=== PATIENT | female | born 1995 | race Caucasian/White ===

== ENCOUNTER 2020-02-15 12:58 | Outpatient (CLI) | payer OTHER, SELFPAY ==
--- NOTE | ~2020-02-15 | XR_ITS ---
XR hip LT min 3V w AP pelvis DATE: 02/15/2020 13:34 INDICATION: Left hip pain. No injury. TECHNIQUE: AP pelvis. AP, lateral and crosstable lateral views of left hip COMPARISON: None FINDINGS: There is rotatory levoscoliosis and postoperative change of the lumbar spine. The pubic symphysis and sacroiliac joints are intact. Hip joint spaces are symmetric and well preserv ed. No fracture, dislocation, avascular necrosis or bone destruction of the left hip is detected. IMPRESSION: Rotatory levoscoliosis of the lumbar spine Postoperative change of the lumbar spine Reviewed, dictated and finalized at location A.
== END 2020-02-15 12:59 | disposition home or self-care (01) ==
LOC: ANHIMG 13:09
PROVIDERS: PCP Family Medicine; Visit Provider Family Medicine
DX: M25.552 Pain in left hip (principal)
CPT/HCPCS: 73502

== ENCOUNTER 2020-04-06 18:06 | Emergency (ER) | payer OTHER, SELFPAY ==
[2020-04-06 18:15] VITALS: BP 152/73; PULSE 80; RESP 16; TEMP 36.2; O2SAT 99
--- NOTE | 2020-04-06 18:27 | ED.GENADULT ---
HPI - General Adult General Chief complaint: Back Pain/Injury Stated complaint: LBP XTD Time Seen by Provider: 04/06/20 18:20 Source: patient Mode of arrival: ambulatory Limitations: no limitations History of Present Illness HPI narrative: Patient is a 24-year-old female who presents with low back pain upon waking denies injury or trauma has tried ibuprofen and Tylenol with minimal improvement. Patient denies radicular symptoms or paresthesias or any recent illness or other complaints. Related Data Allergies Allergy/AdvReac Type Severity Reaction Status Date / Time No Known Allergies Allergy Verified 04/06/20 18:52 Review of Systems Review of Systems: All systems reviewed & are unremarkable except as noted in HPI and below PMFSH Surgical History Surgical History (Updated 04/06/20 @ 18:33 by Curry Monroy PA-C) History of orthopedic surgery Social History Social History Gender identity (if verbalized by the patient): Female Exam Narrative: Exam Narrative: GENERAL: Well-appearing, well-nourished, and in no acute distress. HEAD: Normocephalic, atraumatic. EYES: PERRLA and EOMI. ENT: Nares clear, no rhinorrhea or epistaxis. Mucous membranes moist. CHEST: Clear to auscultation. No respiratory distress. No wheezes rales or rhonchi HEART: Regular rate and rhythm. No murmur heard. Normal peripheral pulses. EXTREMITIES: Normal range of motion. No edema. Tenderness across the lower lumbar spine SKIN: Warm, dry, no rash. NEURO: No focal deficits. Alert and oriented x3. Cranial nerves II through XII grossly intact PSYCH: Normal mood and affect. Course Course Emergency Course: Patient in the room aware of case findings treatment plan diagnosis agreeing to follow-up with primary care for further evaluation Vital Signs Vital signs: Vital Signs Temperature 97.2 F L 04/06/20 18:15 Pulse Rate 80 04/06/20 18:15 Respiratory Rate 16 04/06/20 18:15 Blood Pressure 152/73 H 04/06/20 18:15 Pulse Oximetry 99 04/06/20 18:15 Temperature 97.2 F L 04/06/20 18:15 Pulse Rate 80 04/06/20 18:15 Respiratory Rate 16 04/06/20 18:15 Blood Pressure 152/73 H 11/26/20 18:15 Pulse Oximetry 99 04/06/20 18:15 Medical Decision Making MDM Narrative Medical decision making narrative: Patients pain is positional in nature and localized to back without signs of cord compression or cauda equina based on neurological exam, skeletal exam and history. No fever or other significant factors to suggest osteomyelitis or spinal epidural abscess. No symptoms or signs to suggest pain is referred from abdominal or / cardiopulmonary sources. No pulsatile masses noted on exam. Patient ambulates with steady gait and is stable for outpatient management given case findings. Vital Signs Vital Signs: Vital Signs Temperature 97.2 F L 04/06/20 18:15 Pulse Rate 80 04/06/20 18:15 Respiratory Rate 16 04/06/20 18:15 Blood Pressure 152/73 H 04/06/20 18:15 Pulse Oximetry 99 04/06/20 18:15 Temperature 97.2 F L 04/06/20 18:15 Pulse Rate 80 04/06/20 18:15 Respiratory Rate 16 04/06/20 18:15 Blood Pressure 152/73 H 04/06/20 18:15 Pulse Oximetry 99 04/06/20 18:15 Lab Data Labs: Lab Results 04/06/20 Range/Units 18:42 Urine Color Yellow (Yellow) Urine Appearance Clear (Clear) Urine pH 6.0 (5.0-9.0) Ur Specific [place] 1.021 (1.001-1.035) Urine Protein Negative (Negative) mg/dL Urine Glucose (UA) Negative (Negative) mg/dL Urine Ketones Negative (Negative) mg/dL Ur Blood (Man) 1+ H (Negative) Urine Nitrate Negative (Negative) Urine Bilirubin Negative (Negative) Urine Urobilinogen Negative (<2.0) mg/dL Leukocyte Esterase Rfl Negative (Negative) FELY/UL Urine RBC 3-5 H (0-2) /hpf Urine WBC 0-3 /hpf Ur Squamous Epith Cells Many H (Few) /hpf Urine Bacteria Trace /hpf Urine Mucus
[2020-04-06 18:54] LABS: Add Urine Microscopic? YES; Appearance Urine Clear (Clear); Bacteria Urine Trace /hpf; Bilirubin Urine Negative (Negative); Blood Urine 1+ (Negative); Color Urine Yellow (Yellow); Glucose Urine UA Negative (Negative); Ketones Urine Negative (Negative); Leukocyte Esterase Ur Negative LEU/UL (Negative); Mucus Urine Rare /lpf; Nitrate Urine Negative (Negative); Protein Urine Negative (Negative); Specific Grav Ur 1.021 (1.001-1.035); Squamous Epithelial Cell Urine Many /hpf (Few); Urobilinogen Urine Negative mg/dL (<2.0); WBC Urine 0-3 /hpf
== END 2020-04-06 19:31 | disposition home or self-care (01) ==
PROVIDERS: Emergency Medicine Emergency Medical Services; Emergency Provider Emergency Medicine; PCP Family Medicine
DX: M54.5 Low back pain (principal)
CPT/HCPCS: 81001; 81025; 99283

== ENCOUNTER 2020-06-01 13:55 | Emergency (ER) | payer OTHER, SELFPAY ==
--- NOTE | ~2020-06-01 | XR_ITS ---
EXAMINATION: XR finger 2nd LT min 2V DATE: 06/01/2020 17:10 INDICATION: Pain and swelling at the left second digit one day post cat bite TECHNIQUE: Dorsal palmar and lateral views of the left second digit were obtained COMPARISON: None FINDINGS: Bone alignment is normal. No fracture. Joint spaces are normal. Prominent soft tissue swelling about the left second proximal phalanx. No subcutaneous gas or radiopaque foreign body. IMPRESSION: 1. Soft tissue swelling at the base of the left index finger. No osseous abnormality. Reviewed, dictated and finalized at location A. [employer] IMPRESSION: 1. Soft tissue swelling at the base of the left index finger. No osseous abnorm ality.
[2020-06-01 15:51] VITALS: BP 146/98; PULSE 83; RESP 18; TEMP 36.3; O2SAT 98
[2020-06-01 17:20] LABS: Basophils Absolute Auto 0.1 K/mm3 (0.0-0.1); Basophils Percent Auto 0.5 % (0.2-1.2); Eosinophils Absolute Auto 0.1 K/mm3 (0-0.3); Eosinophils Percent Auto 0.5 % (0-4.4); Hematocrit 40.6 % (37.0-47.0); Hemoglobin 13.4 g/dL (12.0-15.0); Immature Granulocyte Absolute 0.04 K/mm3 (0.00-0.031); Immature Granulocyte Percent A 0.4 % (0-0.5); Lymphocytes Absolute Auto 2.28 K/mm3 (0.9-3.2); Lymphocytes Percent Auto 21.7 % (18.3-44.2); Mean Corpuscular Hemoglobin 27.6 pg (26-34); Mean Corpuscular Volume 83.7 fl (80-100); Mean Platelet Volume 9.9 fl (7.4-10.4); Monocytes Absolute Auto 0.6 K/mm3 (0.1-0.6); Monocytes Percent Auto 5.4 % (2.6-8.5); Neutrophils Absolute Auto 7.5 K/mm3 (1.3-6.7); Neutrophils Percent Auto 71.5 % (45.5-73.1); Platelet Count Result 283 k/mm3 (150-375); Red Blood Count 4.85 M/mm3 (4.2-5.4); Red Cell Distribution Width 13.2 % (11.5-14.5); White Blood Count 10.5 K/mm3 (4.5-10.0)
[2020-06-01 17:31] LABS: Alanine Aminotransferase 12 U/L (4-35); Albumin Level 4.2 g/dL (3.5-5.1); Alkaline Phosphatase 89 U/L (38-126); Anion Gap 7 mmol/L (8-16); Aspartate Amino Transferase 20 U/L (14-36); Bilirubin,Total 0.6 mg/dL (0.2-1.3); Blood Urea Nitrogen 5 mg/dL (7-17); Calcium 9.2 mg/dL (8.4-10.2); Carbon Dioxide 26 mmol/L (22-30); Chloride 103 mmol/L (98-107); Estimated CRCL calculation 177 ml/min; Estimated Glomerular Filt Rate > 60; Glucose 81 mg/dL (65-105); Potassium 3.9 mmol/L (3.4-5.0); Sodium 136 mmol/L (137-145)
--- NOTE | 2020-06-01 17:42 | ED.ANIMALBIT ---
HPI - Animal Bite General Chief Complaint: Animal Bite Stated Complaint: Cat Bite Yesterday Time Seen by Provider: 06/01/20 16:06 Source: patient Mode of arrival: ambulatory Limitations: no limitations History of Present Illness HPI narrative: This patient is 24 year old female who presents for evaluation of left index finger infection. She states yesterday afternoon she suffered a cat bite to left index finger. She was seen at [facility] and she was started on Augmentin. Today she noticed increased redness and pus drainage cat puncture wounds. she returned back to ER and she was told to continue the augmentin. Her pain is worse with movement of finger. She denies fever, nausea, vomiting. She is 8 weeks . Related Data Home Medications Medication Instructions Recorded Confirmed 06/01/20 amoxicillin-pot clavulanate tablet BID 06/01/20 Allergies Allergy/AdvReac Type Severity Reaction Status Date / Time No Known Allergies Allergy Verified 04/06/20 18:52 Review of Systems Review of Systems: All systems reviewed & are unremarkable except as noted in HPI and below PMFSH Past Medical History Medical History (Updated 06/02/20 @ 02:25 by Denisa Islas MD) Anxiety Asthma Surgical History Surgical History (Updated 04/06/20 @ 18:33 by Curry Monroy PA-C) History of orthopedic surgery Social History Social History (Updated 06/02/20 @ 02:25 by Denisa Islas MD) Smoking status: Never smoker Gender identity (if verbalized by the patient): Female Exam Const: General: no acute distress and alert Orientation/consciousness: patient oriented x3 Eyes: EOM: EOMs intact bilaterally Resp: Effort & Inspection: normal respiratory effort Neuro: General: patient oriented x3 and moves all extremities Gait exam (Neuro): Normal gait present Extrem: Other: left hand - left index finger with puncture wound proximal palmar aspect of finger, there palmar erythema with pustule but no active drainage, She is able to extend finger and she is able to flex finger. TTP proximal palmar finger. swelling to proximal finger but no entire finger. Psych: Mental Status: mental status grossly normal Affect: normal affect Course Reevaluation(s) Reevaluation #1: I discussed discharge plan with patient. She is comfortable with discharge. She does not have flexor tenosynovitis at this point that needs emergent surgery. Dr. Lara will see tomorrow. Will continue augmentin Date: 06/01/20 Time: 19:56 Consultations Consultation #1: came to ER to evaluate patient. Patient given IV antibiotics. He agrees patient can be discharge and he will see her tomorrow. Date: 06/01/20 Time: 19:39 Vital Signs Vital signs: Vital Signs Temperature 97.3 F L 06/01/20 15:51 Pulse Rate 83 06/01/20 15:51 Respiratory Rate 18 06/01/20 15:51 Blood Pressure 146/98 H 06/01/20 15:51 Pulse Oximetry 98 06/01/20 15:51 Temperature 97.3 F L 06/01/20 15:51 Pulse Rate 85 06/01/20 18:53 Respiratory Rate 16 06/01/20 18:53 Blood Pressure 136/83 06/01/20 18:53 Pulse Oximetry 100 06/01/20 18:53 MDM - Animal Bite Lab Data Attestation: I reviewed the patient's lab results. Result diagrams: 06/01/20 17:11 06/01/20 17:11 Labs: Lab Results 06/01/20 06/01/20 Range/Units 17:11 17:11 WBC 10.5 H (4.5-10.0) K/mm3 RBC 4.85 (4.2-5.4) M/mm3 Hgb 13.4 (12.0-15.0) g/dL Hct 40.6 (37.0-47.0) % MCV 83.7 (80-100) fl MCH 27.6 (26-34) pg MCHC 33.0 (32-36) g/dl RDW 13.2 (11.5-14.5) % Plt Count 283 (150-375) k/mm3 MPV 9.9 (7.4-10.4) fl Immature Gran % (Auto) 0.4 (0-0.5) % Neut % (Auto) 71.5 (45.5-73.1) % Lymph % (Auto) 21.7 (18.3-44.2) % [place] % (Auto) 5.4 (2.6-8.5) % Eos % (Auto) 0.5 (0-4.4) % Baso % (Auto) 0.5 (0.2-1.2) % Lymph # (Auto) 2.28 (0.9-3.2) K/mm3 [place] # (Auto) 0.6 (0.1-0.6
[2020-06-01] MEDS: AMPICILLIN SULB 1.5 GM/NS 50ML 1.5 GM/50 ML VIAL IVPB (17:56)
[2020-06-01 18:53] VITALS: BP 136/83; PULSE 85; RESP 16; O2SAT 100
--- NOTE | 2020-06-01 19:36 | P.CONS_ITS ---
HPI Data of Consult Date/Time: 06/01/20 19:36 Primary Care Provider: Beatriz Savage, Consult Narrative Narrative: Hannah Watts is a 24 year old female who is . She is in the ED for evaluation and treatment of a painful cat bite of her left hand. This happened in the jaws of a stray cat at her home yesterday. There were two puncture wounds. The site became markedly inflamed today. In the ED she has been given IV Unisyn. She is UTD with her Tdap, she takes vitamins only. She is impressed with the pain she has. But, she is able to extend her index finger where the bites are near the MPJ. She tolerates passive extension of all joints. One bite is dorsal and the other is palmar. Both show surrounding erythema and some edema. She flexes about 50 %. No lymphangitis. No fever. It seems she has early cellulitis. Does not have tenosynovitis at this time. [facility] Surgical History Surgical History (Updated 04/06/20 @ 18:33 by Curry Monroy PA-C) History of orthopedic surgery Social History Social History Gender identity (if verbalized by the patient): Female Meds Home Medications and Allergies Home Medications Medication Instructions Recorded Confirmed Type 06/01/20 History amoxicillin-pot clavulanate tablet BID 06/01/20 History Allergies Allergy/AdvReac Type Severity Reaction Status Date / Time No Known Allergies Allergy Verified 04/06/20 18:52 Vital Signs Vital Signs - 24 hr 06/01/20 15:51 06/01/20 18:53 Temperature 36.3 C L Pulse Rate 83 85 Respiratory Rate 18 16 Blood Pressure 146/98 H 136/83 Pulse Oximetry 98 100 Results Labs CBC & Chem 7: 06/01/20 17:11 06/01/20 17:11 Labs: Short CBC 06/01/20 Range/Units 17:11 WBC 10.5 H (4.5-10.0) K/mm3 Hgb 13.4 (12.0-15.0) g/dL Hct 40.6 (37.0-47.0) % Plt Count 283 (150-375) k/mm3 BMP 06/01/20 17:11 Sodium 136 L Potassium 3.9 Chloride 103 Carbon Dioxide 26 BUN 5 L Creatinine 0.40 L Glucose 81 Calcium 9.2 Liver Function 06/01/20 Range/Units 17:11 Total Bilirubin 0.6 (0.2-1.3) mg/dL AST 20 (14-36) U/L ALT 12 (4-35) U/L Alkaline Phosphatase 89 (38-126) U/L Albumin 4.2 (3.5-5.1) g/dL
== END 2020-06-01 20:07 | disposition home or self-care (01) ==
PROVIDERS: Emergency Provider General Practice; PCP Family Medicine
DX: L08.9 Local infection of the skin and subcutaneous tissue, unspecified (principal); S61.251A Open bite of left index finger without damage to nail, initial encounter; Z33.1 Pregnant state, incidental; W55.01XA Bitten by cat, initial encounter
CPT/HCPCS: 36415; 73140; 80053; 85025; 96365; 99284; J0295

== ENCOUNTER 2020-08-21 11:07 | Emergency (ER) | payer OTHER, SELFPAY ==
[2020-08-21 11:42] VITALS: BP 137/88; PULSE 93; RESP 18; TEMP 36.3; O2SAT 99
[2020-08-21 11:59] LABS: Basophils Percent Auto 0.4 % (0.2-1.2); Eosinophils Absolute Auto 0.4 K/mm3 (0-0.3); Eosinophils Percent Auto 3.9 % (0-4.4); Hematocrit 38.2 % (37.0-47.0); Hemoglobin 12.8 g/dL (12.0-15.0); Immature Granulocyte Absolute 0.05 K/mm3 (0.00-0.031); Immature Granulocyte Percent A 0.5 % (0-0.5); Lymphocytes Absolute Auto 1.76 K/mm3 (0.9-3.2); Lymphocytes Percent Auto 17.8 % (18.3-44.2); Mean Corpuscular HGB Conc 33.5 g/dl (32-36); Mean Corpuscular Volume 83.6 fl (80-100); Mean Platelet Volume 9.8 fl (7.4-10.4); Monocytes Absolute Auto 0.5 K/mm3 (0.1-0.6); Monocytes Percent Auto 4.9 % (2.6-8.5); Neutrophils Absolute Auto 7.2 K/mm3 (1.3-6.7); Neutrophils Percent Auto 72.5 % (45.5-73.1); Platelet Count Result 286 k/mm3 (150-375); Red Blood Count 4.57 M/mm3 (4.2-5.4); White Blood Count 9.9 K/mm3 (4.5-10.0)
[2020-08-21 12:11] LABS: Alanine Aminotransferase 11 U/L (4-35); Albumin Level 3.8 g/dL (3.5-5.1); Alkaline Phosphatase 81 U/L (38-126); Anion Gap 5 mmol/L (8-16); Aspartate Amino Transferase 18 U/L (14-36); Bilirubin,Total 0.1 mg/dL (0.2-1.3); Blood Urea Nitrogen 4 mg/dL (7-17); Calcium 8.9 mg/dL (8.4-10.2); Carbon Dioxide 25 mmol/L (22-30); Chloride 106 mmol/L (98-107); Estimated CRCL calculation 184 ml/min; Estimated Glomerular Filt Rate > 60; Glucose 84 mg/dL (65-105); Lipase 112 U/L (23-300); Potassium 4.2 mmol/L (3.4-5.0); Sodium 136 mmol/L (137-145)
[2020-08-21 13:49] VITALS: BP 123/68; PULSE 82; RESP 20; TEMP 36.7; O2SAT 97
[2020-08-21] MEDS: PROMETHAZINE HCL 25 MG/ML AMPUL 12.5 MG IV PUSH (14:09)
[2020-08-21] MEDS: SODIUM CHLORIDE 0.9% IV 1,000 ML 999 ML IV CONT (14:10)
--- NOTE | 2020-08-21 14:25 | ED.NAVMDI ---
HPI - Nausea/Vomiting/Diarrhea General Chief complaint: Nausea/Vomiting/Diarrhea Stated complaint: Vomiting x1 week, Cough, Ear/Throat Pain, Time Seen by Provider: 08/21/20 13:52 History of Present Illness HPI Narrative: Patient is a 25-year-old female who presents ER with nausea vomiting diarrhea for the last 3 days. No relief with Zofran at home. No fevers or chills or sweats. She is currently 19 weeks . She has not felt her baby move yet. She sees an OB in [place]. No leakage of fluid from vagina or vaginal bleeding. No lower abdominal pain. She has no urinary symptoms. No known sick contacts. Related Data Home Medications Medication Instructions Recorded Confirmed 1 tablet PO DAILY 06/01/20 Allergies Allergy/AdvReac Type Severity Reaction Status Date / Time No Known Allergies Allergy Verified 04/06/20 18:52 Review of Systems Review of Systems: All systems reviewed & are unremarkable except as noted in HPI and below Constitutional: Constitutional: Denies chills, Denies fever(s) and Denies weakness ENT: Denies nasal congestion and Denies sore throat Respiratory: Respiratory: Denies cough and Denies dyspnea Gastrointestinal: Gastrointestinal: Denies abdominal pain, Reports diarrhea, Reports nausea and Reports vomiting Genitourinary: Genitourinary: Denies nocturia, Denies dysuria and Denies flank pain PMFSH Past Medical History Medical History (Updated 08/21/20 @ 16:29 by Subhash Velasquez MD) Anxiety Asthma Surgical History Surgical History (Updated 04/06/20 @ 18:33 by Curry Monroy PA-C) History of orthopedic surgery Social History Social History (Updated 06/02/20 @ 02:25 by Denisa Islas MD) Smoking status: Never smoker Gender identity (if verbalized by the patient): Female Exam Narrative: Exam Narrative: GENERAL: Well-appearing, well-nourished, and in no acute distress. HEAD: Normocephalic, atraumatic. ENT: Mucous membranes moist. CHEST: Clear to auscultation. No respiratory distress. HEART: Regular rate and rhythm. Normal peripheral pulses. ABDOMEN: Soft, nontender, nondistended, fundus palpated just below the umbilicus. EXTREMITIES: Normal range of motion. No edema. SKIN: Warm, dry, no rash. NEURO: Alert and oriented x3. PSYCH: Normal mood and affect. Course Course Emergency Course: Patient felt much better with IV fluids and antiemetics. Discharge home. Vital Signs Vital signs: Vital Signs Temperature 97.3 F L 08/21/20 11:42 Pulse Rate 93 08/21/20 11:42 Respiratory Rate 18 08/21/20 11:42 Blood Pressure 137/88 08/21/20 11:42 Pulse Oximetry 99 08/21/20 11:42 Temperature 98.0 F 08/21/20 13:49 Pulse Rate 82 08/21/20 13:49 Respiratory Rate 20 08/21/20 13:49 Blood Pressure 129/93 H 08/21/20 15:16 Pulse Oximetry 97 08/21/20 13:49 MDM - Nausea/Vomiting/Diarrhea Lab Data Result diagrams: 08/21/20 11:47 08/21/20 11:47 Labs: Lab Results 08/21/20 08/21/20 08/21/20 Range/Units 11:47 11:47 15:28 WBC 9.9 (4.5-10.0) K/mm3 RBC 4.57 (4.2-5.4) M/mm3 Hgb 12.8 (12.0-15.0) g/dL Hct 38.2 (37.0-47.0) % MCV 83.6 (80-100) fl MCH 28.0 (26-34) pg MCHC 33.5 (32-36) g/dl RDW 13.0 (11.5-14.5) % Plt Count 286 (150-375) k/mm3 MPV 9.8 (7.4-10.4) fl Immature Gran % (Auto) 0.5 (0-0.5) % Neut % (Auto) 72.5 (45.5-73.1) % Lymph % (Auto) 17.8 L (18.3-44.2) % [place] % (Auto) 4.9 (2.6-8.5) % Eos % (Auto) 3.9 (0-4.4) % Baso % (Auto) 0.4 (0.2-1.2) % Lymph # (Auto) 1.76 (0.9-3.2) K/mm3 [place] # (Auto) 0.5 (0.1-0.6) K/mm3 Eos # (Auto) 0.4 H (0-0.3) K/mm3 Baso # (Auto) 0.0 (0.0-0.1) K/mm3 Abs Immat Gran (auto) 0.05 H (0.00-0.031) K/mm3 Absolute Neuts (auto) 7.2 H (1.3-6.7) K/mm3 Absolute Nucleated RBC 0.0 (0.0-0.012) K/mm3 Nucleated RBC % 0.0 (0.0-0.2) % Sodium 136 L (137
[2020-08-21 14:32] VITALS: BP 132/56
[2020-08-21 15:01] VITALS: BP 131/82
[2020-08-21 15:16] VITALS: BP 129/93
[2020-08-21 15:47] LABS: Add Urine Microscopic? YES; Appearance Urine Cloudy (Clear); Bilirubin Urine Negative (Negative); Blood Urine Negative (Negative); Color Urine Yellow (Yellow); Glucose Urine UA Negative (Negative); Ketones Urine 1+ mg/dL (Negative); Leukocyte Esterase Ur Negative LEU/UL (Negative); Nitrate Urine Negative (Negative); Protein Urine Negative (Negative); Specific Grav Ur 1.014 (1.001-1.035); Urobilinogen Urine Negative mg/dL (<2.0)
[2020-08-21 16:08] LABS: RBC Urine 0-2 /hpf (0-2); WBC Urine 0-3 /hpf (0-3)
[2020-08-21 16:09] LABS: Bacteria Urine Trace /hpf; Mucus Urine Few /lpf; Squamous Epithelial Cell Urine Moderate /hpf (Few)
[2020-08-21 16:46] VITALS: BP 110/59; PULSE 80; RESP 16; O2SAT 98
== END 2020-08-21 16:46 | disposition home or self-care (01) ==
PROVIDERS: Emergency Medicine; Emergency Provider Emergency Medicine; PCP Family Medicine
DX: O99.612 Diseases of the digestive system complicating pregnancy, second trimester (principal); K52.9 Noninfective gastroenteritis and colitis, unspecified; O99.512 Diseases of the respiratory system complicating pregnancy, second trimester; J45.909 Unspecified asthma, uncomplicated; Z3A.19 19 weeks gestation of pregnancy
CPT/HCPCS: 36415; 80053; 81001; 83690; 85025; 96361; 96374; 99284; J2550; J7030

== ENCOUNTER 2020-08-29 17:44 | Emergency (ER) | payer OTHER, SELFPAY ==
--- NOTE | ~2020-08-29 | XR_ITS ---
EXAMINATION: XR chest 1V portable 08/29/2020 19:13 INDICATION: Cough and fever PROCEDURE: AP portable chest COMPARISON: 01/22/2016 FINDINGS: The lungs are clear. The cardiomediastinal silhouette is within normal limits. There are no pleural effusions. There is no pneumothorax suspected. There are Orr rods, position uncha nged. IMPRESSION: 1: NO ACUTE CARDIOPULMONARY DISEASE. Reviewed, dictated and finalized at location A.
[2020-08-29 17:59] VITALS: BP 135/76; PULSE 87; RESP 17; TEMP 36.3; O2SAT 97
--- NOTE | 2020-08-29 18:58 | ED.URI ---
HPI - URI/Sore Throat General Chief Complaint: Upper Respiratory Infection Stated Complaint: cough, ear pain x 4 weeks Time Seen by Provider: 08/29/20 18:50 Source: patient Mode of arrival: ambulatory Limitations: no limitations History of Present Illness HPI Narrative: This is a 25 year old female that presents to the ER for cold symptoms x 1 week. Reports cough, congestion, otalgia. Reports she has been using OTC medications with little relief. She is 20 weeks . Her OB is [facility] in [place]. Denies fever, pelvic cramping or vaginal bleeding. Related Data Home Medications Medication Instructions Recorded Confirmed 1 tablet PO DAILY 06/01/20 Allergies Allergy/AdvReac Type Severity Reaction Status Date / Time No Known Allergies Allergy Verified 08/29/20 18:03 Review of Systems Review of Systems: Narrative: CONSTITUTIONAL: Denies fever ENT: Reports rhinorrhea, congestion, otalgia. RESPIRATORY: Reports cough. Denies dyspnea All systems reviewed & are unremarkable except as noted in HPI and below PMFSH Past Medical History Medical History (Updated 08/29/20 @ 20:02 by Anisa Calix PA-C) Anxiety Asthma Surgical History Surgical History (Updated 04/06/20 @ 18:33 by Curry Monroy PA-C) History of orthopedic surgery Social History Social History (Updated 06/02/20 @ 02:25 by Denisa Islas MD) Smoking status: Never smoker Gender identity (if verbalized by the patient): Female Exam Narrative: Exam Narrative: GENERAL: Well-appearing, obese, and in no acute distress. HEAD: Normocephalic, atraumatic. EYES: EOMI. ENT: Nares clear, no rhinorrhea or epistaxis. Mucous membranes moist. Oropharynx without tonsillar hypertrophy exudate or other lesions. Bilateral TMs pearly kenny non-bulging NECK: Supple. No adenopathy or masses. CHEST: Clear to auscultation. No respiratory distress. No wheezes rales or rhonchi HEART: Regular rate and rhythm. No murmur heard. Normal peripheral pulses. EXTREMITIES: Normal range of motion. No edema. SKIN: Warm, dry, no rash. NEURO: No focal deficits. Alert and oriented x3. PSYCH: Normal mood and affect Course Vital Signs Vital signs: Vital Signs Temperature 97.4 F L 08/29/20 17:59 Pulse Rate 87 08/29/20 17:59 Respiratory Rate 17 08/29/20 17:59 Blood Pressure 135/76 08/29/20 17:59 Pulse Oximetry 97 08/29/20 17:59 Temperature 97.4 F L 08/29/20 17:59 Pulse Rate 87 08/29/20 17:59 Respiratory Rate 17 08/29/20 17:59 Blood Pressure 135/76 08/29/20 17:59 Pulse Oximetry 97 08/29/20 17:59 MDM - URI/Sore Throat MDM Narrative Medical decision making narrative: Patient presents to the ER for cold symptoms x 1 week. She is afebrile and nontoxic appearing. CBC with mild leukocytosis to 11.6. Metabolic panel without acute findings. Chest XR is clear. Patient is currently 20 weeks . heart tones noted to be in the 140s. She denies any pelvic cramping or vaginal bleeding. Patient updated on case findings. Instructed on care of viral infection. She is to follow-up with her primary doctor. She was given warnings to return to the ER Lab Data Attestation: I reviewed the patient's lab results. Result diagrams: 08/29/20 19:19 08/29/20 19:19 Labs: Lab Results 08/29/20 08/29/20 Range/Units 19:19 19:19 WBC 11.6 H (4.5-10.0) K/mm3 RBC 4.37 (4.2-5.4) M/mm3 Hgb 12.3 (12.0-15.0) g/dL Hct 36.5 L (37.0-47.0) % MCV 83.5 (80-100) fl MCH 28.1 (26-34) pg MCHC 33.7 (32-36) g/dl RDW 12.8 (11.5-14.5) % Plt Count 275 (150-375) k/mm3 MPV 9.8 (7.4-10.4) fl Immature Gran % (Auto) 0.8 H (0-0.5) % Neut % (Auto) 72.7 (45.5-73.1) % Lymph % (Auto) 20.4 (18.3-44.2) % [place] % (Auto) 4.4 (2.6-8.5) % Eos % (Auto) 1.2 (0-4.4) % Baso % (Auto) 0.5 (0.2-1.2) % Lymph # (Auto) 2.37 (0.9-3.2) K/mm3 [place] # (Auto) 0.5
[2020-08-29 19:30] LABS: Basophils Absolute Auto 0.1 K/mm3 (0.0-0.1); Basophils Percent Auto 0.5 % (0.2-1.2); Eosinophils Absolute Auto 0.1 K/mm3 (0-0.3); Eosinophils Percent Auto 1.2 % (0-4.4); Hematocrit 36.5 % (37.0-47.0); Hemoglobin 12.3 g/dL (12.0-15.0); Immature Granulocyte Absolute 0.09 K/mm3 (0.00-0.031); Immature Granulocyte Percent A 0.8 % (0-0.5); Lymphocytes Absolute Auto 2.37 K/mm3 (0.9-3.2); Lymphocytes Percent Auto 20.4 % (18.3-44.2); Mean Corpuscular HGB Conc 33.7 g/dl (32-36); Mean Corpuscular Hemoglobin 28.1 pg (26-34); Mean Corpuscular Volume 83.5 fl (80-100); Mean Platelet Volume 9.8 fl (7.4-10.4); Monocytes Absolute Auto 0.5 K/mm3 (0.1-0.6); Monocytes Percent Auto 4.4 % (2.6-8.5); Neutrophils Absolute Auto 8.5 K/mm3 (1.3-6.7); Neutrophils Percent Auto 72.7 % (45.5-73.1); Platelet Count Result 275 k/mm3 (150-375); Red Blood Count 4.37 M/mm3 (4.2-5.4); Red Cell Distribution Width 12.8 % (11.5-14.5); White Blood Count 11.6 K/mm3 (4.5-10.0)
[2020-08-29 19:44] LABS: Anion Gap 4 mmol/L (8-16); Blood Urea Nitrogen 6 mg/dL (7-17); Calcium 8.9 mg/dL (8.4-10.2); Carbon Dioxide 26 mmol/L (22-30); Chloride 106 mmol/L (98-107); Estimated CRCL calculation 148 ml/min; Estimated Glomerular Filt Rate > 60; Glucose 82 mg/dL (65-105); Potassium 4.1 mmol/L (3.4-5.0); Sodium 136 mmol/L (137-145)
[2020-08-29 20:30] VITALS: BP 123/79; PULSE 92; RESP 18; O2SAT 97
== END 2020-08-29 20:30 | disposition home or self-care (01) ==
PROVIDERS: Physician Assistant; Emergency Provider Emergency Medicine; PCP Family Medicine
DX: J06.9 Acute upper respiratory infection, unspecified (principal); F41.9 Anxiety disorder, unspecified; J45.909 Unspecified asthma, uncomplicated
CPT/HCPCS: 36415; 71045; 80048; 85025; 99283

== ENCOUNTER 2024-06-22 02:12 | Emergency (ER) | payer OTHER, SELFPAY ==
--- OUTSIDE RECORDS SUMMARY | 2024-06-22 02:14 | XMS_ITS | Clinical Summary ---
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 10/08/2020 Active Active Problems Problem Noted Date Diagnosed Date Spontaneous vaginal delivery ([facility] ([facility]) 01/10/2021 Social History Tobacco Use Types Packs/Day Years Used Date Smoking Tobacco: Never Smokeless Tobacco: Never Alcohol Use Standard Drinks/Week Comments Not Currently 0 (1 standard drink = 0.6 oz pur e alcohol) Humiliation, Afraid, Rape, and Kick questionnair e Answer Date Recorded Within the last year, have y ou been afraid of your partner or ex-partner? No 11/24/2020 Within the last year, have y ou been humiliated or emotionally abused in other ways by your partner or ex-partner? No Within the last year, have y ou been kicked, hit, slapped, or otherwise physically hurt by your partner or ex-partner? No 11/24/2020 Within the last year, have y ou been raped or forced to have any kind of sexual activity by your partner or ex-partner? No 11/24/2020 Depression Answer Date Recor ded Last EPDS Total Score 5 01/11/2021 Last EPDS Self Harm Result 01/11 Comments No Sex and Gender Information Value Date Recorded Sex Assigned at Not on file Legal Sex Female 7:24 PM CDT Gender Identity Not on file Sexual Orientation Not on file Last Filed Vital Signs Vital Sign Reading Time Taken Comments Blood Pressure 114/71 01/11/2021 8:17 PM CDT Pulse 94 01/11/2021 8:17 PM CDT Temperature 36.7 C (98.1 F) 01/11/2021 8:17 PM CDT Respiratory Rate 18 01/11/2021 8:17 PM CDT Oxygen Saturation 98% 01/11/2021 8:17 PM CDT Inhaled Oxygen Concentration - - Weight 103 kg (227 lb) 12/10/2020 11:00 PM CDT Height 154.9 cm (5' 1 ) 12/10/2020 11:00 PM CDT Body Mass Index 42.89 12/10/2020 11:00 PM CDT Plan of Treatment Health Maintenance Due Date Last Done Comments Annual Physical 1996 Hepatitis C 07/30/2011 Hepatitis B Vaccines (1 of 3 - 19+ 3-dose series) 2012 Cervical Cancer Screening Pap Smear (Age 30 to 64) Every 3 Years 06/04/2023 06/04/2020 Cervical Cancer Screening Pap with HPV Testing (Age 30 to 64) Every 5 Years 07/30/2023 06/04/2020 Cervical Cancer Screening with HPV 07/30/2023 COVID-19 Vaccine ( season) 2024 06/09/2020 Influenza Adult (#1) 2024 02/07/2014 DTaP, Tdap and Td Vaccines (3 - Td or Tdap) 03/21/2024 03/21/2014, 12/23/1997, 01/23/1996, Additional history exists HPV Vaccines Aged Out No longer eligi ble based on patient's age to complete this topic Meningococcal B Vaccine Aged Out No l onger eligible based on patient's age to complete this topic Meningococcal Vaccine Aged Out No sav steve eligible based on patient's age to complete this topic Pneumococcal Vaccine: Pediatrics (0 to 5 Years) and At-Risk Patients (6 to 64 Years) Aged Out No longer eligible based on patient's age to complete this topic RSV Immunizations Under 20 Months Aged Out No longer eligible based on patient's age to complete this topic Insurance [employer] Advance Directives * Full Code (Latest Code Status on File) Date Activated Date Inactivated Comments 01/10/2021 1:45 AM 01/10/2021 7:57 PM Care Teams 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
--- OUTSIDE RECORDS SUMMARY | 2024-06-22 02:14 | XMS_ITS | Encounter Summary ---
Author Organization [facility] Address [facility] [place] [address] Care Team Providers Care Lead Warehouse Associate Name Role Phone Beatriz Savage MD Primary Care Provider [phone] Encounter Details Date Type Department Care Team (Late st Contact Info) Description 02/03/2021 Hospital Follow-up Call [facility] [place] [address] Sagrario Gaitan, RN Anesthesia Record Procedure Summary Procedure Name Responsible Anesthesiologist Anesthesia Start Time Anesthesia Stop Time LABOR EPIDURAL Events Date Time Event Comment 01/10/2021 1453 AN COLLAR BAND CREASER Prepped 02/07/2021 1547 ANE Not Admin Meds * Agents No agents on file. * Blood No blood administrations on file. Lines, Drains, and Airways No LDAs on file. documented in this encounter Social History Tobacco Use Types Packs/Day Years [...] on file Sexual Orientation Not on file COVID-19 Exposure Response Date Recorded In the last month, have you been in contact with someone who was confirmed or suspected to have Coronavirus / COVID-19? No / Unsure 01/10/2021 12:06 AM CDT documented as of this encounter Functional Status * RETIRED Are you deaf or do you have serious difficulty hearing Answer Date of Assessment Author Status No 01/10/2021 1:23 AM CDT Activ e * RETIRED Are you blind or do you have serious difficulty seeing, even when wearing glasses? Answer Date of Assessment Author Status No 01/10/2021 1:23 AM CDT Activ e * Do you have serious difficulty walking or climbing stairs? Answer Date of Assessment Author Status No 01/10/2021 1:23 AM CDT Teresa Tesfaye RN Active * Do you have difficulty dressing or bathing? Answer Date of Assessment Author Status No 01/10/2021 1:23 AM CDT Teresa Tesfaye RN Active * Because of a physical, mental, or emotional condition, do you have difficulty doing errands alone such as visiting a doctor's office or shopping? Answer Date of Assessment Author Status No 01/10/2021 1:23 AM CDT Teresa Tesfaye RN Active documented as of this encounter Mental Status * Because of a physical, mental, or emotional condition, do you have serious difficulty concentrating, remembering, or making decisions? Answer Entry Date Author Status No 01/10/2021 1:23 AM ILIANAT Teresa Tesfaye RN Active documented in this encounter Plan of Treatment Not on file documented as of this encounter Visit Diagnoses Not on filedocumented in this encounter Care Teams Lead Warehouse Associate Relationship Specialty Start Date End Date Beatriz Savage MD [address] [facility] [address] [place] [address] PCP - General 12/25/13 documented as of this encounter
--- OUTSIDE RECORDS SUMMARY | 2024-06-22 02:14 | XMS_ITS | Clinical Summary ---
Author Organization [facility] Address [address] [place] [address] Phone Care Team Providers Care Car Wash Attendant Automatic Name Role Phone Beatriz Savage MD Primary Care Provider [phone] Allergies Active Allergy Reactions Criticality Noted Date Comments Sulfamethoxazole-Trimethoprim Other (see Comments) 04/07/2020 Dizziness Medications predniSONE (DELTASONE) 50 MG Tablet Take 1 Tab by mouth daily. 9 Tab 04/07/2020 Active HYDROcodone-acet aminophen (NORCO) 5-325 MG Tablet Take 1 Tab by mouth every 6 hours as needed for Severe pain. 20 Tab 04/07/2020 Active Social History Tobacco Use Types Packs/Day Years Used Date Smoking Tobacco: Never Assessed Comments No Sex and Gender Information Value Date Recorded Sex Assigned at Not on file Legal Sex Female 6:04 PM FRAUD REPRESENTATIVE Gender Identity Not on file Sexual Orientation Not on file Last Filed Vital Signs Vital Sign Reading Time Taken Comments Blood Pressure 120/78 04/07/2020 8:13 PM FRAUD REPRESENTATIVE Pulse 73 04/07/2020 8:15 PM FRAUD REPRESENTATIVE Temperature 36.3 C (97.4 F) 04/07/2020 6:08 PM FRAUD REPRESENTATIVE Respiratory Rate 18 04/07/2020 8:15 PM FRAUD REPRESENTATIVE Oxygen Saturation 100% 04/07/2020 8:15 PM FRAUD REPRESENTATIVE Inhaled Oxygen Concentration - - Weight 95.3 kg (210 lb) 04/07/2020 6:08 PM FRAUD REPRESENTATIVE Height 154.9 cm (5' 1 ) 04/07/2020 6:08 PM FRAUD REPRESENTATIVE Body Mass Index 39.68 04/07/2020 6:08 PM FRAUD REPRESENTATIVE Plan of Treatment Health Maintenance Due Date Last Done Comments Hepatitis C Virus (HCV) Screening 1993 TdaP Immunization 1993 Pap Smear 2014 Cervical Cancer Screening (CCS) 07/30/2023 HPV/Cotest 07/30/2023 Influenza Immunization (#1) 2024 02/07/2020, 0 01/14/2017 SARS-COV-2 Immunization ( season) 2024 03/05/2021, 02/12/2021, 06/09/2020 Respiratory Syncytial Virus (RSV) Immunization (Adult) (1 - 1-dose 75+ series) 2068 Hepatitis B Immunization Completed 994, 1993, 1993 DTaP/Tdap/Td Immunization Discontinued 1997, 01/23/1996, 12/25/1994, Additional history exists Meningococcal Immunization (ACWY) Aged Out No longer eligible based on patient's age to complete this topic Pneumococcal Immunization Combined Aged Out No longer eligible based on patient's age to complete this topic Rotavirus Immunization Aged Out No lo nger eligible based on patient's age to complete this topic Insurance [address] [id number] MEDICAID [employer] Care Teams Car Wash Attendant Automatic Relationship Specialty Start Date End Date Beatriz Savage MD [address] [facility] [address] [place] [address] PCP - General Family Medicine 04/07/20
--- OUTSIDE RECORDS SUMMARY | 2024-06-22 02:14 | XMS_ITS | Data Portability ---
Author Organization [facility], [facility] Address [address] [place] [address] Care Team Providers Care Kitchen Operator Name Role Phone JEAN-CLAUDE DALY Primary Care Provider Assessment No assessment recorded. Plan of Treatment Reminders Order Date Submit Date Provider Last Modified By Organization Details Last Modified Time Details Appointments None record ed. Lab None record ed. Referral None record ed. Procedures None record ed. Surgeries None record ed. Imaging None record ed. Medication Orders None record ed. Patient TargetsNo targets recorded. Patient InstructionsNo instructions recorded. Reason for Referral None Reported. Problems Name Problem SNOMED Code Status Onset Date Resolution Date Notes Provider Name and Address Organization Details Recorded Time Gestatio n period, 18 weeks 29752147 Completed 202012/08/2020 18 weeks gestatio n of pregnanc y; Progress : Stable Added By: Michael Moralez Add to Current Problems : NO ProblemS tatus: Resolve Not Available [facility] 2 15:39:57 Gestatio n period, 28 weeks 12842063 Completed 202012/08/2020 28 weeks gestatio n of pregnanc y; Progress : Stable Added By: Michael Moralez Add to Current Problems : NO ProblemS tatus: Resolve Not Available [facility] 2 15:39:57 Hyperten myah in the obstetri c context Completed 202012/08/2020 Pre-exis ting essentia l hyperten myah complica ting pregnanc y, second trimeste r; Progress : Stable Added By: Michael Moralez Add to Current Problems : NO ProblemS tatus: Resolve Not Available [facility] 2 15:39:56 Normal pregnanc y in multigra yvette [id number] Completed 202002/20/2021 Encounte r for supervis ion of other normal pregnanc y, second trimeste r; Progress : Stable Added By: Michael Moralez Add to Current Problems : NO ProblemS tatus: Resolve; Start Date : 09/02/19 21 Encou nter for supervis ion of other normal pregnanc y, third trimeste r; Progress : Stable Added By: Jenn Truong Add to Current Problems : NO ProblemS tatus: Resolve Not Available [facility] 2 15:39:57 Gestatio n period, 30 weeks [id number] Completed 202012/08/2020 30 weeks gestatio n of pregnanc y; Progress : Stable Added By: Jenn Truong Add to Current Problems : NO ProblemS tatus: Resolve Not Available [facility] 2 15:39:56 Gestatio n period, 20 weeks 76507473 Completed 202012/08/2020 20 weeks gestatio n of pregnanc y; Progress : Stable Added By: Michael Moralez Add to Current Problems : NO ProblemS tatus: Resolve Not Available [facility] 2 15:39:55 Gestatio n period, 21 weeks [id number] Completed 202012/08/2020 21 weeks gestatio n of pregnanc y; Progress : Stable Added By: Elba Obando Add to Current Problems : NO ProblemS tatus: Resolve Not Available [facility] 2 15:39:58 Gestatio n period, 32 weeks [id number] Completed 202012/08/2020 32 weeks gestatio n of pregnanc y; Progress : Stable Added By: Jenn Truong Add to Current Problems : NO ProblemS tatus: Resolve Not Available [facility] 2 15:39:59 Hemoglob in A1C - diabetic control finding 579193453 Completed 202002/20/2021 Other abnormal glucose; Progress : Stable Added By: Moreno Whitehead Add to Current Problems : NO ProblemS tatus: Resolve Not Available [facility] 2 15:39:58 Pre-exis ting hyperten myah in obstetri c context 44706573 Completed 202002/20/2021 Unspecif ied pre-exis ting hyperten myah complica ting pregnanc y, unspecif ied trimeste r; Progress : Stable Added By: Shirley Montgomery i Add to Current Problems : NO ProblemS tatus: Resolve Not Available [facility] 2 15:39:59 Gestatio n period, 24 weeks 357791831 Completed 202012/08/2020 24 weeks gestatio n of pregnanc y; Progress : Stable Added By: Michael Moralez Add to Current Problems : NO ProblemS tatus: Resolve Not Available [facility] 2 15:40:[address] Concept Completed 202001/05/2021 Supervis ion of other high risk pregnanc ies, second trimeste r; Progress : Stable Added By: Michael Moralez Add to Current Problems : NO ProblemS tatus: Resolve Not Available [facility] 2 15:39:54 Gestatio n period, 34 weeks [id number] Completed 202001/05/2021 34 weeks gestatio n of pregnanc y; Progress : Stable Added By: Juli Bowen Add to Current Problems : NO ProblemS tatus: Resolve Not Available [facility] 2 15:39:56 Hyperten myah in the obstetri c context Completed 202002/20/2021 Pre-exis ting essentia l hyperten myah complica ting pregnanc y, third trimeste r; Progress : Stable Added By: Tereza Cagle Add to Current Problems : NO ProblemS tatus: Resolve Not Available [facility]:[address] Concept Completed 202002/20/2021 Decrease d movement s, third trimeste r, not applicab le or unspecif ied; Progress : Stable Added By: Tereza Cagle Add to Current Problems : NO ProblemS tatus: Resolve Not Available [facility] 2 15:39:[address] Concept Completed 202002/20/2021 Supervis ion of other high risk pregnanc ies, third trimeste r; Progress : Stable Added By: Tereza Cagle Add to Current Problems : NO ProblemS tatus: Resolve Not Available [facility] 2 15:39:58 Karen ry postpart um mood disturba nce [id number] Completed 202002/20/2021 Postpart um mood disturba nce; Progress : Stable Added By: Jenn Truong Add to Current Problems : NO ProblemS tatus: Resolve Not Available [facility] 2 15:39:56 Lochia finding Completed 202003/13/2021 Encounte r for routine postpart um follow-u p; Progress : Stable Added By: Juli Bowen Add to Current Problems : NO ProblemS tatus: Resolve Not Available [facility] 2 15:39:55 Gestatio n period, 38 weeks [id number] Completed 202002/20/2021 38 weeks gestatio n of pregnanc y; Progress : Stable Added By: Tereza Cagle Add to Current Problems : NO ProblemS tatus: Resolve Not Available [facility] 2 15:39:58 Gestatio n period, 37 weeks 67131323 Completed 202001/05/2021 37 weeks gestatio n of pregnanc y; Progress : Stable Added By: Jenn Truong Add to Current Problems : NO ProblemS tatus: Resolve Not Available [facility] 2 15:39:55 Gestatio n period, 36 weeks [id number] Completed 202001/05/2021 36 weeks gestatio n of pregnanc y; Progress : Stable Added By: Jenn Truong Add to Current Problems : NO ProblemS tatus: Resolve Not Available [facility] 2 15:39:59 Depressi on screenin g Completed 202003/13/2021 Encounte r for screenin g for maternal depressi on; Progress : Stable Added By: Juli Bowen Add to Current Problems : NO ProblemS tatus: Resolve Not Available [facility] 2 15:39:55 Antenata l screenin g Completed 202002/20/2021 Encounte r for antenata l screenin g for Streptoc occus B; Progress : Stable Added By: Jenn Truong Add to Current Problems : NO ProblemS tatus: Resolve Encounte r for antenata l screenin g for cervical length; Progress : Stable Added By: Elba Obando Add to Current Problems : NO ProblemS tatus: Resolve; Start Date : 09/12/19 Encou nter for other specifie d antenata l screenin g; Progress : Stable Added By: Tereza Cagle Add to Current Problems : NO ProblemS tatus: Resolve; Start Date : 08/17/19 Not Available [facility] 2 15:39:57 Insertio n of subcutan eous contrace ptive Active 2020 Encounte r for initial prescrip tion of implanta ble subderma l contrace ptive; Progress : Stable Added By: Juli Bowen Add to Current Problems : YES ProblemS tatus: Current Not Available [facility] 2 15:39:58 Antenata l screenin g for malforma tion Completed 202002/20/2021 Encounte r for antenata l screenin g for malforma tions; Progress : Stable Added By: Michael Moralez Add to Current Problems : NO ProblemS tatus: Resolve Not Available [facility] 2 15:40:00 Problem Notes None recorded. Medical Equipment None Reported. Allergies No known drug allergies Medications Name Sig Start Date Stop Date Status Note LastModified by Organization Details LastModified Time amoxicill in 500 mg capsule TAKE 1 CAPSULE BY MOUTH TWICE A DAY active Not Available Not Available No t Available acetamino phen 325 mg tablet TAKE 2 TABLETS (650 MG TOTAL) BY MOUTH EVERY 4 (FOUR) HOURS NEEDED. 07/18 completed Not Available Not Available Not Available triamcino lone acetonide 0.1 % topical cream APPLY A THIN LAYER TO AFFECTED AREA(S) TWICE A DAY 07/18 completed Not Available Not Available Not Available amoxicill in 875 mg tablet TAKE 1 TABLET BY MOUTH TWICE A DAY FOR 10 DAYS active Not Available Not Available No t Available promethaz ine 25 mg tablet TAKE 1 TABLET BY MOUTH EVERY 6 HOURS NEEDED FOR NAUSEA AND VOMITING 07/18 completed Not Available Not Available Not Available docusate sodium 100 mg capsule TAKE 1 CAPSULE (100 MG TOTAL) BY MOUTH 2 (TWO) TIMES DAILY NEEDED FOR CONSTIPA TION. 07/18 completed Not Available Not Available Not Available ibuprofen 600 mg tablet TAKE 1 TABLET BY MOUTH EVERY 6 HOURS NEEDED 07/18 completed Not Available Not Available Not Available fluticaso ne propionat e 50 mcg/actua tion nasal spray,vanesa pension USE 2 SPRAYS IN EACH NOSTRIL EVERY DAY AT BEDTIME 07/18 completed Not Available Not Available Not Available amoxicill in 875 mg-potass ium clavulana te 125 mg tablet TAKE 1 TABLET BY MOUTH TWICE A DAY active Not Available Not Available No t Available neomycin- polymyxin -hydrocor t 3.5 mg-10,000 unit/mL-1 % ear drops,vanesa p INSTILL 2 DROPS INTO BOTH EARS 4 TIMES DAILY active Not Available Not Available No t Available escitalop gerardo 10 mg tablet TAKE 1 TABLET BY MOUTH ONCE DAILY AFTER COMPLETI NG 5 MG TABLETS 07/18 completed Not Available Not Available Not Available escitalop gerardo 5 mg tablet TAKE 1 TABLET BY MOUTH ONCE DAILY FOR 1 WEEK 07/18 completed Not Available Not Available Not Available amoxicill in 09/29 completed amoxicil jackson RxNorm: [id number] Allow Substitu tion: False Refill Denied: No Refill DateOccu rred: 08/17/19 21 Edited by: Michael Rodriguez ) on 09/30/19 21 Stopped by: autumn(Michael Faria ) on 09/30/19 21 Not Available Not Available Not Available 01/25 completed Allow Substitu tion: False Refill Denied: No Refill DateOccu rred: 08/17/19 Edited by: Stefanie Torres ) on 01/26/20 Stopped by: Stefanie Torres ) on 01/26/20 21 Not Available Not Available Not Available cholecalc iferol (vitamin D3) 10 mcg/mL (400 unit/mL) oral drops 07/18 completed Not Available Not Available Not Available Nexplanon active Not Available Not Kamini ilable Not Available Vitamins Plus Low Iron 27 mg iron-1 mg tablet TAKE 1 TABLET BY MOUTH EVERY DAY 07/18 completed Not Available Not Available Not Available Vienva 0.1 mg-20 mcg tablet TAKE 1 TABLET BY MOUTH EVERY DAY active Not Available Not Available No t Available Zahraa 0.25 mg-35 mcg tablet TAKE 1 TABLET BY MOUTH EVERY DAY 07/18 completed Not Available Not Available Not Available Vitals Date Recorded Body height Body mass index (BMI) Body weight Body temperature Systolic blood pressure Diastolic blood pressure Provider Name and Address Organization Details Last Updated DateTime 2 154.94 cm 41.9 kg/m2 742806. 79 g 97.6 [degF] 116 mm[Hg] 68 mm[Hg] [employer] [facility] IV 18:56:27 Social History Question Answer Notes LastModified by Organizat ion Details LastModified Time What Is Your Relationship Status? Single Information not available 07/04/2021 Are You Sexually Active? Yes Information not available 07/04/2021 Sex: Unknown Functional Status None recorded. Mental Status None recorded. Family History Relationship Description Onset Age of this Age Resolved Age Notes LastModified by Organization Details LastModified Time Father Hypertensive disorder [email or web address] Not available 06/13 13:11:15 Mother Hypertensive disorder [email or web address] Not available 06/13 13:11:15 Mother Type 1 diabetes mellitus [email or web address] Not available 06/13 13:11:34 Medical History No medical history recorded. Gynecological History Statement/Question Response HPV Vaccine N Date of Last Pap Smear Current Control Method Implant Age at Menarche 14 Date of LMP 02/16/2021 Obstetrics History GPAL:G 3 P 3 0 0 3 Type Value Full Term 3 Living 3 Total 3 Past Encounters Encounter ID Performer Location Encounter Start Date Encounter Closed Date Diagnosis/Indication Diagnosis SNOMED-CT Code Diagnosis ICD10 Code Diagnosis Note [id number] DANIELA Pichardo [facility] [address] [facility] [place] [address] 07/18/2021 18:03:59 07/26/2021 14:37:51 Surveillance of contraception [id number] Z30.40 Discussed replacing the Nexplanon with an IUD as Hannah desires removal of the implant. She doesn't want to take pills, use a vaginal ring, or get depo-prove ra. Explained R/B/ARs of the progestero ne containing IUD:Risks of abnormal bleeding, uterine perforatio n (05/999), infection, interrupti on of , expulsion, failure, and ectopic in rare cases were reviewed and all questions were answered. Reviewed >99% efficacy as contracept june and potential for AUB/crampi ng for first few days to months, then likely lightening of cycles over time with approx 30% of pts developing amenorrhea .Education al pamphlet provided and Hannah will consider the MIrena IUD. Health Concerns Section Related Observation LastModified by Organization Detai ls LastModified Time None Recorded Concern Status LastModified by Organization Details LastModified Time None Recorded Advance Directives Directive None Recorded Payers Encounter Date Sequence Insurance Name Policy Number Policy Mary Covered Member ID Mary Member ID Guarantor Name 07/18/2021 1 [facility] - DOS ON OR AFTER 20 (MEDICAID REPLACEMENT - HMO) Hannah Stefanie [id number] Hannah Stefanie Notes Date Note Type Note Provider Name and Address Organization Details Recorded Time 07/18/2021 text/html Abnormal BleedingReported bypatient.Onset/Timing :irregular Duration:10-15 days/month Quality:spotting;irreg ular;heavy Associated Symptoms:fatigue;bloat ing Hannah is here with c/o irregular and heavy bleeding on Nexplanon since insertion. She has taken estrogen to stop the bleeding w/o much success. Nexplanon was inserted 03/2021. DANIELA Pichardo [address] [facility], [place], [address], [facility] [employer] 07/21/2021 09:09:05 OBGyn Episode Ob Episode Information Episode Created Date Number of Fetuses Patient Bloodtype Patient rh Status Prepregnancy Weight lbs Domestic Partner Domestic Partner Phone Father Name Borough Coordinator Status 07/04/19 22 1 CLOSED Fetus Data First Name Last Name Admitted to NICU Weight (g) Sex Living Outcome Pediatric Complications Fetus ID Race Codes Race Delivery Type 3486.76 1704 M Full Term [id number] Juan Carlos Calculation Initial Juan Carlos Date Initial Exam Date Initial Exam Provider Initial Ultrasound Date Last Menstrual Period Date Ultra Sound Weeks Gestation 0 Eighteen To Twenty Week Juan Carlos Update Ultra Sound Date Fundal Height At Umbil Quickening Date Ultra Sound Latest Weeks Gestation Final Juan Carlos Confirmed By Final Juan Carlos Confirmed Date Final Juan Carlos Date Ultra Sound Latest Days Gestation 0 0 Menstrual History Last Menstrual Date Menses Monthly On Bcp Conception Prior Menses Frequency Hcg Plus Date Menarche Onset Age Delivery Information Delivery Date Delivery Type Labor Anesthesia Weeks Gestation Incision Type Labor Labor Length Hrs Delivered By Post Complications Tubal Sterilization Discharge Date Comments 6 Discharge Information Feeding Method Contraceptive Method Maternal HG B and HCT Levels Ob Episode Information Episode Created Date Number of Fetuses Patient Bloodtype Patient rh Status Prepregnancy Weight lbs Domestic Partner Domestic Partner Phone Father Name Borough Coordinator Status 07/04/19 22 1 CLOSED Fetus Data First Name Last Name Admitted to NICU Weight (g) Sex Living Outcome Pediatric Complications Fetus ID Race Codes Race Delivery Type 2891.64 9 F Full Term [id number] Juan Carlos Calculation Initial Juan Carlos Date Initial Exam Date Initial Exam Provider Initial Ultrasound Date Last Menstrual Period Date Ultra Sound Weeks Gestation 0 Eighteen To Twenty Week Juan Carlos Update Ultra Sound Date Fundal Height At Umbil Quickening Date Ultra Sound Latest Weeks Gestation Final Juan Carlos Confirmed By Final Juan Carlos Confirmed Date Final Juan Carlos Date Ultra Sound Latest Days Gestation 0 0 Menstrual History Last Menstrual Date Menses Monthly On Bcp Conception Prior Menses Frequency Hcg Plus Date Menarche Onset Age Delivery Information Delivery Date Delivery Type Labor Anesthesia Weeks Gestation Incision Type Labor Labor Length Hrs Delivered By Post Complications Tubal Sterilization Discharge Date Comments 1 Discharge Information Feeding Method Contraceptive Method Maternal HG B and HCT Levels Ob Episode Information Episode Created Date Number of Fetuses Patient Bloodtype Patient rh Status Prepregnancy Weight lbs Domestic Partner Domestic Partner Phone Father Name Borough Coordinator Status 07/04/19 22 1 CLOSED Fetus Data First Name Last Name Admitted to NICU Weight (g) Sex Living Outcome Pediatric Complications Fetus ID Race Codes Race Delivery Type 3883.65 4704 M Full Term [id number] Juan Carlos Calculation Initial Juan Carlos Date Initial Exam Date Initial Exam Provider Initial Ultrasound Date Last Menstrual Period Date Ultra Sound Weeks Gestation 0 Eighteen To Twenty Week Juan Carlos Update Ultra Sound Date Fundal Height At Umbil Quickening Date Ultra Sound Latest Weeks Gestation Final Juan Carlos Confirmed By Final Juan Carlos Confirmed Date Final Juan Carlos Date Ultra Sound Latest Days Gestation 0 0 Menstrual History Last Menstrual Date Menses Monthly On Bcp Conception Prior Menses Frequency Hcg Plus Date Menarche Onset Age Delivery Information Delivery Date Delivery Type Labor Anesthesia Weeks Gestation Incision Type Labor Labor Length Hrs Delivered By Post Complications Tubal Sterilization Discharge Date Comments 4 Discharge Information Feeding Method Contraceptive Method Maternal HG B and HCT Levels
--- OUTSIDE RECORDS SUMMARY | 2024-06-22 02:15 | XMS_ITS | Patient Health Summary ---
Author Organization [facility] Address [address] [place] [address] Care Team Providers Care Experimental Display Builder Name Role Phone Beatriz Savage MD Primary Care Provider [phone] Note from [facility],non-owned Affiliates and Associated Physician Practices is amultiple site organization consisting of ambulatory clinics and hospital sitesin [place], [place] and [place]. This disclosure is being madepursuant to the Care Everywhere program and may not contain all information available regarding this patient. Last updated 18.[facility] Allergies No known active allergies Medications * Be aware that medications may not be up to date on this document. Alwaysverify current medications with the patient. * Prenat w/o T-[id number]-DHA (+DHA) 27-1 & 250 MG MISC(Started 03/28/2015) Take 1 Tab by mouth once daily 11 refills left * albuterol HFA (PROVENTIL;VENTOLIN;PROAIR) 108 (90 BASE) MCG/ACT inhaler (Started 03/28/2015) Inhale 2 Puffs by mouth every 6 hours as needed 5 refills left * ferrous sulfate 325 (65 FE) MG tablet(Started 10/27/2015) Take 1 Tab by mouth daily with breakfast * sertraline (Zoloft) 100 MG tablet Take 1 (one) tablet by mouth once daily * predniSONE (Deltasone) 20 MG tablet(Started 06/06/2022) Take 1 (one) tablet by mouth as directed * penicillin v potassium (Veetids) 500 MG tablet(Started 05/27/2022) Take 1 (one) tablet by mouth 2 times daily * ondansetron (Zofran) 8 MG tablet Take 1 (one) tablet by mouth as directed * meclizine (Antivert) 25 MG tablet Take 1 (one) tablet by mouth 3 times daily as needed * Vienva 0.1-20 MG-MCG tablet(Started 10/03/2022) Take 1 (one) tablet by mouth once daily * fluticasone propionate (Flonase) 50 MCG/ACT nasal spray Bryan 2 (two) sprays into each nostril as needed * norgestimate-ethinyl estradiol (Sprintec 28) 0.25-35 MG-MCG tablet Take 1 (one) tablet by mouth once daily * Etonogestrel (NEXPLANON SC) Inject 1 Each subcutaneously as directed * acetaminophen (Tylenol) 500 MG tablet(Started 12/17/2022) Take 2 (two) tablets by mouth every 6 hours as needed for Pain or Headache Maximum allowable Acetaminophen amount = 4 Grams (4000 mg) / 24 hours. * ibuprofen (Motrin) 600 MG tablet(Started 12/17/2022) Take 1 (one) tablet by mouth every 6 hours as needed for Pain * oxyCODONE, immediate release, (Roxicodone) 5 MG tablet(Started 12/17/2022) Take 1 (one) tablet by mouth every 6 hours as needed for Pain * sertraline (Zoloft) 50 MG tablet(Started 06/08/2024) Take 1 (one) tablet by mouth once daily * hydrOXYzine HCl (Atarax) 10 MG tablet Take 1 (one) tablet by mouth 4 times daily as needed for Itching * omeprazole (PriLOSEC) 40 MG capsule(Started 06/14/2024) Take 1 (one) capsule by mouth once daily Active Problems Problem Noted Date Diagnosed Date Encounter for surveillance of injectable contrac eptive 03/05/2016 Asthma 01/20/2014 History of depression 01/20/2014 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 Scoliosis (and kyphoscoliosis), idiopathic 04/25 Family history of congenital anomalies Threatened labor at term Resolved Problems Problem Noted Date Diagnosed Date Resolved Date 10/16/2015 12/09/2022 34 weeks gestation of 09/19/2015 12/09/2022 Screening, , for ma lformation by ultrasound 06/16/2015 07/12/2015 Chronic hypertension 04/17/2015 016 Asthma affecting , antepartum 04/17/2015 12/12/2015 High-risk 03/28/2015 12/10/19 23 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 (FLUCELVAX TRIVALENT; 6MO+), 0.5 ML (CCIIV3)(Given 02/07/2014) * INFLUENZA VACCINE, QUADR. (FLUZONE; FLULAVAL; FLUARIX; AFLURIA QUADRIVALENT; 6MO+), 0.5 ML (IIV4)(Given 01/14/2017) * TDAP (7yrs+)(Given 03/21/2014) Social History Tobacco Use Types Packs/Day Years Used Date Smoking Tobacco: Never Smokeless Tobacco: Never Alcohol Use Standard Drinks/Week Comments No 0 (1 standard drink = 0.6 oz pur e alcohol) AUDIT-C Answer Date Recorded Q1: How often do you have a drink containing alcohol? Never 12/17/2022 Q2: How many drinks containi ng alcohol do you have on a typical day when you are drinking? Patient does not drink Q3: How often do you have si x or more drinks on one occasion? Never 12/17/2022 Sex and Gender Information Value Date Recorded Sex Assigned at Not on file Gender Identity Not on file Sexual Orientation Not on file Last Filed Vital Signs Vital Sign Reading Time Taken Comments Blood Pressure 126/82 06/14/2024 9:07 AM MANAGER ELECTRICAL Pulse 71 06/14/2024 9:07 AM MANAGER ELECTRICAL Temperature 36.4 C (97.5 F) 12/17/2022 3:47 PM CDT Respiratory Rate 16 12/17/2022 5:01 PM CDT Oxygen Saturation 95% 12/17/2022 5:01 PM CDT Inhaled Oxygen Concentration 100% 04/27/2010 7 :00 AM MANAGER ELECTRICAL Weight 109.3 kg (241 lb) 06/14/2024 9:07 AM MANAGER ELECTRICAL Height 154.9 cm (5' 1 ) 06/14/2024 9:07 AM MANAGER ELECTRICAL Body Mass Index 45.54 06/14/2024 9:07 AM MANAGER ELECTRICAL Procedures * PATHOLOGY TISSUE(Performed 12/17/2022) Performed for Recurrent acute tonsillitis, Tonsillar hypertrophy * ENDOTRACHEAL TUBE NOTE(Performed 12/17/2022) * TONSILLECTOMY(Performed 12/17/2022) Performed for Recurrent acute tonsillitis, Tonsillar hypertrophy * HCG URINE QUALITATIVE - POCT (IP) INTERFACED(Performed 12/17/2022) * HCG URINE QUAL POCT NOTIFICATION(Performed 12/17/2022) Performed for Pre-op evaluation * TYPE + SCREEN PANEL(Performed 12/13/2022) Performed for Pre-op evaluation * BASIC METABOLIC PANEL (CALCIUM TOTAL)(Performed 12/13/2022) Performed for Pre-op evaluation * CBC W/O DIFFERENTIAL(Performed 12/13/2022) Performed for Pre-op evaluation * SONOGRAM - COMPLETE(Performed 07/03/2020) Performed for Date of last menstrual period (LMP) unknown, , unspecified gestational age (HCC) * TRICHOMONAS RAPID TEST(Performed 06/04/2020) * CHLAMYDIA + GC AMPLIFIED PROBE(Performed 06/04/2020) * HCG URINE QUALITATIVE - POINT OF CARE(Performed 12/12/2015) * IMAGING/RADIOLOGY/XRAY RESULTS ORDER(Performed 10/28/2015) * HGB HCT PANEL(Performed 10/26/2015) * TYPE + SCREEN PANEL(Performed 10/25/2015) Performed for Threatened labor at term ([facility]) * CBC W AUTO DIFFERENTIAL(Performed 10/25/2015) Performed for Threatened labor at term (HCC) * IMAGING/RADIOLOGY/XRAY RESULTS ORDER(Performed 10/25/2015) * GLUCOSE PROTEIN KETONE URINE - POINT OF CAR(Performed 10/24/2015) * GLUCOSE PROTEIN KETONE URINE - POINT OF CAR(Performed 10/10/2015) * CULTURE STREP B(Performed 10/03/2015) * GLUCOSE PROTEIN KETONE URINE - POINT OF CAR(Performed 10/03/2015) * SONOGRAM - COMPLETE(Performed 09/19/2015) * GLUCOSE PROTEIN KETONE URINE - POINT OF CAR(Performed 09/19/2015) * RPR(Performed 09/05/2015) * CBC W AUTO DIFFERENTIAL(Performed 09/05/2015) * GLUCOSE CHALLENGE(Performed 09/05/2015) * GLUCOSE PROTEIN KETONE URINE - POINT OF CAR(Performed 09/05/2015) * GLUCOSE PROTEIN KETONE URINE - POINT OF CAR(Performed 08/01/2015) * ECHO CONSULT - (Performed 07/18/2015) Performed for Encounter for supervision of other normal , first trimester ([facility]) * URINE MICROSCOPIC ONLY REFLEX TO CULTURE(Performed 07/06/2015) Performed for ([facility]) * URINALYSIS REFLEX MICROSCOPIC REFLEX CULTURE(Performed 07/06/2015) Performed for ([facility]) * CULTURE URINE(Performed 07/06/2015) Performed for ([facility]) * GLUCOSE PROTEIN KETONE URINE - POINT OF CAR(Performed 06/16/2015) * SONOGRAM - COMPLETE(Performed 06/16/2015) Performed for Encounter for supervision of other normal , first trimester ([facility]) * ALPHA FETOPROTEIN BLOOD MATERNAL QUAD PANEL(Performed 05/19/2015) * GLUCOSE CHALLENGE(Performed 05/19/2015) * GLUCOSE PROTEIN KETONE URINE - POINT OF CAR(Performed 05/19/2015) * SONOGRAM - COMPLETE(Performed 04/04/2015) * TYPE + SCREEN PANEL(Performed 03/28/2015) * TSH REFLEX FREE T4(Performed 03/28/2015) * RUBELLA ANTIBODY IGG TITER(Performed 03/28/2015) * RPR(Performed 03/28/2015) * CYTOLOGY CERVICAL/VAG PAP SCREEN THIN PREP(Performed 03/28/2015) * RUBELLA IMMUNE STATUS(Performed 03/28/2015) * HEPATITIS B SURFACE ANTIGEN W RFLX CONFIRMATION(Performed 03/28/2015) * CBC W AUTO DIFFERENTIAL(Performed 03/28/2015) * URINALYSIS REFLEX TO MICROSCOPIC NO CULTURE(Performed 03/28/2015) * OBSTETRIC PANEL (BEAKER)(Performed 03/28/2015) * CHLAMYDIA + GC AMPLIFIED PROBE(Performed 03/28/2015) * CULTURE URINE(Performed 03/28/2015) * HIV-1 HIV-2 ANTIBODY + HIV P24 AG PANEL(Performed 03/28/2015) * HCG URINE QUALITATIVE - POINT OF CARE(Performed 03/28/2015) * GLUCOSE PROTEIN KETONE URINE - POINT OF CAR(Performed 03/28/2015) * IMAGING/RADIOLOGY/XRAY RESULTS ORDER(Performed 09/07/2014) * IMAGING/RADIOLOGY/XRAY RESULTS ORDER(Performed 09/07/2014) * IMAGING/RADIOLOGY/XRAY RESULTS ORDER(Performed 09/07/2014) * HCG URINE QUALITATIVE - POCT (IP) [facility](Performed 07/28/2014) * HCG URINE QUALITATIVE - POINT OF CARE(Performed 06/20/2014) * GLUCOSE PROTEIN KETONE URINE - POINT OF CAR(Performed 06/20/2014) * IMAGING/RADIOLOGY/XRAY RESULTS ORDER(Performed 05/14/2014) * LAB RESULTS ORDER(Performed 05/13/2014) * IMAGING/RADIOLOGY/XRAY RESULTS ORDER(Performed 05/10/2014) * CBC W AUTO DIFFERENTIAL(Performed 05/10/2014) * BLOOD GASES CORD KEARA (ISTAT)(Performed 05/09/2014) * PATHOLOGY TISSUE EXAM (STL)(Performed 05/09/2014) * BLOOD GASES CORD ART (ISTAT)(Performed 05/09/2014) * TYPE + SCREEN PANEL(Performed 05/09/2014) * CBC W AUTO DIFFERENTIAL(Performed 05/09/2014) * GLUCOSE PROTEIN KETONE URINE - POINT OF CAR(Performed 05/07/2014) * IMAGING/RADIOLOGY/XRAY RESULTS ORDER(Performed 05/05/2014) * GLUCOSE PROTEIN KETONE URINE - POINT OF CAR(Performed 05/02/2014) * GLUCOSE PROTEIN KETONE URINE - POINT OF CAR(Performed 04/25/2014) * GLUCOSE PROTEIN KETONE URINE - POINT OF CAR(Performed 04/22/2014) * GLUCOSE PROTEIN KETONE URINE - POINT OF CAR(Performed 04/18/2014) * GLUCOSE PROTEIN KETONE URINE - POINT OF CAR(Performed 04/11/2014) * IMAGING/RADIOLOGY/XRAY RESULTS ORDER(Performed 04/07/2014) * GLUCOSE PROTEIN KETONE URINE - POINT OF CAR(Performed 04/04/2014) * SONOGRAM - COMPLETE(Performed 04/04/2014) * CULTURE STREP B(Performed 03/28/2014) Performed for Supervision of high-risk of young primigravida, third trimester * URINALYSIS REFLEX MICROSCOPIC REFLEX CULTURE(Performed 03/28/2014) Performed for Supervision of high-risk of young primigravida, third trimester * CULTURE URINE(Performed 03/28/2014) Performed for Supervision of high-risk of young primigravida, third trimester * GLUCOSE PROTEIN KETONE URINE - POINT OF CAR(Performed 03/21/2014) * US THYROID(Performed 03/07/2014) Performed for Supervision of high-risk of young primigravida, third trimester, Thyroid mass * GLUCOSE PROTEIN KETONE URINE - POINT OF CAR(Performed 03/07/2014) * SONOGRAM - COMPLETE(Performed 03/07/2014) * URINALYSIS REFLEX MICROSCOPIC REFLEX CULTURE(Performed 03/04/2014) Performed for Supervision of high-risk of young primigravida, third trimester * GLUCOSE PROTEIN KETONE URINE - POINT OF CAR(Performed 02/21/2014) * PROTEIN URINE TIMED QUANTITATIVE(Performed 02/07/2014) Performed for Chronic hypertension in , second trimester * PROTEIN CREATININE RATIO URINE TIMED PNL(Performed 02/07/2014) Performed for Chronic hypertension in , second trimester * T4 FREE(Performed 02/07/2014) * TSH(Performed 02/07/2014) * COMPREHENSIVE METABOLIC PANEL(Performed 02/07/2014) * CREATININE CLEARANCE URINE TIMED + BLOOD(Performed 02/07/2014) Performed for Chronic hypertension in , second trimester * GLUCOSE PROTEIN KETONE URINE - POINT OF CAR(Performed 02/07/2014) * SONOGRAM - COMPLETE(Performed 02/07/2014) Performed for Low lying placenta with hemorrhage, antepartum, second trimester * GLUCOSE PROTEIN KETONE URINE - POINT OF CAR(Performed 01/26/2014) * RPR(Performed 01/24/2014) * CBC W AUTO DIFFERENTIAL(Performed 01/24/2014) * COMPREHENSIVE METABOLIC PANEL(Performed 01/24/2014) * GLUCOSE CHALLENGE(Performed 01/24/2014) * GLUCOSE PROTEIN KETONE URINE - POINT OF CAR(Performed 01/24/2014) * URINE MICROSCOPIC ONLY(Performed 11/10/2013) * URINALYSIS REFLEX TO MICROSCOPIC NO CULTURE(Performed 11/10/2013) * MRI LUMBAR SPINE WWO CONTRAST(Performed 04/21/2012) Performed for Scoliosis (and kyphoscoliosis), idiopathic * XR SCOLIOSIS 1VW(Performed 03/27/2012) Performed for Scoliosis (and kyphoscoliosis), idiopathic * XR THORACIC SPINE 3VW(Performed 05/10/2011) Performed for Back pain, Scoliosis (and kyphoscoliosis), idiopathic * XR LUMBAR SPINE 2 OR 3VW(Performed 05/10/2011) Performed for Back pain, Scoliosis (and kyphoscoliosis), idiopathic * URINALYSIS REFLEX TO MICROSCOPIC NO CULTURE(Performed 05/10/2011) * HCG URINE QUALITATIVE(Performed 05/10/2011) * XR SCOLIOSIS 1VW(Performed 11/26/2010) Performed for Scoliosis (and kyphoscoliosis), idiopathic * XR SCOLIOSIS 1VW(Performed 05/14/2010) Performed for Scoliosis (and kyphoscoliosis), idiopathic * CT ANGIO CHEST(Performed 05/01/2010) Performed for Chest pain * HCG URINE QUALITATIVE(Performed 04/30/2010) * DIFFERENTIAL MANUAL(Performed 04/30/2010) * CBC W AUTO DIFFERENTIAL(Performed 04/30/2010) * PT PTT PANEL(Performed 04/30/2010) * BASIC METABOLIC PANEL (CALCIUM TOTAL)(Performed 04/30/2010) * D-DIMER(Performed 04/30/2010) * URINALYSIS REFLEX TO MICROSCOPIC NO CULTURE(Performed 04/30/2010) * CULTURE URINE(Performed 04/30/2010) * XR CHEST 2VW(Performed 04/30/2010) Performed for Chest pain * XR SCOLIOSIS 1VW(Performed 04/27/2010) Performed for Scoliosis (and kyphoscoliosis), idiopathic * HGB HCT PANEL(Performed 04/25/2010) * XR THORACOLUMBAR SPINE 2VW(Performed 04/24/2010) Performed for Scoliosis * BLOOD GASES ART + GLUC K CA+ PANEL(Performed 04/24/2010) * TYPE SCRN XMATCH RBC X2(Performed 04/24/2010) Performed for Scoliosis * HCG URINE QUALITATIVE - POINT OF CARE(Performed 04/24/2010) * TYPE + SCREEN PANEL(Performed 04/16/2010) * DIFFERENTIAL MANUAL(Performed 04/16/2010) * PTT(Performed 04/16/2010) * PT-INR(Performed 04/16/2010) * PHOSPHORUS BLOOD(Performed 04/16/2010) * MAGNESIUM BLOOD(Performed 04/16/2010) * BASIC METABOLIC PANEL (CALCIUM TOTAL)(Performed 04/16/2010) * CBC W AUTO DIFFERENTIAL(Performed 04/16/2010) * URINALYSIS REFLEX MICROSCOPIC REFLEX CULTURE(Performed 04/16/2010) * XR THORACIC SPINE BENDING VIEWS(Performed 04/16/2010) Performed for Scoliosis * IMAGING/RADIOLOGY/XRAY RESULTS ORDER(Performed 03/21/2010) * XR SCOLIOSIS 1VW(Performed 03/05/2010) Performed for Back pain * VITAMIN D 25-HYDROXY(Performed 11/27/2009) Performed for Joint Pain * ERYTHROCYTE SEDIMENTATION RATE(Performed 11/27/2009) Performed for Joint Pain * COMPREHENSIVE METABOLIC PANEL(Performed 11/27/2009) Performed for Joint Pain * CBC W AUTO DIFFERENTIAL(Performed 11/27/2009) Performed for Joint Pain * C-REACTIVE PROTEIN(Performed 11/27/2009) Performed for Joint Pain * URINALYSIS REFLEX MICROSCOPIC REFLEX CULTURE(Performed 11/27/2009) Performed for Joint Pain * XR TIBIA FIBULA LEFT 2VW(Performed 06/05/2009) Performed for Joint Pain-L/Leg * URINALYSIS REFLEX TO MICROSCOPIC NO CULTURE(Performed 06/05/2009) Performed for Joint Pain-L/Leg * HLA TYPING B27(Performed 06/05/2009) Performed for Joint Pain-L/Leg * CYCLIC CITRULLINATED PEPTIDE(CCP) AB IGG(Performed 06/05/2009) Performed for Joint Pain-L/Leg * DIANA BLOOD TITER(Performed 06/05/2009) Performed for Joint Pain-L/Leg * DIANA BLOOD SCREEN W/REFLEX TITER(Performed 06/05/2009) Performed for Joint Pain-L/Leg * SHOEMAKER (SM) ANTIBODY DAQUAN(Performed 06/05/2009) Performed for Joint Pain-L/Leg * SS-B (SJOGREN'S) ANTIBODY(Performed 06/05/2009) Performed for Joint Pain-L/Leg * SS-A (SJOGREN'S) ANTIBODY(Performed 06/05/2009) Performed for Joint Pain-L/Leg * GAS LINE INSTALLER SUPERVISOR ANTIBODY(Performed 06/05/2009) Performed for Joint Pain-L/Leg * SCLERODERMA 70 (SCL) ANTIBODY(Performed 06/05/2009) Performed for Joint Pain-L/Leg * DNA ANTIBODY DOUBLE STRANDED(Performed 06/05/2009) Performed for Joint Pain-L/Leg * ALDOLASE(Performed 06/05/2009) Performed for Joint Pain-L/Leg * VITAMIN D 25-HYDROXY(Performed 06/05/2009) Performed for Joint Pain-L/Leg * RHEUMATOID FACTOR BLOOD QUANTITATIVE(Performed 06/05/2009) Performed for Joint Pain-L/Leg * TSH(Performed 06/05/2009) Performed for Joint Pain-L/Leg * ERYTHROCYTE SEDIMENTATION RATE(Performed 06/05/2009) Performed for Joint Pain-L/Leg * CBC W AUTO DIFFERENTIAL(Performed 06/05/2009) Performed for Joint Pain-L/Leg * C-REACTIVE PROTEIN(Performed 06/05/2009) Performed for Joint Pain-L/Leg * COMPREHENSIVE METABOLIC PANEL(Performed 06/05/2009) Performed for Joint Pain-L/Leg * CK BLOOD(Performed 06/05/2009) Performed for Joint Pain-L/Leg Results * PATHOLOGY TISSUE (12/17/2022 2:25 PM CDT) Case Report Surgical Pathology Report Case: [id number] Authorizing Provider: Gerardo Rodriguez MD Collected: 12/17/2022 02:25 PM Ordering Location: [facility] OP Received: 12/17/2022 03:25 PM Pathologist: Anisa Lombardi MD Specimens: A) - Tonsil, Right, Right tonsil B) - Tonsil, Left, Left tonsil 12/18/2022 10:29 AM [facility] Final Diagnosis Tonsil, right, tonsillectomy (A): - Reactive follicular hyperplasia Tonsil, left, tonsillectomy (B): - Reactive follicular hyperplasia 12/18/2022 10:29 AM [facility] Microscopic Description and Comment Microscopic examination substantiates the final diagnosis. 12/18/2022 10:29 AM [facility] Clinical History The patient is a 27 year old woman with recurrent tonsillitis. 12/18/2022 10:29 AM [facility] Gross Description The requisition and specimen(s) are identified with the patient's name Hannah Martinez. Received in formalin, specimen A , is a 4 g, cerebriform, 3 x 2 x 1 cm tonsil with cryptic cut surface. Human Factors Ergonomist sections submitted in 1 cassette. Received in formalin labeled B are 4 g of pink-mobley cerebriform tissue ranging from 0.5 to 2.5 x 2.0 x 0.8 cm which are sectioned to reveal cryptic cut surfaces. Human Factors Ergonomist tissue submitted in 1 cassette. /ml 12/18/2022 10:29 AM [facility] Pathologist Location at [facility] 12/18/2022 10:29 AM CDT [facility] Disclaimer The performance characteristics of all immunohistochemical and indirect immunofluorescence stains (if any) cited in this report were determined by the Histopathology Laboratory of [facility]. Some of these tests were developed by our own laboratory and have not been cleared or approved by the US Food and Drug Administration. The FDA does not require this test to go through premarket FDA review. These tests are used for clinical purposes. They should not be regarded as investigational or for research. This laboratory is certified under the Clinical Laboratory Improvement Amendments (CLIA) as qualified to perform high complexity clinical laboratory testing. This case has been personally reviewed and interpreted by the attending (teaching) pathologist. 12/18/2022 10:29 AM CDT [facility] Embedded Images 12/18/2022 10:29 AM T [facility] Resection without Tumor (Tonsil, Right) 12/17/2022 2:25 PM CDT 12/17/2022 3:25 PM CDT Comment:Pre-op diagnosis: RECURRENT ACUTE TONSILLITIS; TONSILLAR HYPERTROPHY Resection without Tumor (Tonsil, Left) 12/17/2022 2:25 PM CDT 12/17/2022 3:25 PM CDT Comment:Pre-op diagnosis: RECURRENT ACUTE TONSILLITIS; TONSILLAR HYPERTROPHY Gerardo Rodriguez MD LAB - PATHOLOGY/CY TOLOGY ORDERABLES Performing Organization Address [facility]/State/[facility] Phone Number [facility] [address] [phone] * ETT LINE PERFORMABLE (12/17/2022 1:32 PM CDT) Narrative Shonna Nassar MD - 12/17/2022 1:32 PM CDT Shonna Nassar MD 12/17/2022 1:32 PM Endotracheal Tube Placement: Patient Location: OR. Intubation Event Date/Time: 12/17/2022 1:21 PM Procedure: intubation (38905). Procedure Section: Sedation: under general anesthesia. Indications for Airway Management: anesthesia Procedure pretreatments used? No Induction: standard IV Patient Position: sniffing Mask Ventilation: easy. Blade Type: Agus Blade Size: 3 Laryngoscopy View: grade 1 (full cords) Intubation Adjuncts: stylet and cricoid pressure Tube: endotracheal tube Placement: oral Tube type: cuff - inflated Tube Size (MM): 7 Depth of Insertion (CM): 22 Measured From: teeth Cuff volume (mL): 10 Cuff Inflated With: air Number of Attempts: 1. Placement Verified By: direct visualization, bilateral breath sounds, CO2 monitor and chest auscultation Tube secured with: adhesive tape. Dentition unchanged? Yes Difficult Airway? No. Procedure Start Time: 12/17/2022 1:21 PM. Procedure End Time: 12/17/2022 1:22 PM. Procedure Total Time: 1 minutes. Staff Section Anesthesia Provider: Shonna Nassar MD, Performed the procedure Provider #1: Ced Da Silva MD. Provider #2: Kamron Joaquin MD. Kamron Joaquin MD GENERAL ANESTHESIA ORDERABLES * HCG URINE QUALITATIVE - POCT (IP) INTERFACED (12/17/2022 12:25 PM CDT) HCG Qual Urine Negative Negative 12/17/2022 12:32 PM CDT [facility] Urine URINE / Unknown 12/17/2022 1 2:25 PM CDT 12/17/2022 12:32 PM CDT Gerardo Rodriguez MD LAB - POINT OF CAR E ORDERABLES Performing Organization Address City/[facility]/ZIP Co de Phone Number [id number] [place] [address], [facility] [phone] * HCG URINE QUAL POCT NOTIFICATION (12/17/2022 12:22 PM CDT) Comment Notification Label Only - See Separate Report 12/17/2022 1:32 PM CDT [facility] Urine URINE / Unknown 12/17/2022 1 2:22 PM CDT 12/17/2022 12:22 PM CDT Gerardo Rodriguez MD LAB - URINALYSIS O RDERABLES [facility] [address] [place] [address], [facility] [phone] * TYPE + SCREEN PANEL (12/13/2022 1:01 PM CDT) Only the most recent of5 resultswithin the time period is included. Pathologist [facility] Antibody Screen NEG 2:20 PM CDT [facility] ABO Rh B POS 12/13/2022 2:20 PM CDT [facility] Blood Bank BLOOD SPECIMEN / Unknown Lab Venipuncture / Unknown 12/13/2022 1:01 PM CDT 12/13/2022 1:39 PM CDT Harshal Pena POST CLOSING SPECIALIST-SPRINKLER FITTER LAB - BLOOD B ANK ORDERABLES [facility] [address] [place] [address], [facility] [phone] * CBC W/O DIFFERENTIAL (12/13/2022 1:01 PM CDT) [facility] WBC 9.1 3.5 - 10.5 10 3/uL 12/13/2022 1:38 PM CDT [facility] RBC 5.15 3.80 - 5.20 10 6/uL 12/13/2022 1:38 PM CDT [facility] Hemoglobin 13.8 12.0 - 15.6 g/dL 12/13/2022 1:38 PM T [facility] Hematocrit 42.8 35.0 - 45.0 % 12/13/2022 1:38 PM CDT [facility] MCV 83.1 80.7 - 98.3 fL 12/13/2022 1:38 PM CDT [facility] MCH 26.8 26.7 - 34.0 pg 12/13/2022 1:38 PM CDT [facility] MCHC 32.2 30.8 - 35.9 g/dL 12/13/2022 1:38 PM CDT [facility] RDW-SD 40.9 36.0 - 50.0 fL 12/13/2022 1:38 PM CDT [facility] RDW-CV 13.5 11.2 - 14.8 % 12/13/2022 1:38 PM [facility] Platelet Count 335 150 - 400 10 3/uL 12/13/2022 1:38 PM [facility] MPV 10.4 9.4 - 12.9 fL 12/13/2022 1:38 PM [facility] nRBC Absolute 0.00 0 10 3/uL 12/13/2022 1:38 PM [facility] nRBC Auto 0.0 0 /100 WBC 12/13/2022 1:38 PM [facility] Blood BLOOD SPECIMEN / Unknown Lab Venipuncture / Unknown 12/13/2022 1:01 PM CDT 12/13/2022 1:34 PM CDT [facility] - HEMATOL OGY ORDERABLES [facility] [address] [place] [id number], [facility] [phone] * BASIC METABOLIC PANEL (CALCIUM TOTAL) (12/13/2022 1:01 PM CDT) Only the most recent of3 resultswithin the time period is included. BUN 10 7 - 26 mg/dL 12/13/2022 2:04 PM [facility] Creatinine 0.67 0.56 - 0.96 mg/dL 12/13/2022 2:04 PM [facility] Sodium 143 136 - 145 mmol/L 12/13/2022 2:04 PM [facility] Potassium 4.5 3.5 - 4.5 mmol/L 12/13/2022 2:04 PM [facility] Chloride 107 98 - 107 mmol/L 12/13/2022 2:04 PM [facility] CO2 27 22 - 29 mmol/L 12/13/2022 2:04 PM [facility] Glucose 84 70 - 115 mg/dL 12/13/2022 2:04 PM [facility] Calcium 10.1 8.4 - 10.2 mg/dL 12/13/2022 2:04 PM CDT [facility] Anion Gap 14 8 - 18 12/13/2022 2:04 PM CDT [facility] BUN/Creatinine Ratio 15 7 - 23 12/13/2022 2:04 PM CDT [facility] Osmolality Calculated 294 270 - 300 mOsm/kg 12/13/2022 2:04 PM CDT [facility] eGFR by CKD-EPI >90 >=90 mL/min/1.7 3 m2 12/13/2022 2:04 PM T [facility] Blood BLOOD SPECIMEN / Unknown Lab Venipuncture / Unknown 12/13/2022 1:01 PM CDT 12/13/2022 1:34 PM CDT Harshal Pena APRN-SPRINKLER FITTER LAB - DIAMOND SIZER AND GRADER RY ORDERABLES [facility] [address] [place] [address], [facility] [phone] * SONOGRAM - COMPLETE (07/03/2020 9:48 AM MANAGER ELECTRICAL) Only the most recent of7 resultswithin the time period is included. Anatomical Region Laterality Modality Other 07/03/2020 9:48 AM MANAGER ELECTRICAL Narrative 07/03/2020 10:16 AM MANAGER ELECTRICAL [facility] PHONE: FAX: Pat. Name: HANNAH MARTINEZ Karen Connelly. No: [id number] Study Date: 07/03/2020 9:48am , Age: 03 1995, 24 Pregnancies: 3, Para 2 Height: 61 in Weight: 225 lb LMP: Unknown GA by US: 11w5d MIKI: 01/17/2021 GA Selected: 11w5d (Sonographic) MIKI: 01/17/2021 Referring MD: Fiona Savage MD Abstract Searcher: Rivka Terry RDMS CPT4: 89021 BMI: 42.51 Hist/Ind: Dating (Unknown LMP) Class III obesity History of hypertension History of spinal fusion Asthma MEASUREMENTS & AGE GROWTH EVALUATION Measurement GA Range Srce %for GA Ratios ----- ---- ------- CRL 5.0 cm 11w5d ([id number]) Hadl CRL 50% GA for sonogram 11w5d ([id number]) based on (CRL) Avg Heart Rate: 161 bpm EVAL, PLACENTA Location: intrauterine Gestational Sac: normal Yolk Sac: not seen Embryo: visualized Heart Rate: 161 bpm Anatomy!Seen!Not Seen!Comments Myometrium ! x ! ! Right Ovary ! ! x ! Left Ovary ! x ! ! Cul de sac ! x ! ! Calvarium* ! x ! ! Midline Falx*! ! x ! 4th Ventricle! ! x ! Lateral Ventr! ! x ! Choroid Plexu! ! x ! Nasal Bone* ! ! x ! Neck/Dorsum* ! ! !< 2 mm 4 CH* ! ! x ! Abdominal Cor! ! x ! Diaphragm* ! ! x ! Spine* ! ! x ! Stomach* ! ! x ! Kidneys* ! ! x ! Bladder* ! ! x ! Upper Extremi! x ! ! Lower Extremi! x ! ! CLINICAL SUMMARY Study Number: 1 IMPRESSION: 1) Bradley gestation, 11w5d by today's CRL measurement 2) No abnormalities were detected on first trimester anatomic survey RECOMMEND: Await noninvasive testing (NIPT) results. If those results predict a low risk of aneuploidy, schedule detailed anatomic survey around 20 weeks. Thank you for allowing us the opportunity to care for your patient. Jen Torres MD <Electronic Signature> 07/03/2020 10:16am Ordering Provider Unlisted Vi ORDERA BLES * CHLAMYDIA + GC AMPLIFIED PROBE (STL) (06/04/2020 9:29 PM MANAGER ELECTRICAL) Pathologist [facility] Chlamydia Amplified Probe Negative Negative 06/05/2020 10:51 AM MANAGER ELECTRICAL [facility] GC Amplified Probe Negative Negative 06/05/2020 10:51 AM MANAGER ELECTRICAL [facility] Microbiology PART OF UTERINE CERVIX / Unknown Collection / Unknown 06/04/2020 9:29 PM MANAGER ELECTRICAL 06/04/2020 9:34 PM MANAGER ELECTRICAL Narrative [facility] - 06/05/2020 10:51 AM MANAGER ELECTRICAL Results based on detection/no detection of ribosomal RNA by amplified method. Tita Lares MD LAB - MICROBIOLO GY ORDERABLES [facility] [address] [place], [place] [address], [facility] [phone] * TRICHOMONAS RAPID TEST (06/04/2020 9:29 PM MANAGER ELECTRICAL) Pathologist [facility] Trichomonas Rapid Test Negative Negative 06/04/2020 9:47 PM MANAGER ELECTRICAL [facility] Microbiology VAGINAL SWAB / Unknown Collection / Unknown 06/04/2020 9:29 PM MANAGER ELECTRICAL 06/04/2020 9:33 PM MANAGER ELECTRICAL Ttia Lares MD LAB - MICROBIOLO GY ORDERABLES Performing Organization Address City/[facility]/ZIP Co de Phone Number [facility] [address] [place] [address] * HCG URINE QUALITATIVE - POINT OF CARE (IP) (12/12/2015 10:34 AM CDT) Only the most recent of4 resultswithin the time period is included. [facility] HCG Qual Urine Negative Negative [facility] QC Verified Yes Yes [facility] POC T TESTING Urine specimen (specimen) URINE / Unknown 12/12/2015 10:34 AM CDT Elena Chau MD LAB - POINT OF CARE ORDERABLES Performing Organization Address [facility] Co de Phone Number [facility] [address] [place] [address] * IMAGING/RADIOLOGY/XRAY RESULTS ORDER (10/28/2015 11:39 PM CDT) Only the most recent of10 resultswithin the time period is included. Anatomical Region Laterality Modality Other Narrative 10/28/2015 11:39 PM CDT Ordered by an unspecified provider. Scanned Document IMAGING * (ABNORMAL) HGB HCT PANEL (10/26/2015 5:52 AM CDT) Only the most recent of2 resultswithin the time period is included. Pathologist [facility] Hemoglobin 8.8(L) 12.0 - 15.6 gm/dL 10/26/2015 6:13 AM CDT [facility] Hematocrit 28.2(L) 35.9 - 45.5 % 10/26/2015 6:13 AM CDT [facility] Blood BLOOD SPECIMEN / Unknown Lab Venipuncture / Unknown 10/26/2015 5:52 AM CDT 10/26/2015 6:03 AM CDT Zuri Turner MD LAB - HEMATOLOGY ORD ERABLES [facility] [address] [place] [address] * (ABNORMAL) CBC W AUTO DIFFERENTIAL (10/25/2015 5:22 PM CDT) Only the most recent of10 resultswithin the time period is included. [facility] WBC 14.0(H) 4.4 - 10.7 x10E9/L 10/25/2015 5:42 PM CDT [facility] WBC Corrected x10E9/L 10/25/2015 5:42 PM CDT [facility] RBC 4.42 3.80 - 5.20 x10E12/L 10/25/2015 5:42 PM CDT [facility] Hemoglobin 9.9(L) 12.0 - 15.6 gm/dL 10/25/2015 5:42 PM CDT [facility] Hematocrit 31.1(L) 35.9 - 45.5 % 10/25/2015 5:42 PM CDT [facility] MCV 70.4(L) 80.7 - 98.3 fl 10/25/2015 5:42 PM CDT [facility] MCH 22.4(L) 26.7 - 34.0 pg 10/25/2015 5:42 PM CDT [facility] MCHC 31.8 30.8 - 35.9 gm/dL 10/25/2015 5:42 PM CDT [facility] Platelet Count 291 153 - 416 x10E9/L 10/25/2015 5:42 PM CDT [facility] RDW-CV 16.2(H) 12.1 - 14.9 % 10/25/2015 5:42 PM CDT [facility] MPV 10.7 9.4 - 12.9 fl 10/25/2015 5:42 PM CDT [facility] Neutrophils % 77.8(H) 44.0 - 73.0 % 10/25/2015 5:42 PM CDT [facility] Lymphocytes % 16.2(L) 20.0 - 43.0 % 10/25/2015 5:42 PM CDT [facility] Monocytes % 4.7(L) 5.0 - 13.0 % 10/25/2015 5:42 PM CDT [facility] Eosinophils % 0.3 0.0 - 6.0 % 10/25/2015 5:42 PM CDT [facility] Basophils % 0.4 0.0 - 2.0 % 10/25/2015 5:42 PM CDT [facility] Immature Granulocytes 0.6 0 - 1 % 10/25/2015 5:42 PM CDT [facility] Neutrophil Absolute 10.92(H) 2.01 - 7.14 x10E9/L 10/25/2015 5:42 PM CDT [facility] Lymphocytes Absolute 2.27 1.07 - 3.94 x10E9/L 10/25/2015 5:42 PM CDT [facility] Monocytes Absolute 0.66 0.26 - 1.07 x10E9/L 10/25/2015 5:42 PM CDT [facility] Eosinophils Absolute 0.04 0 - 0.47 x10E9/L 10/25/2015 5:42 PM CDT [facility] Basophils Absolute 0.05 0 - 0.08 x10E9/L 10/25/2015 5:42 PM CDT [facility] Immature Granulocytes Absolute 0.08(H) 0.00 - 0.06 x10E9/L 10/25/2015 5:42 PM CDT [facility] nRBC Auto 0 /100 WBC 10/25/2015 5:42 PM CDT [facility] Blood BLOOD SPECIMEN / Unknown Venipuncture / Unknown 10/25/2015 5:22 PM CDT 10/25/2015 5:33 PM CDT Pat Sims POST CLOSING SPECIALIST-SPRINKLER FITTER LAB - HEMATOL OGY ORDERABLES [facility] [address] [place] [address] * GLUCOSE PROTEIN KETONE URINE - POINT OF CAR (10/24/2015 1:49 PM CDT) Only the most recent of23 resultswithin the time period is included. Glucose UA neg Negative [facility] Protein UA trace Negative [facility] Ketone UA neg Negative [facility] QC Verified Yes Yes [facility] POC T TESTING Urine specimen (specimen) URINE / Unknown 10/24/2015 1:49 PM CDT Chanelle Shelton MD LAB - POINT OF CARE ORDERABLES Performing Organization Address [facility]/ZIP Co de Phone Number [facility] [address] [place] [id number] [place] [address] * CULTURE STREP B (10/03/2015 2:19 PM CDT) Only the most recent of2 resultswithin the time period is included. [facility] Culture Negative for Beta Hemolytic Streptococcus Group B JOHN 10/06/2015 9:25 AM CDT [facility] Microbiology MISCELLANEOUS SAMPLES / Unknown Collection / Unknown 10/03/2015 2:19 PM CDT 10/03/2015 2:40 PM CDT Zuri Turner MD LAB - MICROBIOLOGY O RDERABLES Performing Organization Address [facility] Co de Phone Number [facility] [address] [place], [place] [address] [phone] * RPR (09/05/2015 3:12 PM CDT) Only the most recent of3 resultswithin the time period is included. Pathologist [facility] RPR Non Reactive Non Reactive 09/06/2015 8:25 AM CDT [facility] Blood BLOOD SPECIMEN / Unknown Venipuncture / Unknown 09/05/2015 3:12 PM CDT 09/05/2015 3:21 PM CDT Jacki Theodore MD LAB - CHEMISTRY TYRONE RENTERIA Performing Organization Address City/[facility]/ZIP Co de Phone Number [facility] [address] [place] [address] * GLUCOSE CHALLENGE (09/05/2015 3:12 PM CDT) Only the most recent of3 resultswithin the time period is included. Pathologist [facility] Glucose Challenge 92 64 - 140 mg/dL 09/05/2015 4:07 PM CDT [facility] Glucose Challenge Time 1510 09/05/2015 4:07 PM CDT [facility] Blood BLOOD SPECIMEN / Unknown Venipuncture / Unknown 09/05/2015 3:12 PM CDT 09/05/2015 3:21 PM CDT Jacki Theodore MD LAB - CHEMISTRY TYRONE RENTERIA [facility] [address] [place] [address] * ECHO CONSULT - (07/18/2015 10:46 AM MANAGER ELECTRICAL) 07/18/2015 10:4 6 AM MANAGER ELECTRICAL Narrative Procedure Note Reading, No - 07/18/2015 [facility] [place] [phone] Fax Echocardiogram Report Pat.Name: HANNAH MARTINEZ Pat.ID: [id number] St.Date: 07/18/2015 Exam Time: 10:46:00 AM Study Type: Echo Age: 1 1995,19Y Sex: FEMALE Sonogrphr: Susy Agrawal RDCS Pat. Stat.:Outpatient Procedures: 2D Complete, Doppler Complete, Color Flow Visit ID: [id number] SUMMARY: Study Data: GA: 25 weeks. MIKI: 10-30-15 . : 2. Para: 1. Type: Bradley. Lie: Breech. Impression: The echocardiogram was within normal limits; however small atrial septal defects and persistent ductus arteriosus cannot be excluded as findings. Findings: Anatomic Relationships: Left sided cardiac apex (levocardia). There is normal visceral-cardiac situs, and normal segmental cardiac anatomical relationship. Systemic Veins: There is normal systemic venous return. Pulmonary Veins: The visualized pulmonary veins drain normally to the left atrium. Right Atrium: The right atrial size is normal. Left Atrium: The left atrial size is normal. Atrial Septum: Patent foramen ovale is seen with the foramen flap bowing from right to left and color flow is right to left. Tricuspid Valve: The tricuspid valve is structurally normal. The inflow pattern is normal. Tricuspid velocity is within the normal range. There is no regurgitation present. Mitral Valve: The mitral valve is structurally normal. The inflow pattern is normal. Mitral velocity is within the normal range. There is no regurgitation present. Right Ventricle: The cavity size is normal. The wall thickness is normal. The systolic function is normal. RV Outflow Tract: The outflow tract is normal. Left Ventricle: The cavity size is normal. The wall thickness is normal. The systolic function is normal. LV Outflow Tract: The outflow tract is normal. Ventricular Septum: There is no defect with no shunting. Pulmonary Valve: Leaflets exhibited normal mobility. The transpulmonic velocity is within the normal range. There is no regurgitation present. Aortic Valve: Leaflets exhibited normal mobility. The transaortic velocity is within the normal range. There is no regurgitation present. Pulmonary Artery: The MPA is normal with confluent branch pulmonary arteries. Aorta: aortic arch visualized and is without obstruction by 2D, color flow and Doppler. Ductus Arteriosus: The antegrade flow velocity and pattern in the ductal arch is normal. A normal ductus arteriosus is appreciated. Hydrops Assessment: No pericardial effusion. No evidence of ascites or pleural effusion. Rhythm: The rhythm is normal. There is 1:1 AV conduction. Dopplers: Flow in the ductus venosus is normal. The umbilical vein flow pattern is normal. The umbilical artery flow pattern is normal. MEASUREMENTS: DOPPLER Mitral Valve MV pkE 0.3 m/s MV E/A 0.5 MV pkA 0.6 m/s Tricuspid Valve TV pkE 0.4 m/s TV E/A 0.6 TV pkA 0.7 m/s Aortic Valve AVpk; ap 0.9 m/s Heart rate 147 bpm AVpk; ap 3 mmHg Pulmonic Valve PV pkVel 0.6 m/s PV pkPG 2 mmHg HEART CIRC Circumference 84.5 mm Area 566 mm2 HRTC-THRC Value 0.5 THORAX CIRC Circumference 161 mm Area 2060 mm2 Signed 07/18/2015 12:04 PM Rachel Lopez MD Raven Coon MD ECHO ORDERABLES Performing Organization Address City/[facility]/ZIP Co de Phone Number [facility] [address] [place] [address] * (ABNORMAL) URINALYSIS MICROSCOPIC ONLY W/REFLEX CULTURE (07/06/2015 10:03 PM MANAGER ELECTRICAL) WBC UA 10-20(A) 0-2, 2-5 # /hpf 07/06/2015 11:09 PM [facility] Bacteria UA 2+(A) None Seen 07/06/2015 11:09 PM [facility] Epithelial Cell UA 10-20(A) 0-2, 2-5 # /hpf 07/06/2015 11:09 PM [facility] Reflex Status Culture to follow 07/06/2015 11:09 PM [facility] Urine URINE SPECIMEN OBTAINED BY CLEAN CATCH PROCEDURE / Unknown Collection / Unknown 07/06/2015 10:03 PM MANAGER ELECTRICAL 07/06/2015 10:35 PM MANAGER ELECTRICAL Natividad Khan DO LAB - URINALYSIS ORD ERABLES Performing Organization Address City/[facility] Co de Phone Number [facility] [address] [place] [address] * (ABNORMAL) URINALYSIS ROUTINE W/REFLEX TO CULTURE (07/06/2015 10:03 PM MANAGER ELECTRICAL) Only the most recent of5 resultswithin the time period is included. Color UA Angella(A) Straw, Yellow, Dark Yellow 07/06/2015 11:01 PM MANAGER ELECTRICAL [facility] Clarity UA Clear 07/06/2015 11:01 PM [facility] Specific [place] UA >1.030(H) 1.005 - 1.030 07/06/2015 11:01 PM [facility] pH UA 6.0 5.0 - 8.0 pH 07/06/2015 11:01 PM [facility] Protein UA 1+(A) Negative 07/06/2015 11:01 PM [facility] Blood UA Negative Negative 07/06/2015 11:01 PM [facility] Leukocyte UA Negative Negative 07/06/2015 11:01 PM [facility] Nitrite UA Negative Negative 07/06/2015 11:01 PM [facility] Glucose UA Negative Negative 07/06/2015 11:01 PM [facility] Ketone UA 1+(A) Negative 07/06/2015 11:01 PM [facility] Bilirubin UA Negative Negative 07/06/2015 11:01 PM [facility] Urobilinogen UA 1.0 0.1 - 1.0 EU/dL 07/06/2015 11:01 PM [facility] WBC UA Auto 10-20(A) 0-2, 2-5 # /hpf 07/06/2015 11:01 PM [facility] RBC UA Auto 5-10(A) 0-2, 2-5 # /hpf 07/06/2015 11:01 PM [facility] Bacteria UA Auto 1+(A) None seen 07/06/2015 11:01 PM [facility] Hyaline Casts UA Auto Reflex to manual(A) 0 - 2 #/lpf 07/06/2015 11:01 PM [facility] Reflex Status Culture to follow 07/06/2015 11:01 PM [facility] Urine URINE SPECIMEN OBTAINED BY CLEAN CATCH PROCEDURE / Unknown Collection / Unknown 07/06/2015 10:03 PM MANAGER ELECTRICAL 07/06/2015 10:35 PM [facility] Natividad Khan DO LAB - URINALYSIS ORD ERABLES [facility] [address] [place] [address] * CULTURE URINE (07/06/2015 10:03 PM [facility]) Only the most recent of4 resultswithin the time period is included. Culture 10,000-50,000 CFU/mL urogenital george JOHN 07/08/2015 1:55 PM MANAGER ELECTRICAL [facility] Urine URINE SPECIMEN OBTAINED BY CLEAN CATCH PROCEDURE / Unknown Collection / Unknown 07/06/2015 10:03 PM MANAGER ELECTRICAL 07/06/2015 10:35 PM MANAGER ELECTRICAL Natividad Khan DO LAB - MICROBIOLOGY O RDERABLES [facility] [address] [place], [place] [address], [facility] [phone] * ALPHA FETOPROTEIN BLOOD MATERNAL QUAD PANEL (05/19/2015 10:58 AM MANAGER ELECTRICAL) Results Report 05/20/2015 10:06 PM MANAGER ELECTRICAL [facility] ([facility]) Test Results *Screen Negative* 05/20/2015 10:06 PM MANAGER ELECTRICAL [facility] ([facility]) Gestational Age Weeks 16.4 WEEKS 05/20/2015 10:06 PM MANAGER ELECTRICAL [facility] ([facility]) Gestational Age Based On Ultrasound 05/20/2015 10:06 PM MANAGER ELECTRICAL [facility] ([facility]) Comment:16.4 on 05/19/2015 Maternal [age] at MIKI 22.2 YEARS 05/20/2015 10:06 PM MANAGER ELECTRICAL [facility] ([facility]) Race 05/20/2015 10:06 PM MANAGER ELECTRICAL [facility] ([facility]) Weight 204 lbs 05/20/2015 10:06 PM MANAGER ELECTRICAL [facility] ([facility]) Insulin Dependent Diabetes No 05/20/2015 10:06 PM MANAGER ELECTRICAL [facility] ([facility]) Multiple Gestation No 05/20/2015 10:06 PM MANAGER ELECTRICAL [facility] ([facility]) Alpha-Fetoprotein Value (EIA) 32.3 ng/mL 05/20/2015 10:06 PM MANAGER ELECTRICAL [facility] ([facility]) AFP MoM Value 1.10 05/20/2015 10:06 PM MANAGER ELECTRICAL [facility] ([facility]) hCG Value 68677 mIU/mL 05/20/2015 10:06 PM MANAGER ELECTRICAL [facility] ([facility]) hCG Mom 1.13 05/20/2015 10:06 PM MANAGER ELECTRICAL [facility] ([facility]) Estriol Value 0.55 ng/mL 05/20/2015 10:06 PM MANAGER ELECTRICAL [facility] ([facility]) Estriol MoM 0.64 05/20/2015 10:06 PM MANAGER ELECTRICAL [facility] ([facility]) MINA Value 144.06 pg/mL 05/20/2015 10:06 PM MANAGER ELECTRICAL [facility] ([facility]) Mina MoM Value 0.95 05/20/2015 10:06 PM MANAGER ELECTRICAL [facility] ([facility]) OSBR Risk 1 IN 8933 05/20/2015 10:06 PM MANAGER ELECTRICAL [facility] ([facility]) DSR (2nd Trimester) 1 IN 2367 05/20/2015 10:06 PM MANAGER ELECTRICAL [facility] ([facility]) DSR (By Age) 1 IN 1124 05/20/2015 10:06 PM MANAGER ELECTRICAL [facility] ([facility]) T18 Risk Not increased 05/20/2015 10:06 PM MANAGER ELECTRICAL [facility] ([facility]) T18 (by Age) 1:4377 05/20/2015 10:06 PM MANAGER ELECTRICAL [facility] ([facility]) Interpretation Comment 05/20/2015 10:06 PM MANAGER ELECTRICAL [facility] ([facility]) Comment: Interpretation: Screen Negative This result is screen negative for OSB, Down Syndrome and Trisomy 18. The AFP MoM and patient specific risks calculated are based on the gestational age and the clinical information provided. This test can identify up to 80% of open neural tube defects. Closed neural tube defects and some open defects may not be detected by this test. The combination of maternal age, AFP, hCG, uE3, and MINA identifies 75-80% of Down Syndrome. The combination of maternal age, AFP, hCG and uE3 identifies 60% of Trisomy 18 pregnancies. The [employer] recommends amniocentesis be offered to women age 35 and older. Recalculations are not recommended when gestational dating by LMP and ultrasound are within 10 days. Comments Comment 05/20/2015 10:06 PM MANAGER ELECTRICAL [facility] ([facility]) Comment: Purnima Laughlin, Ph.D., [facility] Principal Genetics Skidder Operator References: Available Upon Request. Multiples Of Median Cutoffs Abbreviation Definitions For AFP Elevations IDD- Insulin Dep Diabetes Bradley 2.5 Black 2.8 OSBR- Open Spina Bifida IDD 2.0 Twins 4.5 Risk DSR Cutoff 1:270 DSR- Down Syndrome Risk T18 Cutoff 1:100 T18- Trisomy 18 Down Syndrome and Trisomy 18 screening are considered Investigational For further inquiries contact [facility] at [phone]. Blood specimen (specimen) BLOOD SPECIMEN / Unknown Venipuncture / Unknown 05/19/2015 10:58 AM MANAGER ELECTRICAL 05/19/2015 11:06 AM MANAGER ELECTRICAL Narrative [facility] ([facility]) - 05/20/2015 10:06 PM MANAGER ELECTRICAL Performed at: - [facility] [place], [place] [id number] Welder Assistant: Norma Paz MD, Phone: [phone] Patrica Camp POST CLOSING SPECIALIST-SPRINKLER FITTER LAB - CHEMISTR Y ORDERABLES [facility] ([facility]) * TSH REFLEX FREE T4 (03/28/2015 11:57 AM MANAGER ELECTRICAL) Pathologist [facility] TSH 1.45 0.358 - 3.740 ulU/mL 03/28/2015 7:51 PM MANAGER ELECTRICAL [facility] Blood BLOOD SPECIMEN / Unknown Venipuncture / Unknown 03/28/2015 11:57 AM MANAGER ELECTRICAL 03/28/2015 7:27 PM MANAGER ELECTRICAL Kimberly Lopez POST CLOSING SPECIALIST-[facility] LAB - CHEMISTRY OR DERABLES Performing Organization Address City/[facility]/ZIP Co de Phone Number [facility] [address] [place] [address] * RUBELLA ANTIBODY IGG TITER (03/28/2015 11:57 AM MANAGER ELECTRICAL) Pathologist [facility] Rubella Antibody IgG 12.8 IU/mL 03/30/2015 5:57 PM MANAGER ELECTRICAL [facility] ([facility]) Comment: INTERPRETIVE INFORMATION: Rubella Antibody, IgG Less than 9 IU/mL ........ Not Detected 9 - 9.9 IU/mL ............ Indeterminate-Repeat testing in 10-14 days may be helpful. 10 IU/mL or Greater ...... Detected The best evidence for current infection is a significant change on two appropriately timed specimens, where both tests are done in the same laboratory at the same time. Blood specimen (specimen) BLOOD SPECIMEN / Unknown Venipuncture / Unknown 03/28/2015 11:57 AM MANAGER ELECTRICAL 03/28/2015 1:03 PM MANAGER ELECTRICAL Kimberly Lopez APRN-[facility] LAB - SEROLOGY ORD ERABLES [facility] ([facility]) [address] [place] [address], [facility] * CYTOLOGY CERVICAL/VAG SCREEN THIN PREP (03/28/2015 11:56 AM MANAGER ELECTRICAL) ThinPrep Pap See Scanned Report 04/12/2015 10:42 AM MANAGER ELECTRICAL [facility] REF LAB NON INTERF Miscellaneous samples (specimen) ENTIRE ENDOCERVIX / Unknown Collection / Unknown 03/28/2015 11:56 AM MANAGER ELECTRICAL 03/29/2015 11:52 AM MANAGER ELECTRICAL Kimberly Lopez APRN-[facility] LAB - PATHOLOGY/CY TOLOGY ORDERABLES Performing Organization Address City/[facility]/ZIP Co de Phone Number [facility] REF LAB NON INTERF [address] * (ABNORMAL) URINALYSIS ROUTINE AUTO (03/28/2015 11:56 AM MANAGER ELECTRICAL) Only the most recent of5 resultswithin the time period is included. Color UA Yellow Straw, Yellow, Dark Yellow 03/28/2015 1:26 PM MANAGER ELECTRICAL [facility] Clarity UA Cloudy 03/28/2015 1:26 PM MANAGER ELECTRICAL [facility] Specific [place] UA 1.018 1.005 - 1.030 03/28/2015 1:26 PM MANAGER ELECTRICAL [facility] pH UA 6.0 5.0 - 8.0 pH 03/28/2015 1:26 PM MANAGER ELECTRICAL [facility] Protein UA Trace(A) Negative 03/28/2015 1:26 PM MANAGER ELECTRICAL [facility] Blood UA Negative Negative 03/28/2015 1:26 PM MANAGER ELECTRICAL [facility] Leukocyte UA 1+(A) Negative 03/28/2015 1:26 PM MANAGER ELECTRICAL [facility] Nitrite UA Negative Negative 03/28/2015 1:26 PM MANAGER ELECTRICAL [facility] Glucose UA Negative Negative 03/28/2015 1:26 PM MANAGER ELECTRICAL [facility] Ketone UA Negative Negative 03/28/2015 1:26 PM MANAGER ELECTRICAL [facility] Bilirubin UA Negative Negative 03/28/2015 1:26 PM MANAGER ELECTRICAL [facility] Urobilinogen UA 0.2 0.1 - 1.0 EU/dL 03/28/2015 1:26 PM MANAGER ELECTRICAL [facility] WBC UA Auto 5-10(A) 0-2, 2-5 # /hpf 03/28/2015 1:26 PM MANAGER ELECTRICAL [facility] RBC UA Auto 10-20(A) 0-2, 2-5 # /hpf 03/28/2015 1:26 PM MANAGER ELECTRICAL [facility] Epithelial Cell UA Auto 5-10(A) 0-2, 2-5 # /hpf 03/28/2015 1:26 PM MANAGER ELECTRICAL [facility] Bacteria UA Auto 1+(A) None seen 03/28/2015 1:26 PM MANAGER ELECTRICAL [facility] Hyaline Casts UA Auto 2-5(A) 0 - 2 #/lpf 03/28/2015 1:26 PM [facility] Urine URINE SPECIMEN OBTAINED BY CLEAN CATCH PROCEDURE / Unknown Venipuncture / Unknown 03/28/2015 11:56 AM MANAGER ELECTRICAL 03/28/2015 1:10 PM MANAGER ELECTRICAL Kimberly Lopez APRN-SARAH LAB - URINALYSIS O RDERABLES [facility] [address] [place] [address] * RUBELLA IMMUNE STATUS (03/28/2015 11:56 AM MANAGER ELECTRICAL) Rubella Antibody IgG Immune Status Positive - Immune 03/28/2015 2:05 PM [facility] Blood BLOOD SPECIMEN / Unknown Venipuncture / Unknown 03/28/2015 11:56 AM MANAGER ELECTRICAL 03/28/2015 1:04 PM MANAGER ELECTRICAL Kimberly Lopez APRN-CN LAB - CHEMISTRY OR DERABLES Performing Organization Address City/[facility]/[place] [address] * CHLAMYDIA + GC AMPLIFIED PROBE (03/28/2015 11:56 AM MANAGER ELECTRICAL) Chlamydia Amplified Probe Negative Negative 03/29/2015 12:13 PM MANAGER ELECTRICAL [facility] GC Amplified Probe Negative Negative 03/29/2015 12:13 PM MANAGER ELECTRICAL [facility] Microbiology ENTIRE ENDOCERVIX / Unknown Venipuncture / Unknown 03/28/2015 11:56 AM MANAGER ELECTRICAL 03/28/2015 1:10 PM MANAGER ELECTRICAL Narrative [facility] - 03/29/2015 12:13 PM MANAGER ELECTRICAL Results based on detection/no detection of ribosomal RNA by amplified method. Kimberly Lopez APRNADAMS-[facility] LAB - MICROBIOLOGY ORDERABLES [facility] [address] [place], [place] [id number] [place] [address] * HEPATITIS B SURFACE ANTIGEN (03/28/2015 11:56 AM MANAGER ELECTRICAL) HBsAg Non Reactive Non Reactive 03/28/2015 2:05 PM MANAGER ELECTRICAL [facility] Blood BLOOD SPECIMEN / Unknown Venipuncture / Unknown 03/28/2015 11:56 AM MANAGER ELECTRICAL 03/28/2015 1:03 PM MANAGER ELECTRICAL Kimberly Lopez [facility] - CHEMISTRY OR DERABLES Performing Organization Address [facility] Co de Phone Number [facility] [address] [place] [address] * HIV-1 HIV-2 ANTIBODY + HIV P24 AG PANEL (03/28/2015 11:55 AM MANAGER ELECTRICAL) Pathologist [facility] HIV1/2 Ab + P24 Ag Non Reactive Non Reactive 03/28/2015 4:56 PM MANAGER ELECTRICAL [facility] Blood BLOOD SPECIMEN / Unknown Venipuncture / Unknown 03/28/2015 11:55 AM MANAGER ELECTRICAL 03/28/2015 1:03 PM MANAGER ELECTRICAL Narrative [facility] - 03/28/2015 4:56 PM MANAGER ELECTRICAL No Laboratory evidence of HIV infection. Kimberly Lopez [facility] - CHEMISTRY OR DERABLES Performing Organization Address City/[facility]/ZIP Co de Phone Number [facility] [address] [place] [id number] * HCG URINE QUALITATIVE - POCT (IP) [facility] (07/28/2014 10:25 AM CDT) Test Urine neg [facility] Urine specimen (specimen) 07/28/2014 10:25 AM CDT Shirley Mendez MD LAB - POINT OF CA RE ORDERABLES [facility] * LAB RESULTS ORDER (05/13/2014 8:00 PM MANAGER ELECTRICAL) Narrative 05/13/2014 8:00 PM MANAGER ELECTRICAL Ordered by an unspecified provider. Scanned Document LAB - THERAPEUTIC DR ALEX MONITORING ORDERABLES * (ABNORMAL) BLOOD GASES CORD KEARA (ISTAT) (05/09/2014 10:59 PM MANAGER ELECTRICAL) pH Cord Venous POCT 7.28 7.28 - 7.40 pH 05/09/2014 11:03 PM MANAGER ELECTRICAL [facility] pCO2 Cord Venous POCT 44 35 - 45 mmHg 05/09/2014 11:03 PM MANAGER ELECTRICAL [facility] pO2 Cord Venous POCT 33 22 - 33 mmHg 05/09/2014 11:03 PM [facility] HCO3 Cord Arterial POCT 21(L) 22 - 24 mmol/L 05/09/2014 11:03 PM [facility] BE Cord Venous POCT Calc -6 -6 - 2 mmol/L 05/09/2014 11:03 PM [facility] TCO2 Cord Venous POCT 22 22 - 30 mmol/L 05/09/2014 11:03 PM [facility] O2 Saturation % Cord Venous Calc POCT 55 % 05/09/2014 11:03 PM MANAGER ELECTRICAL [facility] Site CORD KEARA 05/09/2014 11:03 PM [facility] Sample iSTAT CORD V 05/09/2014 11:03 PM [facility] Blood CORD BLOOD SPECIMEN / Unknown 05/09/2014 10:59 PM MANAGER ELECTRICAL 05/09/2014 11:03 PM MANAGER ELECTRICAL Gosia Chu MD LAB - POINT OF CARE ORDERABLES [facility] [address] [place] [address] * GROSS + MICRO EXAM (STL) (05/09/2014 10:59 PM MANAGER ELECTRICAL) Case Report Surgical Pathology Report Case: [id number] Authorizing Provider: Ameena Yates MD Collected: 05/09/2014 10:59 PM Ordering Location: [address] Received: 05/10/2014 08:53 AM Pathologist: Shailesh Maria MD Specimen: Placenta 05/11/2014 3:19 PM MANAGER ELECTRICAL [facility] Final Diagnosis 1. Placenta, delivery: -- Third trimester placenta -- Three vessel umbilical cord -- Unremarkable membranes /[facility] 05/11/2014 3:19 PM [facility] Gross Description Received in formalin in a container labeled Hannah Martinez, placenta. The container holds a 610 gm, 17.5 x 15 x 3.5 cm bradley, partially circumvallate disk placenta with attached membranes and umbilical cord. The membranes rupture 6 cm from the placental disk margin and are mobley semitransparent. The umbilical cord inserts eccentrically 6.5 cm from the placental disk margin and measures 30 cm in length and up to 2.4 cm in diameter. The umbilical cord contains three vessels. The surface is purple-mobley. The vessels arborize in a normal pattern and are unremarkable. There are scattered areas of subchorionic fibrin. The maternal surface has well-developed intact lobular cotyledons. Serial sectioning shows red-brown parenchyma. There are no lesions or masses grossly identified. Human Factors Ergonomist sections are submitted as follows: A1 - Membranes and umbilical cord A2 - and maternal surface A3 - Maternal surface. DYT/rtc 05/11/2014 3:19 PM MANAGER ELECTRICAL [facility] Microscopic Description Sections of the umbilical cord show three vessels with no evidence of vasculitis or funisitis. Sections of the membranes show unremarkable histology and are free of inflammation. Meconium is not identified. Sections of the placental disc show mature chorionic villi with no evidence of hemorrhage or infarction. Subchorionic fibrin deposition is noted. /[facility] 05/11/2014 3:19 PM [facility] Pathology/Cytolo gy ENTIRE PLACENTA / Unknown 05/09/2014 10:59 PM MANAGER ELECTRICAL 05/10/2014 8:53 AM MANAGER ELECTRICAL Jacki Theodore MD LAB - PATHOLOGY/CYTO LOGY ORDERABLES [facility] [address] [place] [address] * (ABNORMAL) BLOOD GASES CORD ART (ISTAT) (05/09/2014 10:55 PM MANAGER ELECTRICAL) pH Cord Arterial POCT 7.21 7.20 - 7.34 pH 05/09/2014 11:03 PM MANAGER ELECTRICAL [facility] pCO2 Cord Arterial POCT 62.5(H) 45 - 55 mmHg 05/09/2014 11:03 PM MANAGER ELECTRICAL [facility] pO2 Cord Arterial POCT 14 12 - 25 mmHg 05/09/2014 11:03 PM MANAGER ELECTRICAL [facility] HCO3 Cord Arterial POCT 24.9 15 - 29 mmol/L 05/09/2014 11:03 PM MANAGER ELECTRICAL [facility] BE Cord Arterial POCT -5(L) -2.9 - 8.3 mmol/L 05/09/2014 11:03 PM MANAGER ELECTRICAL [facility] TCO2 Cord Arterial POCT 27 mmol/L 05/09/2014 11:03 PM [facility] O2 Saturation Cord Art % Calc POCT 12 % 05/09/2014 11:03 PM [facility] Site CORD ART 05/09/2014 11:03 PM [facility] Sample iSTAT CORD A 05/09/2014 11:03 PM MANAGER ELECTRICAL [facility] Blood CORD BLOOD SPECIMEN / Unknown 05/09/2014 10:55 PM MANAGER ELECTRICAL 05/09/2014 11:03 PM MANAGER ELECTRICAL Gosia Chu MD LAB - POINT OF CARE ORDERABLES [facility] [address] [place] [address] * BLOOD TYPE ABO+ RH PANEL (05/09/2014 10:36 AM MANAGER ELECTRICAL) Miscellaneous samples (specimen) BLOOD SPECIMEN / Unknown Venipuncture / Unknown 05/09/2014 10:36 AM MANAGER ELECTRICAL 05/09/2014 10:51 AM MANAGER ELECTRICAL Walter Samuel MD LAB - BLOOD BANK ORD ERABLES [facility] BLOOD BANK [facility] [address] [place] [id number], [facility] * US THYROID (03/07/2014 9:55 AM CDT) Anatomical Region Laterality Modality Chest Ultrasound 03/07/2014 12:5 4 PM CDT Impressions 03/07/2014 12:58 PM CDT 1. There is a large solid predominantly hyperechoic right thyroid nodule measuring 4.9 x 2.9 x 3.6 cm. Associated cystic spaces are present. Given the nodules size, fine needle aspiration biopsy is recommended. 2. Predominantly hypoechoic left-sided thyroid nodule measuring 1.6 x 1 x 0.9 cm with associated calcifications. Fine needle aspiration biopsy of this nodule is also recommended. Narrative 03/07/2014 12:58 PM CDT Examination: Thyroid sonogram History: Palpable right thyroid nodule Findings: Real-time grayscale sonography of the thyroid was performed. Right thyroid lobe measures 5.8 x 3 x 3.7 cm. There is a predominant hyperechoic solid nodule measuring 4.2 x 2.9 x 3.6 cm. No definite microcalcifications are seen. Cystic spaces are present within the nodule. Left lobe of the thyroid measures 5.1 x 1.6 x 1.5 cm. There is a left-sided 1.6 x 1 x 0.9 cm nodule. Associated shadowing likely calcification is noted. The lesion is predominantly hypoechoic. Isthmus thickness is 6 mm. Procedure Note Jordy Marcial MD - 03/07/2014 Examination: Thyroid sonogram History: Palpable right thyroid nodule Findings: Real-time grayscale sonography of the thyroid was performed. Right thyroid lobe measures 5.8 x 3 x 3.7 cm. There is a predominant hyperechoic solid nodule measuring 4.2 x 2.9 x 3.6 cm. No definite microcalcifications are seen. Cystic spaces are present within the nodule. Left lobe of the thyroid measures 5.1 x 1.6 x 1.5 cm. There is a left-sided 1.6 x 1 x 0.9 cm nodule. Associated shadowing likely calcification is noted. The lesion is predominantly hypoechoic. Isthmus thickness is 6 mm. IMPRESSION 1. There is a large solid predominantly hyperechoic right thyroid nodule measuring 4.9 x 2.9 x 3.6 cm. Associated cystic spaces are present. Given the nodules size, fine needle aspiration biopsy is recommended. 2. Predominantly hypoechoic left-sided thyroid nodule measuring 1.6 x 1 x 0.9 cm with associated calcifications. Fine needle aspiration biopsy of this nodule is also recommended. Edna Chaudhry POST CLOSING SPECIALIST-SPRINKLER FITTER US ORDERAB LES * PROTEIN CREATININE RATIO URINE TIMED PNL (02/07/2014 4:21 PM CDT) Volume 24 Hour Urine 2,330 mL 02/07/2014 4:30 PM CDT [facility] Collection Time Hours 24 hrs 02/07/2014 4:30 PM CDT [facility] Protein Urine 7.4 mg/dL 02/07/2014 4:30 PM CDT [facility] Creatinine Urine 41.98 mg/dL 02/07/2014 4:30 PM CDT [facility] Protein/Creatin ine Ratio Urine 0.18 02/07/2014 4:30 PM CDT [facility] Urine TIMED URINE SPECIMEN / Unknown 02/07/2014 4:21 PM CDT 02/07/2014 4:21 PM CDT Jacki Theodore MD LAB - URINE CHEMISTR Y ORDERABLES [facility] [address] [place] [address] * PROTEIN URINE TIMED QUANTITATIVE (02/07/2014 4:21 PM CDT) Volume 24 Hour Urine 2,330 mL 02/07/2014 4:30 PM CDT [facility] Collection Time Hours 24 hrs 02/07/2014 4:30 PM CDT [facility] Protein 24 Hour Urine 172 42 - 225 mg/24hr 02/07/2014 4:30 PM CDT [facility] Protein Urine 7.4 mg/dL 02/07/2014 4:30 PM CDT [facility] Urine TIMED URINE SPECIMEN / Unknown 02/07/2014 4:21 PM CDT 02/07/2014 4:21 PM CDT Jacki Theodore MD LAB - URINE CHEMISTR Y ORDERABLES Performing Organization Address [facility] Co de Phone Number [facility] [address] [place] [address] * TSH (02/07/2014 9:52 AM CDT) Only the most recent of2 resultswithin the time period is included. TSH 2.73 0.358 - 3.740 uIU/mL 02/07/2014 4:11 PM CDT [facility] Comment: Blood BLOOD SPECIMEN / Unknown 02/07/2014 9:52 AM CDT 02/07/2014 3:37 PM CDT Lorena Hopson Jarad [facility] LAB - DIAMOND SIZER AND GRADER RY ORDERABLES Performing Organization Address [facility] de Phone Number [facility] [address] [place] [address] * T4 FREE (02/07/2014 9:52 AM CDT) Pathologist [facility] T4 Free 1.09 0.65 - 1.34 ng/dL 02/07/2014 4:06 PM CDT [facility] Comment: Blood BLOOD SPECIMEN / Unknown 02/07/2014 9:52 AM CDT 02/07/2014 3:37 PM CDT Lorena Hopson Jarad [facility] - DIAMOND SIZER AND GRADER RY ORDERABLES Performing Organization Address [facility] de Phone Number [facility] [address] [place] [address] * (ABNORMAL) COMPREHENSIVE METABOLIC PANEL (02/07/2014 8:57 AM CDT) Only the most recent of4 resultswithin the time period is included. Glucose 56(L) 74 - 106 mg/dL 02/07/2014 4:06 PM CDT [facility] Sodium 137 136 - 145 mmol/L 02/07/2014 4:06 PM CDT [facility] Potassium 4.3 3.5 - 5.1 mmol/L 02/07/2014 4:06 PM CDT [facility] Chloride 104 98 - 107 mmol/L 02/07/2014 4:06 PM CDT [facility] CO2 26 22 - 31 mmol/L 02/07/2014 4:06 PM CDT [facility] Calcium 9.2 8.5 - 10.1 mg/dL 02/07/2014 4:06 PM CDT [facility] Anion Gap 7 5 - 15 mmol/L 02/07/2014 4:06 PM CDT [facility] BUN 4(L) 7 - 21 mg/dL 02/07/2014 4:06 PM CDT [facility] Creatinine 0.31(L) 0.50 - 1.30 mg/dL 02/07/2014 4:06 PM CDT [facility] eGFR by MDRD >60 >60 mL/min/1.7 3m2 02/07/2014 4:06 PM CDT [facility] eGFR by MDRD >60 >60 mL/min/1.7 3m2 02/07/2014 4:06 PM CDT [facility] Alkaline Phosphatase 113 38 - 126 U/L 02/07/2014 4:06 PM CDT [facility] ALT 14 12 - 78 U/L 02/07/2014 4:06 PM CDT [facility] AST 8 5 - 40 U/L 02/07/2014 4:06 PM CDT [facility] Protein Total 7.4 6.4 - 8.2 gm/dL 02/07/2014 4:06 PM CDT [facility] Albumin 2.7(L) 3.4 - 5.0 gm/dL 02/07/2014 4:06 PM CDT [facility] Bilirubin Total 0.2 0.2 - 1.0 mg/dL 02/07/2014 4:06 PM T [facility] Blood BLOOD SPECIMEN / Unknown 02/07/2014 8:57 AM CDT 02/07/2014 3:37 PM CDT Raven Coon MD LAB - CHEMISTRY TYRONE RENTERIA [facility] Organization Address City/State/ZIP Co de Phone Number [facility] [address] [place] [address] * (ABNORMAL) CREATININE CLEARANCE URINE TIMED (02/07/2014 8:53 AM CDT) Volume 24 Hour Urine 2,330 mL 02/07/2014 3:59 PM [facility] Collection Time Hours 24 hrs 02/07/2014 3:59 PM T [facility] Height Inches 61 inches 02/07/2014 3:59 PM T [facility] Weight in Pounds 204 pounds 02/07/2014 3:59 PM CDT [facility] Surface Area 1.91 02/07/2014 3:59 PM CDT [facility] Creatinine 0.31(L) 0.50 - 1.30 mg/dL 02/07/2014 3:59 PM CDT [facility] Creatinine Urine 43.08 mg/dL 02/07/2014 3:59 PM [facility] Creatinine 24 Hour Urine 1,004 800 - 1,800 mg/24hr 02/07/2014 3:59 PM [facility] Creatinine Clearance 204(H) 87 - 107 mL/min/1.73 m2 02/07/2014 3:59 PM [facility] Urine TIMED URINE SPECIMEN / Unknown 02/07/2014 8:53 AM CDT 02/07/2014 3:39 PM CDT Jacki Theodore MD LAB - URINE CHEMISTR Y ORDERABLES Performing Organization Address City/State/[facility] Co de Phone Number [facility] [address] [place] [address] * (ABNORMAL) URINALYSIS MICROSCOPIC ONLY (11/10/2013 6:58 AM CDT) RBC UA 0-2, 2-5 # /hpf 11/10/2013 7:24 AM [facility] WBC UA 2-5 0-2, 2-5 # /hpf 11/10/2013 7:24 AM [facility] Bacteria UA 3+(A) None Seen, Trace 11/10/2013 7:24 AM [facility] Epithelial Cell UA 2-5 0-2, 2-5 11/10/2013 7:24 AM T [facility] Mucus UA 2+ 11/10/2013 7:24 AM [facility] Amorphous Urate Crystals 2+(A) None Seen 11/10/2013 7:24 AM [facility] Urine URINE SPECIMEN OBTAINED BY CLEAN CATCH PROCEDURE / Unknown 11/10/2013 6:58 AM CDT 11/10/2013 7:01 AM CDT Manny Irwin MD LAB - URINALYSIS ORD ERABLES [facility] [address] [place] [address] * MRI SPINE LUMBAR WITH AND WITHOUT CONTRAST (04/21/2012 6:44 PM MANAGER ELECTRICAL) Anatomical Region Laterality Modality Spine Magnetic Resonan ce Impressions 04/22/2012 3:54 PM MANAGER ELECTRICAL 1. Minimal diffuse disc bulges and facet arthropathy of the lower lumbar spine as described above. 2. Postsurgical enhancement, no abnormal enhancement is seen. The visualized portion of the central canal is patent. 3. Upper lumbar levels obscured due to blooming artifact, a lumbar spine CT could be considered for evaluation of the hardware integrity. Dictated by Piyush Beach MD Narrative 04/22/2012 3:54 PM MANAGER ELECTRICAL EXAMINATION: Magnetic resonance imaging (MRI) of the lumbar spine without contrast HISTORY: Back pain, status post spinal fusion April 2010. TECHNIQUE: MRI of the lumbar spine was performed with and without 17 mL Magnevist intravenous contrast according to standard protocol. FINDINGS: Comparison is made to radiographs dated May 10, 2011 and March 27, 2012 Artifact from the spinal fusion hardware severely limits evaluation of the central canal, spinal cord, and neural foramina at the levels of L3 and above. Transpedicular screws extend from the thoracic spine and can be seen at T12-L3 which are bilateral, except at T12 where there is only a left transpedicular screw. The vertebral body heights and intervertebral disc spaces are visible and are within normal limits. Normal signal is seen in the intervertebral discs. Normal alignment can be visualized from L2 through S1, but cannot be determined superiorly due to artifact. There is mild enhancement around the transpedicular screws which likely postoperative. There is also a small amount of enhancement along the surgical incision, likely scarring. No other areas of abnormal enhancement are seen. The conus medullaris is not visible. No fluid collections are seen. There appears to be a hemorrhagic cyst in the right ovary. T12-L1: Fused. The central canal and neural foramina are not visible due to artifact. L1-L2: Fused. The central canal and neural foramina are only partially visualized due to artifact, but the visible portions are normal. L2-L3: Fused. The Central canal and neural foramina are partially visible due to artifact but the visible portions are normal. L3-L4: There is a mild diffuse disc bulge. There is moderate right and mild left facet hypertrophy with moderate bilateral subarticular recess stenosis. There is mild bilateral neural foraminal narrowing. L4-L5: There is a mild diffuse disc bulge. There is mild facet hypertrophy. There is mild bilateral neural foraminal narrowing. L5-S1: There is a mild diffuse disc bulge which abuts the bilateral L5 nerve roots. Procedure Note Sydnie Kohli MD - 04/22/2012 EXAMINATION: Magnetic resonance imaging (MRI) of the lumbar spine without contrast HISTORY: Back pain, status post spinal fusion April 2010. TECHNIQUE: MRI of the lumbar spine was performed with and without 17 mL Magnevist intravenous contrast according to standard protocol. FINDINGS: Comparison is made to radiographs dated May 10, 2011 and March 27, 2012 Artifact from the spinal fusion hardware severely limits evaluation of the central canal, spinal cord, and neural foramina at the levels of L3 and above. Transpedicular screws extend from the thoracic spine and can be seen at T12-L3 which are bilateral, except at T12 where there is only a left transpedicular screw. The vertebral body heights and intervertebral disc spaces are visible and are within normal limits. Normal signal is seen in the intervertebral discs. Normal alignment can be visualized from L2 through S1, but cannot be determined superiorly due to artifact. There is mild enhancement around the transpedicular screws which likely postoperative. There is also a small amount of enhancement along the surgical incision, likely scarring. No other areas of abnormal enhancement are seen. The conus medullaris is not visible. No fluid collections are seen. There appears to be a hemorrhagic cyst in the right ovary. T12-L1: Fused. The central canal and neural foramina are not visible due to artifact. L1-L2: Fused. The central canal and neural foramina are only partially visualized due to artifact, but the visible portions are normal. L2-L3: Fused. The Central canal and neural foramina are partially visible due to artifact but the visible portions are normal. L3-L4: There is a mild diffuse disc bulge. There is moderate right and mild left facet hypertrophy with moderate bilateral subarticular recess stenosis. There is mild bilateral neural foraminal narrowing. L4-L5: There is a mild diffuse disc bulge. There is mild facet hypertrophy. There is mild bilateral neural foraminal narrowing. L5-S1: There is a mild diffuse disc bulge which abuts the bilateral L5 nerve roots. IMPRESSION 1. Minimal diffuse disc bulges and facet arthropathy of the lower lumbar spine as described above. 2. Postsurgical enhancement, no abnormal enhancement is seen. The visualized portion of the central canal is patent. 3. Upper lumbar levels obscured due to blooming artifact, a lumbar spine CT could be considered for evaluation of the hardware integrity. Dictated by Piyush Beach MD Gene Gandhi MD MR ORDERABLES * XR SCOLIOSIS ERECT (03/27/2012 8:14 AM MANAGER ELECTRICAL) Only the most recent of5 resultswithin the time period is included. Anatomical Region Laterality Modality Spine Radiographic Agny ging 03/27/2012 12:5 9 PM MANAGER ELECTRICAL Impressions 03/27/2012 12:59 PM MANAGER ELECTRICAL Idiopathic scoliosis, fused, unchanged. Narrative 03/27/2012 12:59 PM MANAGER ELECTRICAL Scoliosis standing PA and lateral The spine has been fused between T3 and L4. The hardware appears intact. The pelvis remains tilted with the right iliac crest higher than the left. Procedure Note Sol Conn MD - 03/27/2012 Scoliosis standing PA and lateral The spine has been fused between T3 and L4. The hardware appears intact. The pelvis remains tilted with the right iliac crest higher than the left. IMPRESSION Idiopathic scoliosis, fused, unchanged. Nereida Martin MD DIAGNOSTIC IMAGING O RDERABLES * XR THORACIC SPINE 3 VW (05/10/2011 3:40 AM MANAGER ELECTRICAL) Anatomical Region Laterality Modality Spine Radiographic Angy ging 05/10/2011 7:27 AM MANAGER ELECTRICAL Impressions 05/10/2011 7:27 AM MANAGER ELECTRICAL Stable postoperative spine. Narrative 05/10/2011 7:27 AM MANAGER ELECTRICAL Thoracic spine examination dated May 10, 2011 03:41:09 AM. History: Mid back pain and numbness for about a week. Comparison is made to the prior scoliosis series of November 26. Patient is status post posterior spinal fixation from T3 through the lower margin of this examination with no change in hardware alignment, and no evidence of hardware failure or and compared to the prior scoliosis study. Vertebral body heights are preserved. No other imaging abnormalities are appreciated. Procedure Note Hunter Hammer - 05/10/2011 Thoracic spine examination dated May 10, 2011 03:41:09 AM. History: Mid back pain and numbness for about a week. Comparison is made to the prior scoliosis series of November 26. Patient is status post posterior spinal fixation from T3 through the lower margin of this examination with no change in hardware alignment, and no evidence of hardware failure or and compared to the prior scoliosis study. Vertebral body heights are preserved. No other imaging abnormalities are appreciated. IMPRESSION Stable postoperative spine. Roxie Bustillo MD DIAGNOSTIC IMAGING O RDERABLES * XR LUMBAR SPINE 2 OR 3 VW (05/10/2011 3:40 AM MANAGER ELECTRICAL) Anatomical Region Laterality Modality Spine Radiographic Angy ging 05/10/2011 7:25 AM MANAGER ELECTRICAL Impressions 05/10/2011 7:25 AM MANAGER ELECTRICAL Postoperative and degenerative changes, stable from the prior study. Narrative 05/10/2011 7:25 AM MANAGER ELECTRICAL Lumbosacral spine 2 views dated May 10, 2011 03:40:39 AM. History: Mid back pain and numbness in feet for about a week with no history of acute injury. Lumbosacral spine series is obtained. Comparison is made to scoliosis examinations dating to November 26. Posterior spinal fixation extending to the level of L3 is seen with no change in hardware alignment when compared to the previous examination. There is a preserved lumbar lordosis with no evidence of any fracture or dislocation. No hardware failure is seen. Mild facet degenerative changes are seen at the L3-L4 level. Procedure Note Hunter Hammer - 05/10/2011 Lumbosacral spine 2 views dated May 10, 2011 03:40:39 AM. History: Mid back pain and numbness in feet for about a week with no history of acute injury. Lumbosacral spine series is obtained. Comparison is made to scoliosis examinations dating to November 26. Posterior spinal fixation extending to the level of L3 is seen with no change in hardware alignment when compared to the previous examination. There is a preserved lumbar lordosis with no evidence of any fracture or dislocation. No hardware failure is seen. Mild facet degenerative changes are seen at the L3-L4 level. IMPRESSION Postoperative and degenerative changes, stable from the prior study. Roxie Bustillo MD DIAGNOSTIC IMAGING O RDERABLES * HCG URINE QUALITATIVE (05/10/2011 2:45 AM MANAGER ELECTRICAL) Only the most recent of2 resultswithin the time period is included. HCG Qual Urine Negative Negative [facility] Urine specimen (specimen) URINE / Unknown 05/10/2011 2:45 AM MANAGER ELECTRICAL 05/10/2011 3:04 AM MANAGER ELECTRICAL Roxie Bustillo MD LAB - URINALYSIS ORD ERABLES Performing Organization Address City/State/[facility] Co de Phone Number [facility] [address] [place] [address] * CT ANGIO CHEST W WO CONTRAST (05/01/2010 12:54 AM MANAGER ELECTRICAL) Anatomical Region Laterality Modality Chest Computed Tomogra phy 05/01/2010 8:53 AM MANAGER ELECTRICAL Impressions 05/01/2010 11:43 [address] ELECT[address] Normal CT scan of the chest. No pulmonary embolism. D: Addison Ng M.D. Narrative 05/01/2010 11:43 AM MANAGER ELECTRICAL EXAMINATION: CTA chest with contrast dated May 01, 2010 12:57:19 AM. HISTORY: Chest and back pain, status post posterior spinal fusion.. TECHNIQUE: Multislice helical. FINDINGS: No prior examinations are available for comparison. Artifact from posterior spinal fusion hardware limits the examination. There is no evidence of hardware failure. No pulmonary embolus is identified. The lung parenchyma is clear without evidence infiltrates or nodular opacity. No pleural effusion, focal pleural thickening is identified.The mediastinal structures appear normal. No hilar or mediastinal adenopathy is appreciated. No axillary adenopathy seen. The upper abdominal viscera as visualized in the lower sections of this study appear unremarkable. Procedure Note Hunter Hammer - 05/01/2010 EXAMINATION: CTA chest with contrast dated May 01, 2010 12:57:19 AM. HISTORY: Chest and back pain, status post posterior spinal fusion.. TECHNIQUE: Multislice helical. FINDINGS: No prior examinations are available for comparison. Artifact from posterior spinal fusion hardware limits the examination. There is no evidence of hardware failure. No pulmonary embolus is identified. The lung parenchyma is clear without evidence infiltrates or nodular opacity. No pleural effusion, focal pleural thickening is identified.The mediastinal structures appear normal. No hilar or mediastinal adenopathy is appreciated. No axillary adenopathy seen. The upper abdominal viscera as visualized in the lower sections of this study appear unremarkable. IMPRESSION Normal CT scan of the chest. No pulmonary embolism. D: Addison Ng M.D. Yao Bose MD CT ORDERABLES * PT PTT PANEL (04/30/2010 11:36 PM MANAGER ELECTRICAL) PT 13.9 12.2-14.5 seconds seconds [facility] INR 1.1 0.8 - 1.2 [facility] PTT 32 23-36 seconds seconds [facility] BLOOD SPECIMEN / Unknown 04/30/2010 11:36 PM MANAGER ELECTRICAL 04/30/2010 11:41 PM MANAGER ELECTRICAL Yao Bose MD LAB - COAGULATION OR DERABLES Performing Organization Address City/[facility] Phone Number [facility] [address] [place] [address] * (ABNORMAL) DIFFERENTIAL MANUAL (04/30/2010 11:36 PM MANAGER ELECTRICAL) Only the most recent of2 resultswithin the time period is included. Comment Manual Diff Done [facility] Band % Manual 4 % [facility] Neutrophils % Manual 71(H) 24 - 66 % [facility] Lymphocytes % Manual 15(L) 22 - 61 % [facility] Monocytes % Manual 9 3 - 15 % [facility] [place] Manual 1 % [facility] RBC Morphology Slight Anisocytosis [facility] BLOOD SPECIMEN / Unknown 04/30/2010 11:36 PM MANAGER ELECTRICAL 04/30/2010 11:53 PM MANAGER ELECTRICAL Yao Bose MD LAB - HEMATOLOGY ORD ERABLES Performing Organization Address City/[facility]/ZIP Co de Phone Number [facility] [address] [place] [address] * (ABNORMAL) D-DIMER (04/30/2010 10:12 PM MANAGER ELECTRICAL) D-Dimer 800-1600 ng/ml(H) 0 - 200 ng/ml [facility] Disclaimer D-Dimer This qualitative latex agglutination assay may not be sensitive enough for evaluation of deep vein thrombosis and or pulmonary embolism. Quantitative D-Dimer assays are available through reference lab. [facility] BLOOD SPECIMEN / Unknown 04/30/2010 10:12 PM MANAGER ELECTRICAL 04/30/2010 10:19 PM MANAGER ELECTRICAL Babs Pickering MD LAB - COAGULATION OR DERABLES Performing Organization Address [facility] Co de Phone Number [facility] [address] [place] [address] * XR CHEST PA AND LATERAL (04/30/2010 7:55 PM MANAGER ELECTRICAL) Anatomical Region Laterality Modality Chest Radiographic Angy ging 05/04/2010 8:42 AM MANAGER ELECTRICAL Impressions 05/04/2010 8:42 AM MANAGER ELECTRICAL Postoperative chest with no definite acute pulmonic process. Narrative 05/04/2010 8:42 AM MANAGER ELECTRICAL EXAMINATION:Two-view chest dated Apr 30, 2010 07:55:51 PM HISTORY: CHEST PAIN . PA and lateral views of the chest are obtained. No prior chest radiograph available, comparison is made to the prior scoliosis examination of April 27. Posterior spinal fixation persists in a pattern unchanged from the prior examination extending from T4 through the lower margin of the examination. The hardware appears intact. The cardiothymic silhouette is within normal limits. The lungs are clear without evidence of infiltrate or effusion. No bony or soft tissue abnormalities are appreciated. Procedure Note Hunter Hammer - 05/04/2010 EXAMINATION:Two-view chest dated Apr 30, 2010 07:55:51 PM HISTORY: CHEST PAIN . PA and lateral views of the chest are obtained. No prior chest radiograph available, comparison is made to the prior scoliosis examination of April 27. Posterior spinal fixation persists in a pattern unchanged from the prior examination extending from T4 through the lower margin of the examination. The hardware appears intact. The cardiothymic silhouette is within normal limits. The lungs are clear without evidence of infiltrate or effusion. No bony or soft tissue abnormalities are appreciated. IMPRESSION Postoperative chest with no definite acute pulmonic process. Babs Pickering MD DIAGNOSTIC IMAGING O RDERABLES * XR THORACOLUMBAR SPINE 2 VW (04/24/2010 1:09 PM MANAGER ELECTRICAL) Anatomical Region Laterality Modality Spine Radio Fluoroscop y 04/24/2010 1:32 PM MANAGER ELECTRICAL Narrative 04/24/2010 3:52 PM MANAGER ELECTRICAL Exam: Fluoroscopic images of the thoracolumbar spine. Date: 04/24/2010 Comparison: 04/16/2010. Findings: Seven intraoperative fluoroscopic images document the posterior spinal fusion from the upper thoracic to the lumbar spine. D: Addison Ng M.D. Procedure Note Sol Conn MD - 04/24/2010 Exam: Fluoroscopic images of the thoracolumbar spine. Date: 04/24/2010 Comparison: 04/16/2010. Findings: Seven intraoperative fluoroscopic images document the posterior spinal fusion from the upper thoracic to the lumbar spine. D: Addison Ng M.D. Frank Roach MD DIAGNOSTIC IMAGING O RDERABLES * (ABNORMAL) BLOOD GASES ART + GLUC K CA+ PANEL (04/24/2010 12:22 PM MANAGER ELECTRICAL) pH Arterial 7.385 7.35 - 7.45 pH Units [facility] pCO2 Arterial 36.8 32 - 45 mm Hg [facility] pO2 Arterial 192(H) 83 - 108 mm Hg [facility] Hemoglobin Arterial 11.6(L) 12.0 - 16.0 gm/dl [facility] O2 Saturation Arterial 99.2(H) 95 - 99 % [facility] Oxyhemoglobin Arterial 97.6 94 - 98 % [facility] Carboxyhemoglobin Arterial 0.6 0.0 - 0.8 % [facility] Methemoglobin Arterial 1.0(H) 0.2 - 0.6 % [facility] O2 Content Arterial 16.4 15 - 23 mg/dl [facility] Base Excess Arterial -2.7 -2.0 - 2.0 mmol/L [facility] P50 Arterial 26.66 25.3 - 26.8 mm Hg [facility] Potassium Whole Blood 4.1 3.4 - 4.5 mmol/L [facility] Glucose WB 158(H) 70 - 106 mg/dl [facility] Calcium Ionized 1.10 mmol/L [facility] Calcium Ionized Adjusted 1.10(L) 1.15 - 1.29 mmol/L [facility] Specimen Type/Condition Blood Gas Art/ABL [facility] ARTERIAL BLOOD SPECIMEN / Unknown 04/24/2010 12:22 PM MANAGER ELECTRICAL 04/24/2010 12:32 PM MANAGER ELECTRICAL Ale Mcbride MD LAB - BLOOD GASES OR DERABLES Performing Organization Address [facility] Co de Phone Number [facility] [address] [place] [address] * TYPE SCRN XMATCH RBC X2 (04/24/2010 6:15 AM MANAGER ELECTRICAL) ABO Rh B POS [facility] Antibody Screen NEG Negative [facility] Products Ready 2 [facility] BLOOD SPECIMEN / Unknown 04/24/2010 6:15 AM MANAGER ELECTRICAL 04/24/2010 6:37 AM MANAGER ELECTRICAL Frank Roach MD LAB - BLOOD BANK ORD ERABLES Performing Organization Address [facility] de Phone Number [facility] [address] [place] [address] * PTT (04/16/2010 3:05 PM MANAGER ELECTRICAL) PTT 29 23-36 seconds seconds [facility] BLOOD SPECIMEN / Unknown 04/16/2010 3:05 PM MANAGER ELECTRICAL 04/16/2010 3:13 PM MANAGER ELECTRICAL Beti Sanford MD LAB - COAGULATION OR DERABLES Performing Organization Address [facility] Co de Phone Number [facility] [address] [place] [address] * PT-INR (04/16/2010 3:05 PM MANAGER ELECTRICAL) PT 12.6 12.2-14.5 seconds seconds [facility] INR 0.9 0.8 - 1.2 [facility] BLOOD SPECIMEN / Unknown 04/16/2010 3:05 PM MANAGER ELECTRICAL 04/16/2010 3:13 PM MANAGER ELECTRICAL Beti Sanford MD LAB - COAGULATION OR DERABLES Performing Organization Address [facility] de Phone Number [facility] [address] [place] [phone] * (ABNORMAL) PHOSPHORUS BLOOD (04/16/2010 3:05 PM MANAGER ELECTRICAL) Phosphorus 4.7(H) 2.8 - 4.6 mg/dl [facility] BLOOD SPECIMEN / Unknown 04/16/2010 3:05 PM MANAGER ELECTRICAL 04/16/2010 3:13 PM MANAGER ELECTRICAL Beti Sanford MD LAB - CHEMISTRY TYRONE RENTERIA Performing Organization Address [facility] de Phone Number [facility] [address] [place] [address] * MAGNESIUM BLOOD (04/16/2010 3:05 PM MANAGER ELECTRICAL) Pathologist [facility] Magnesium 1.9 1.6 - 2.3 mg/dl [facility] BLOOD SPECIMEN / Unknown 04/16/2010 3:05 PM MANAGER ELECTRICAL 04/16/2010 3:13 PM MANAGER ELECTRICAL Beti Sanford MD LAB - CHEMISTRY TYRONE RENTERIA Performing Organization Address [facility] de Phone Number [facility] [address] [place] [phone] * XR THORACIC SPINE BENDING VIEWS (04/16/2010 2:22 PM MANAGER ELECTRICAL) Anatomical Region Laterality Modality Spine Radiographic Angy ging 04/16/2010 2:57 PM MANAGER ELECTRICAL Impressions 04/16/2010 2:58 PM MANAGER ELECTRICAL Idiopathic scoliosis, decreased with bending to the right. Narrative 04/16/2010 2:58 PM MANAGER ELECTRICAL Thoracic spine bending views Correlation is made with the scoliosis study dated 03/05/2010. With bending to the right, the right scoliosis between T4 and T11 decreases from 50 degrees to 23 degrees. The curve does not change significantly with bending to the left. Procedure Note Sol Conn MD - 04/16/2010 Thoracic spine bending views Correlation is made with the scoliosis study dated 03/05/2010. With bending to the right, the right scoliosis between T4 and T11 decreases from 50 degrees to 23 degrees. The curve does not change significantly with bending to the left. IMPRESSION Idiopathic scoliosis, decreased with bending to the right. Agapito Ward DO DIAGNOSTIC IMAGING O RDERABLES * C-REACTIVE PROTEIN (11/27/2009 3:25 PM CDT) Only the most recent of2 resultswithin the time period is included. C-Reactive Protein <0.5 <1.0 mg/dl mg/dl [facility] BLOOD SPECIMEN / Unknown 11/27/2009 3:25 PM CDT 11/27/2009 4:12 PM CDT Bobby Marcano MD LAB - CHEMISTRY ORD ERABLES Performing Organization Address City/[facility]/ZIP Co de Phone Number [facility] [address] [place] [phone] * (ABNORMAL) VITAMIN D 25-HYDROXY (11/27/2009 3:25 PM CDT) Only the most recent of2 resultswithin the time period is included. Vitamin D, 25 Hydroxy 22.12(L) 30 - 100 ng/ml [facility] BLOOD SPECIMEN / Unknown 11/27/2009 3:25 PM CDT 11/27/2009 4:12 PM CDT Narrative Resulting Agency Comment Performed By [facility] [address] [place] [address] Bobby Marcano MD LAB - CHEMISTRY ORD ERABLES [facility] [address] [place] [phone] * (ABNORMAL) SED RATE WESTERGREN AUTO (11/27/2009 3:25 PM CDT) Only the most recent of2 resultswithin the time period is included. Erythrocyte Sedimentation Rate Westergren 16(H) 0 - 13 mm/Hr [facility] BLOOD SPECIMEN / Unknown 11/27/2009 3:25 PM CDT 11/27/2009 4:12 PM CDT Bobby Marcano MD LAB - HEMATOLOGY OR DERABLES Performing Organization Address City/State/[facility] Co va Phone Number [facility] [address] [place] [address] * XR TIBIA AND FIBULA 2 VW LEFT (06/05/2009 2:13 PM MANAGER ELECTRICAL) Anatomical Region Laterality Modality Lower Extremity Other 06/05/2009 2:13 PM MANAGER ELECTRICAL Narrative 06/05/2009 4:49 PM MANAGER ELECTRICAL Exam- Left tibia and fibula AP and lateral views The osseous, joint and soft tissues are normal. Impression- Normal. Reading Amanda RICHMOND MD Releasing Amanda RICHMOND MD Released Date Time- 06/05/091649 Manager AssemblyLeny RICHMOND MD ADM- VALERIANO,BOBBY H ATT- VALERIANO,BOBBY H ORD- VALERIANO,BOBBY H CON- PCP- TATE BARBOZA- TATE BARBOZA Procedure Note Bonnie Richmond MD, - 06/05/2009 Exam- Left tibia and fibula AP and lateral views The osseous, joint and soft tissues are normal. Impression- Normal. Reading Amanda RICHMOND MD Releasing Amanda RICHMOND MD Released Date Time- 06/05/091649 Manager Assemblysincere RICHMOND MD ADM- VALERIANO,BOBBY H ATT- VALERIANO,BOBBY H ORD- VALERIANO,BOBBY H CON- MARICHUY- TATE BARBOZA- TATE BARBOZA Bobby Marcano MD DIAGNOSTIC IMAGING ORDERABLES * SM ANTIBODY DAQUAN (06/05/2009 1:55 PM MANAGER ELECTRICAL) Pathologist [facility] (DAQUAN) Antibody 1.61 SEE BELOW EU [facility] Comment: <20 Negative 20-25 Borderline Positive >25 Positive Interpretation Autoimmune Antibody [facility] Comment: Borderline results have been retested. Rn Hospice states that if results are still borderline, the test sample has no significant antibodies. BLOOD SPECIMEN / Unknown 06/05/2009 1:55 PM MANAGER ELECTRICAL Narrative Resulting Agency Comment Performed By [facility] [address] [place] [address] Bobby Marcano MD LAB - CHEMISTRY ORD [employer] Performing Organization Address City/[facility]/ZIP Co de Phone Number [facility] * GAS LINE INSTALLER SUPERVISOR ANTIBODY (06/05/2009 1:55 PM MANAGER ELECTRICAL) [facility] GAS LINE INSTALLER SUPERVISOR Antibody 5.26 SEE BELOW [facility] Comment: <20 Negative 20-25 Borderline Positive >25 Positive Interpretation Autoimmune Antibody [facility] Comment: Borderline results have been retested. Rn Hospice states that if results are still borderline, the test sample has no significant antibodies. BLOOD SPECIMEN / Unknown 06/05/2009 1:55 PM MANAGER ELECTRICAL Narrative Resulting Agency Comment Performed By [facility] Bobby Marcano MD LAB - CHEMISTRY ORD ERABLES [facility] * RHEUMATOID FACTOR BLOOD QUANTITATIVE (06/05/2009 1:55 PM MANAGER ELECTRICAL) Rheumatoid Factor 8.3 <60.0 IU/ml [facility] BLOOD SPECIMEN / Unknown 06/05/2009 1:55 PM MANAGER ELECTRICAL Narrative Resulting Agency Comment Performed By [facility] [address] [place] [address] Bobby Marcano MD LAB - CHEMISTRY ORD ERABLES Performing Organization Address City/[facility]/ZIP Co de Phone Number [facility] * DIANA BLOOD TITER (06/05/2009 1:55 PM MANAGER ELECTRICAL) DIANA Positive, less than 1 to 40 Negative [facility] DIANA Pattern No pattern detected. [facility] BLOOD SPECIMEN / Unknown 06/05/2009 1:55 PM MANAGER ELECTRICAL Narrative Resulting Agency Comment Performed By [facility] [address] [place] [address] Bobby Marcano MD LAB - CHEMISTRY ORD ERABLES Performing Organization Address [facility]/ZIP Co de Phone Number [facility] * DIANA BLOOD SCREEN (06/05/2009 1:55 PM MANAGER ELECTRICAL) DIANA Positive, reflexed to Titer Negative [facility] Comment DIANA [facility] Comment: Titer will be performed on all positive results. BLOOD SPECIMEN / Unknown 06/05/2009 1:55 PM MANAGER ELECTRICAL Narrative Resulting Agency Comment Performed By [facility] [address] [place] [address] Bobby Marcano MD LAB - CHEMISTRY ORD ERABLES Performing Organization Address City/[facility]/ZIP Co de Phone Number [facility] * HLA TYPING B27 (06/05/2009 1:55 PM MANAGER ELECTRICAL) HLA-B27 Negative Negative [facility] Comment Ref Lab CARD INAL [facility] Comment: TEST INFORMATIONF HLA-B27 HLA-B27 is a serologically defined allele of the human HLA-B locus. The presence of the HLA-B27 antigen is strongly associated with ankylosing spondylitis and related disorders. The performance characteristics of this test were determined by [facility]. BLOOD SPECIMEN / Unknown 06/05/2009 1:55 PM MANAGER ELECTRICAL Narrative Resulting Agency Comment Performed By [facility] [address] [place], [place] [id number] Bobby Marcano MD LAB - CHEMISTRY ORD ERABLES Performing Organization Address [facility] de Phone Number [facility] * SS-B ANTIBODY (06/05/2009 1:55 PM MANAGER ELECTRICAL) SS-B Antibody 1.38 SEE BELOW EU [facility] Comment: <20 Negative 20-25 Borderline Positive >25 Positive Interpretation Autoimmune Antibody [facility] Comment: Borderline results have been retested. Rn Hospice states that if results are still borderline, the test sample has no significant antibodies. BLOOD SPECIMEN / Unknown 06/05/2009 1:55 PM MANAGER ELECTRICAL Narrative Resulting Agency Comment Performed By [facility] [address] [place] [address] Bobby Marcano MD LAB - CHEMISTRY ORD ERABLES Performing Organization Address [facility] de Phone Number [facility] * SS-A ANTIBODY (06/05/2009 1:55 PM MANAGER ELECTRICAL) SS-A Antibody 1.66 SEE BELOW EU [facility] Comment: <20 Negative 20-25 Borderline Positive >25 Positive Interpretation Autoimmune Antibody [facility] [facility] Comment: Borderline results have been retested. [facility] states that if results are still borderline, the test sample has no significant antibodies. BLOOD SPECIMEN / Unknown 06/05/2009 1:55 PM MANAGER ELECTRICAL Narrative Resulting Agency Comment Performed By [facility] [address] [place] [address] Bobby Marcano MD LAB - CHEMISTRY ORD ERABLES Performing Organization Address [facility]/ZIP Co de Phone Number [facility] * SCL70 ANTIBODY (06/05/2009 1:55 PM MANAGER ELECTRICAL) SCL-70 Antibody 3.48 SEE BELOW CARD INAL [facility] Comment: <20 Negative 20-25 Borderline Positive >25 Positive Interpretation Autoimmune Antibody [facility] Comment: Borderline results have been retested. [facility]n Hosp[facility] states that if results are still borderline, the test sample has no significant antibodies. BLOOD SPECIMEN / Unknown 06/05/2009 1:55 PM MANAGER ELECTRICAL Narrative Resulting Agency Comment Performed By [facility] [address] [place] [address] Bobby Marcano MD LAB - CHEMISTRY ORD ERABLES Performing Organization Address [facility] Co de Phone Number [facility] * DNA ANTIBODY DOUBLE STRAND (06/05/2009 1:55 PM MANAGER ELECTRICAL) dsDNA Antibody 12.46 SEE BELOW IU [facility] Comment: <25 Negative 25-30 Borderline Positive 30-60 Low Positive 60-200 Positive >200 Strong Positive Comment dsDNA [facility] Comment: dsDNA antibodies are screened using an SCOTT assay. Positive results are reflexed to titer by IFA. BLOOD SPECIMEN / Unknown 06/05/2009 1:55 PM MANAGER ELECTRICAL Narrative Resulting Agency Comment Performed By [facility] [address] [place] [address] Bobby Marcano MD LAB - HEMATOLOGY OR DERABLES [facility] * ALDOLASE (06/05/2009 1:55 PM MANAGER ELECTRICAL) Aldolase 5.0 3.3 - 9.7 U/L [facility] BLOOD SPECIMEN / Unknown 06/05/2009 1:55 PM MANAGER ELECTRICAL Narrative Resulting Agency Comment Performed By [facility] [address] [place] [id number] Bobby Marcano MD LAB - CHEMISTRY ORD ERABLES Performing Organization Address City/[facility]/ZIP Co de Phone Number [facility] * CYCLIC CITRUL PEPTIDE AB IGG (CCP) (06/05/2009 1:55 PM MANAGER ELECTRICAL) Cyclic Citrullinated Peptide Antibody IgG 0.00 <5.0 units [facility] BLOOD SPECIMEN / Unknown 06/05/2009 1:55 PM MANAGER ELECTRICAL Narrative Resulting Agency Comment Performed By [facility] [address] [place] [address] Bobby Marcano MD LAB - CHEMISTRY ORD ERABLES Performing Organization Address [facility] Co de Phone Number [facility] * (ABNORMAL) CK BLOOD (06/05/2009 1:55 PM MANAGER ELECTRICAL) CK 30(L) 50 - 240 Units/L [facility] Specimen Type/Condition NVH [facility] BLOOD SPECIMEN / Unknown 06/05/2009 1:55 PM MANAGER ELECTRICAL Bobby Marcano MD LAB - CHEMISTRY ORD ERABLES Performing Organization Address [facility]/ZIP Co de Phone Number [facility] Care Teams Experimental Display Builder Relationship Specialty Start Date End Date Beatriz Savage MD PCP - General 10/18/15
--- OUTSIDE RECORDS SUMMARY | 2024-06-22 02:15 | XMS_ITS | Referral Summary ---
Author Organization [facility] Address [address] [place] [address] Care Team Providers Care Assessment Consultant Name Role Phone Beatriz Savage MD Primary Care Provider [phone] Source Comments [facility],non-owned Affiliates and Associated Physician Practices is amultiple site organization consisting of ambulatory clinics and hospital sitesin [place], [place], [place] and [place]. This disclosure is being madepursuant to the Care Everywhere program and may not contain all information available regarding this patient. Last updated 18.[facility] Encounters Date Type Department Care Team Description 06/14/2024 Travel 06/14/2024 9:15 AM SENIOR MARKETING DATA ANALYST Office Visit [facility] [place] [address] Gerrado Rodriguez MD MIRA (obstructive sleep apnea) (Primary Dx); Choking episode occurring at night; Globus sensation; Gastroesophageal reflux disease without esophagitis; Laryngopharyngeal reflux (LPR) from Last 3 Months Allergies No known active allergies Medications * Be aware that medications may not be up to date on this document. Alwaysverify current medications with the patient. Medication Sig Dispensed Refills Start Date End Date Status Prenat w/o [id number] WEBB (+DHA) 27-1 & 250 MG MISC Take 1 Tab by mouth once daily 30 Each 03/28/2015 Active Additional Information Patient not taking.Reported on 12/09/2022 albuterol HFA (PROVENTIL;VENTOL IN;PROAIR) 108 (90 BASE) MCG/ACT inhaler Inhale 2 Puffs by mouth every 6 hours as needed 1 Inhaler 5 03/28/2015 Active Additional Information Patient not taking.Reported on 06/14/2024 ferrous sulfate 325 (65 FE) MG tablet Take 1 Tab by mouth daily with breakfast 30 Tab 0 10/27/2015 Active Additional Information Patient not taking.Reported on 12/09/2022 sertraline (Zoloft) 100 MG tablet Take 1 (one) tablet by mouth once daily Active predniSONE (Deltasone) 20 MG tablet Take 1 (one) tablet by mouth as directed 06/06/2022 Active penicillin v potassium (Veetids) 500 MG tablet Take 1 (one) tablet by mouth 2 times daily 05/27/2022 Active ondansetron (Zofran) 8 MG tablet Take 1 (one) tablet by mouth as directed Active meclizine (Antivert) 25 MG tablet Take 1 (one) tablet by mouth 3 times daily as needed Active Vienva 0.1-20 MG-MCG tablet Take 1 (one) tablet by mouth once daily 10/03/2022 Active fluticasone propionate (Flonase) 50 MCG/ACT nasal spray Nunica 2 (two) sprays into each nostril as needed Active norgestimate-ethi nyl estradiol (Sprintec 28) 0.25-35 MG-MCG tablet Take 1 (one) tablet by mouth once daily Active Etonogestrel (NEXPLANON SC) Inject 1 Each subcutaneously as directed Active acetaminophen (Tylenol) 500 MG tablet Take 2 (two) tablets by mouth every 6 hours as needed for Pain or Headache Maximum allowable Acetaminophen amount = 4 Grams (4000 mg) / 24 hours. 12/17/2022 Active Additional Information Patient not taking.Reported on 01/02/2023 ibuprofen (Motrin) 600 MG tablet Take 1 (one) tablet by mouth every 6 hours as needed for Pain 30 tablet 12/17/2022 Active Additional Information Patient not taking.Reported on 01/02/2023 oxyCODONE, immediate release, (Roxicodone) 5 MG tabletIndications :Recurrent acute tonsillitis,Tonsi llar hypertrophy Take 1 (one) tablet by mouth every 6 hours as needed for Pain 40 tablet 12/17/2022 Active Additional Information Patient not taking.Reported on 01/02/2023 sertraline (Zoloft) 50 MG tablet Take 1 (one) tablet by mouth once daily 06/08/2024 Active hydrOXYzine HCl (Atarax) 10 MG tablet Take 1 (one) tablet by mouth 4 times daily as needed for Itching Active omeprazole (PriLOSEC) 40 MG capsuleIndication s:Gastroesophagea l reflux disease without esophagitis,Laryn gopharyngeal reflux (LPR) Take 1 (one) capsule by mouth once daily 30 capsule 06/14/2024 Active Active Problems Patient Care Coordination No te Formatting of this note migh t be different from the original. Patient phone number [phone] [facility] Problem Noted Date Diagnosed Date Encounter for surveillance of injectable contrac eptive 03/05/2016 Asthma 01/20/2014 Overview (03/28/2015): Albuterol PRN Met with Pharmacist 03/28/2015 History of depression 01/20/2014 Overview (03/28/2015): In G1; no meds this . 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 No insurance, unsure about testing due to cost. Scoliosis (and kyphoscoliosis), idiopathic 04/25 Overview (02/09/2021): With juaquin in place Will need anesthesiology consult 3rd trimester IMO 2020 Family history of congenital anomalies Threatened labor at term Resolved Problems Problem Noted Date Diagnosed Date Resolved Date 10/16/2015 12/09/2022 34 weeks gestation of 09/19/2015 12/09/2022 Screening, , for ma lformation by ultrasound 06/16/2015 07/12/2015 Chronic hypertension 04/17/2015 016 Overview (04/17/2015): Patient was diagnosed with hypertension in 2nd trimester of G1. Never required medication. No HTN since that time. Will not obtain 24 hour urine given that the likelihood of HTN is very low. 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 (FLUCELVAX TRIVALENT; 6MO+), 0.5 ML (CCIIV3) 02/07/2014 INFLUENZA VACCINE, QUADR. (F LUZONE; FLULAVAL; FLUARIX; AFLURIA QUADRIVALENT; 6MO+), 0.5 ML (IIV4) 01/14/2017 TDAP (7yrs+) 03/21/2014 Social History Tobacco Use Types Packs/Day Years [...] Comments Blood Pressure 126/82 06/14/2024 9:07 AM SENIOR MARKETING DATA ANALYST Pulse 71 06/14/2024 9:07 AM SENIOR MARKETING DATA ANALYST Temperature 36.4 C (97.5 F) 12/17/2022 3:47 PM CDT Respiratory Rate 16 12/17/2022 5:01 PM CDT Oxygen Saturation 95% 12/17/2022 5:01 PM CDT Inhaled Oxygen Concentration 100% 04/27/2010 7 :00 AM SENIOR MARKETING DATA ANALYST Weight 109.3 kg (241 lb) 06/14/2024 9:07 AM SENIOR MARKETING DATA ANALYST Height 154.9 cm (5' 1 ) 06/14/2024 9:07 AM SENIOR MARKETING DATA ANALYST Body Mass Index 45.54 06/14/2024 9:07 AM SENIOR MARKETING DATA ANALYST Functional Status Functional Status Response Date of Assess ment Is person deaf or have serious hearing difficult y? No 12/17/2022 Is person blind or have serious difficulty seein g? No 12/17/2022 Does person have serious dif ficulty walking/climbing stairs? No 12/17/2022 Does person have difficulty dressing/bathing? No 12/17/2022 Does person have difficulty doing errands alone? No 12/17/2022 Cognitive Status Response Date of Assessm ent Does person have difficulty concentrating/remembering/making decisions? No 12/17/2022 Plan of Treatment Upcoming Encounters Date Type Department Care Team (Late st Contact Info) Description 09/13/2024 9:15 AM CDT Office Visit [facility] - ENT [address] [place] [id number] Gerardo Rodriguez MD [facility] [place] [address] 09/23/2024 10:20 AM CDT Office Visit [facility] - Sleep Services [facility] [place] [address] Twila Ramsey APNP-MULTISENSOR INTELLIGENCE OFFICER [address] OF PULMONARY/[place] [address] Procedures Procedure Name Priority Date/Time Associated Diagnosis Comments CYTOLOGY CERVICAL/VAG PAP SCREEN THIN PREP Routine 03/28/2015 11:56 AM SENIOR MARKETING DATA ANALYST HIV-1 HIV-2 ANTIBODY + HIV P24 AG PANEL Routine 03/28/2015 11:55 AM SENIOR MARKETING DATA ANALYST from Last 3 Months or Most Recently Relevant to Health Maintenance Results * CYTOLOGY CERVICAL/VAG SCREEN THIN PREP (03/28/2015 11:56 AM SENIOR MARKETING DATA ANALYST) ThinPrep Pap See Scanned Report 04/12/2015 10:42 AM SENIOR MARKETING DATA ANALYST [facility] NON INTERF Miscellaneous samples (specimen) ENTIRE ENDOCERVIX / Unknown Collection / Unknown 03/28/2015 11:56 AM SENIOR MARKETING DATA ANALYST 03/29/2015 11:52 AM SENIOR MARKETING DATA ANALYST [facility] - PATHOLOGY/CY TOLOGY ORDERABLES Performing Organization Address City/[facility]/ZIP Co de Phone Number [facility] NON INTERF [address] * HIV-1 HIV-2 ANTIBODY + HIV P24 AG PANEL (03/28/2015 11:55 AM SENIOR MARKETING DATA ANALYST) HIV1/2 Ab + P24 Ag Non Reactive Non Reactive 03/28/2015 4:56 PM SENIOR MARKETING DATA ANALYST [facility] Blood BLOOD SPECIMEN / Unknown Venipuncture / Unknown 03/28/2015 11:55 AM SENIOR MARKETING DATA ANALYST 03/28/2015 1:03 PM SENIOR MARKETING DATA ANALYST Narrative [facility] - 03/28/2015 4:56 PM SENIOR MARKETING DATA ANALYST No Laboratory evidence of HIV infection. [facility] - CHEMISTRY OR DERABLES [facility] [address] [place] [address] from Last 3 Months or Most Recently Relevant to Health Maintenance Advance Directives * Full Code (Latest Code Status on File) Date Activated Date Inactivated Comments 10/25/2015 5:56 PM 10/27/2015 3:32 PM * Full Code Date Activated Date Inactivated Comments 10/25/2015 5:13 PM 10/25/2015 5:56 PM * Full Code Date Activated Date Inactivated Comments 10/18/2015 10:53 PM 10/19/2015 1:27 AM * Full Code Date Activated Date Inactivated Comments 10/16/2015 3:26 AM 10/16/2015 6:21 AM * Full Code Date Activated Date Inactivated Comments 07/06/2015 9:51 PM 07/07/2015 12:47 AM Care Teams Assessment Consultant Relationship Specialty Start Date End Date Beatriz Savage MD PCP - General 10/18/15
--- OUTSIDE RECORDS SUMMARY | 2024-06-22 02:15 | XMS_ITS | Data Portability ---
Author Organization [facility] Ladonna Chapman Address [address] [place] [address] Care Team Providers Care Character Impersonator Name Role Phone MALIKA SAVAGE Primary Care Provider [phone] Assessment No assessment recorded. Plan of Treatment Reminders Order Date Submit Date Provider Last Modified By Organization Details Last Modified Time Details Appointments None recorded. Lab HbA1c (hemoglobin A1c), blood 2023 024 [email or web address] In-Office Order, Internal Use Only DO Not Attach Compendium DO Not Attach Compendium, Do Not Delete/merge, [id number] 18:10:50 influenza virus A + B + SARS-CoV-2 (COVID19) Ag panel, rapid IA, upper respiratory specimen 2023 024 [email or web address] In-Office Order, Internal Use Only DO Not Attach Compendium DO Not Attach Compendium, Do Not Delete/merge, [id number] 19:17:47 rapid strep group A, throat 2023 024 [email or web address] In-Office Order, Internal Use Only DO Not Attach Compendium DO Not Attach Compendium, Do Not Delete/merge, [id number] 19:17:47 Referral otolaryngol ogist referral - 26yo F with tonsillar hypertrophy and MIRA symptoms. Please evaluate and treat. 2022 [facility]23 [facility], [address] [facility], [address] Care [address], [place], [address], 3 13:14:26 Procedures None recorded. Surgeries None recorded. Imaging None recorded. Medication Orders Virtussin AC 10 mg-100 mg/5 mL oral liquid 2021 [id number], [address], [place], [address], 3 22:22:19 prednisone 20 mg tablet 2022 023 [address] [id number], [address], [place], [address], 3 22:22:58 hydroxyzine HCl 25 mg tablet 2023 024 [id number], [address] [place], [address], 4 18:13:20 sertraline 50 mg tablet 2023 024 [id number], [address], [place], [address], 4 18:13:21 pseudoephed rine 60 mg tablet 2023 024 [id number], [address] [place], [address], 4 16:49:29 Low-Ogestre l (28) 0.3 mg-30 mcg tablet 2023 024 [id number], [address], [place], [address], 4 16:53:28 Patient TargetsNo targets recorded. 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 Please evaluate and treat. Referring Physician: Malika Savage, Critical Systems Technician, Encounter Date: 07/02/2022 Results Created Date Observation Date Name Description Value Unit Range Abnormal Flag Note LastModifiedBy Organization Detail LastModifiedTime 03/09/2003/09/2024 HbA1c (hemo globi n A1c), blood HbA1c 5.4 Not Available In-Office Order Internal Use Only DO Not Attach Compendium DO Not Attach Compendium, Do Not Delete/merge, [id number] 03/09/2024 15:21:53 04/02/2004/02/2024 rapid strep group A, throa t Strep negati ve Not Available In-Office Order Internal Use Only DO Not Attach Compendium DO Not Attach Compendium, Do Not Delete/merge, [id number] 04/02/2024 17:32:10 04/02/20 24 04/02/2024 influ christine virus A + B + SARS- CoV-2 (COVI D19) Ag panel , rapid IA, upper respi rator y speci men Flu A negati ve Not Available In-Office Order Internal Use Only DO Not Attach Compendium DO Not Attach Compendium, Do Not Delete/merge, [id number] 04/02/2024 17:32:05 04/02/20 24 04/02/2024 influ christine virus A + B + SARS- CoV-2 (COVI D19) Ag panel , rapid IA, upper respi rator y speci men Flu B negati ve Not Available In-Office Order Internal Use Only DO Not Attach Compendium DO Not Attach Compendium, Do Not Delete/merge, [id number] 04/02/2024 17:32:05 04/02/20 24 04/02/2024 influ christine virus A + B + SARS- CoV-2 (COVI D19) Ag panel , rapid IA, upper respi rator y speci men Rapid SARS CoV 2 Ag, QL IA, respiratory specimen negati ve Not Available In-Office Order Internal Use Only DO Not Attach Compendium DO Not Attach Compendium, Do Not Delete/merge, [id number] 04/02/2024 17:32:05 Result Notes None recorded. Problems Name Problem SNOMED Code Status Onset Date Resolution Date Notes Provider Name and Address Organization Details Recorded Time Vitamin D deficiency 42391787 Active 2019 Not Available [facility] 13:38:20 75315610 Completed 202001/29/2021 Malika Savage MD Attn: Accounting ,[address] [place], [address] , [facility] - [facility] 12:31:47 Subcortica l hemorrhage 62701965 Completed Malika Savage MD Attn: Accounting ,[address] [place], [address] , [facility] - [facility] 12:31:44 Obesity 537370321 Completed Malika Savage MD Attn: Accounting ,[address] [place], [address] , [facility] - [facility] 12:31:44 Depressive disorder 81029075 Active Not Available [facility] 13:38:20 Problem Notes None recorded. Procedures Surgical History Date Name Laterality Status Provider Name and Address Organization Details Recorded Time 4 Control Implant Removal completed Malika Savage MD Attn: Accounting, [place], [address], [place] [facility] 04/03/2024 16:52:02 3 Skin Tag Removal completed Malika Savage MD Attn: Accounting,[address] [place], [address], [facility] 07/02/2022 22:49:25 Back Surgery completed Vi Martinez Attn: Accounting,[address] [place], [address], [place] [facility] 09/08/2014 09:56:41 Imaging Results None recorded. Procedure Notes None recorded. Medical Equipment None Reported. Allergies No known drug allergies Medications Name Sig Start Date Stop Date Status Note LastModified by Organization Details LastModified Time sleep aid tab 25mg 08/16 completed Not Available Not Available Not Available cyclobenzap rine 10 mg tablet TAKE 1 TABLET BY MOUTH 3 TIMES A DAY NEEDED FOR MUSCLE SPASMS 06/28 completed Not Available Not Available Not Available amoxicillin 500 mg capsule TAKE 1 CAPSULE BY MOUTH TWICE A DAY 03/09 completed Not Available Not Available Not Available acetaminoph en 325 mg tablet 07/02 completed Not Available Not Available Not Available venlafaxine ER 75 mg capsule,ext ended release 24 hr Take 1 capsule every day by oral route. 10/18 completed Not Available Not Available Not Available hydrocodone 5 mg-acetamin ophen 325 mg tablet TAKE 1 TABLET BY MOUTH EVERY 6 HOURS ASNEEDED FOR SEVERE PAIN. 05/15 completed Not Available Not Available Not Available ondansetron HCl 8 mg tablet 06/28 completed Not Available Not Available Not Available ondansetron HCl 4 mg tablet 01/14 completed Not Available Not Available Not Available prednisone 20 mg tablet TAKE 2 TABLETS BY MOUTH EVERY DAY FOR 5 DAYS 07/02 completed Not Available Not Available Not Available sertraline 100 mg tablet TAKE 1 TABLET BY MOUTH EVERY DAY 06/28 completed Not Available Not Available Not Available penicillin V potassium 500 mg tablet TAKE 1 TABLET BY MOUTH TWICE A DAY 07/02 completed Not Available Not Available Not Available sulfamethox azole 800 mg-trimetho prim 160 mg tablet 01/14 completed Not Available Not Available Not Available triamcinolo ne acetonide 0.1 % topical cream APPLY A THIN LAYER TO THE AFFECTED AREA(S) BY TOPICAL ROUTE 2 TIMES PER DAY 07/02 completed Not Available Not Available Not Available meloxicam 7.5 mg tablet 10/30 completed Not Available Not Available Not Available amoxicillin 875 mg tablet TAKE 1 TABLET BY MOUTH TWICE A DAY FOR 10 DAYS 03/09 completed Not Available Not Available Not Available meclizine 25 mg tablet TAKE 1 TABLET BY MOUTH THREE TIMES A DAY NEEDED 06/09 completed Not Available Not Available Not Available benzonatate 100 mg capsule Take 1 capsule 3 times a day by oral route for 10 days. 09/07 completed Not Available Not Available Not Available ranitidine 150 mg tablet 10/30 completed Not Available Not Available Not Available prednisone 50 mg tablet TAKE 1 TABLET BY MOUTH ONCE DAILY 05/15 completed Not Available Not Available Not Available lidocaine 5 % topical patch APPLY 1 PATCH TO SKIN DAILY (MOST PAINFUL AREA) LEAVE ON FOR 12 HOURS THEN REMOVE FOR 12 HOURSR 05/15 completed Not Available Not Available Not Available promethazin e 25 mg tablet TAKE 1 TABLET BY MOUTH EVERY 6 HOURS NEEDED FOR NAUSEA AND VOMITING 01/11 completed Not Available Not Available Not Available polymyxin B sulfate 10,000 unit-trimet hoprim 1 mg/mL eye drops INSTILL 1 DROP INTO AFFECTED EYE(S) EVERY 6 HOURS FOR 10 DAYS 01/11 completed Not Available Not Available Not Available betamethaso ne dipropionat e 0.05 % topical cream APPLY A THIN LAYER TO THE AFFECTED AREA(S) BY TOPICAL ROUTE twice DAILY to hand for no more than 2 weeks in a row 08/16 completed Not Available Not Available Not Available docusate sodium 100 mg capsule 07/02 completed Not Available Not Available Not Available hydroxyzine HCl 25 mg tablet TAKE 1 TABLET EVERY DAY BY ORAL ROUTE NEEDED. active Not Available Not Available No t Available codeine 10 mg-guaifene sin 100 mg/5 mL oral liquid TAKE 10 MLS BY MOUTH EVERY 6 HOURS NEEDED 07/02 completed Not Available Not Available Not Available Low-Ogestre l (28) 0.3 mg-30 mcg tablet Take 1 tablet every day by oral route. active Not Available Not Available No t Available ergocalcife rol (vitamin D2) 1,250 mcg (50,000 unit) capsule TAKE 1 CAPSULE WEEKLY FOR 8 WEEKS 05/15 completed Not Available Not Available Not Available ibuprofen 600 mg tablet TAKE 1 TABLET BY MOUTH 4 TIMES A DAY NEEDED FOR FEVER OR PAIN 07/02 completed Not Available Not Available Not Available ondansetron 4 mg disintegrat ing tablet 01/14 completed Not Available Not Available Not Available cefdinir 300 mg capsule Take 1 capsule every 12 hours by oral route for 7 days. 09/07 completed Not Available Not Available Not Available fluticasone propionate 50 mcg/actuati on nasal spray,suspe nsion USE 2 SPRAYS IN EACH NOSTRIL EVERY DAY AT BEDTIME 07/02 completed Not Available Not Available Not Available pseudoephed rine 60 mg tablet Take 1 tablet every 6 hours by oral route as needed for 7 days. 2023 active Not Available Not Available Not Avai lable sertraline 50 mg tablet TAKE 1 TABLET BY MOUTH EVERY DAY active Not Available Not Available No t Available dicyclomine 10 mg capsule 06/09 completed Not Available Not Available Not Available loratadine 10 mg tablet TAKE 1 TABLET BY MOUTH EVERY DAY 06/28 completed Not Available Not Available Not Available amoxicillin 875 mg-potassiu m clavulanate 125 mg tablet TAKE 1 TABLET BY MOUTH TWICE A DAY 03/09 completed Not Available Not Available Not Available Ventolin HFA 90 mcg/actuati on aerosol inhaler 06/28 completed Not Available Not Available Not Available neomycin-po lymyxin-hyd rocort 3.5 mg-10,000 unit/mL-1 % ear drops,susp INSTILL 2 DROPS INTO BOTH EARS 4 TIMES DAILY 03/09 completed Not Available Not Available Not Available escitalopra m 10 mg tablet TAKE 1 TABLET BY MOUTH ONCE DAILY AFTER COMPLETIN G 5 MG TABLETS 07/02 completed Not Available Not Available Not Available bupropion HCl XL 150 mg 24 hr tablet, extended release Take 1 tablet every day by oral route. 09/07 completed Not Available Not Available Not Available escitalopra m 5 mg tablet 07/02 completed Not Available Not Available Not Available nitrofurant oin monohydrate /macrocryst als 100 mg capsule 10/30 completed Not Available Not Available Not Available cholecalcif zia (vitamin D3) 10 mcg/mL (400 unit/mL) oral drops 07/02 completed Not Available Not Available Not Available Vitamin D3 50 mcg (2,000 unit) capsule Take 1 capsule every day by oral route. 06/28 completed Not Available Not Available Not Available vits 96-ferrous fumarate 27 mg iron-folic acid 800 mcg tablet 10/30 completed Not Available Not Available Not Available Vitamins Plus Low Iron 27 mg iron-1 mg tablet TAKE 1 TABLET BY MOUTH EVERY DAY 07/02 completed Not Available Not Available Not Available Vienva 0.1 mg-20 mcg tablet TAKE 1 TABLET BY MOUTH EVERY DAY 03/09 completed Not Available Not Available Not Available Zahraa 0.25 mg-35 mcg tablet TAKE 1 TABLET BY MOUTH EVERY DAY 07/02 completed Not Available Not Available Not Available Vitals Date Recorded Body height Provider Name an d Address Organization Details Last Updated DateTime 01/11/2022 157.48 cm Marion Deleon RN [facility] 2 09:45:12 Date Recorded Body height Body mass index (BMI) Body weight Provider Name and Address Organization Details Last Updated DateTime 06/06/2022 157.48 cm 38.4 kg/m2 91947.4 g Claire Pearce MA [facility] 06/06/2022 14:03:47 Date Recorded Body height Body mass index (BMI) Body weight Body temperature Heart rate Oxygen saturation Oxygen saturation in Arterial blood by Pulse oximetry Systolic blood pressure Diastolic blood pressure Provider Name and Address Organization Details Last Updated DateTime 3 157.48 cm 39.5 kg/m2 39372.9 5 g 97.9 [degF] 91 /min 97 % 97 % 122 mm[Hg] 86 mm[Hg] Claire Pearce MA [facility] 3 12:20:30 Date Recorded Body height Body mass index (BMI) Body weight Body temperature Heart rate Systolic blood pressure Diastolic blood pressure Provider Name and Address Organization Details Last Updated DateTime 4 157.48 cm 43.3 kg/m2 603656. 39 g 97.9 [degF] 87 /min 122 mm[Hg] 84 mm[Hg] Mary Taveras MA [facility] 4 14:12:59 Date Recorded Body height Body mass index (BMI) Body weight Body temperature Heart rate Oxygen saturation Oxygen saturation in Arterial blood by Pulse oximetry Systolic blood pressure Diastolic blood pressure Provider Name and Address Organization Details Last Updated DateTime 4 157.48 cm 43.1 kg/m2 588399. 01 g 98.1 [degF] 88 /min 98 % 98 % 119 mm[Hg] 85 mm[Hg] Mala Bartholomew [place] [facility] 4 17:18:01 Social History Question Answer Notes LastModified by Organizat ion Details LastModified Time Tobacco Smoking Status Never Smoker Angella Ma santhosh [place] [facility] 09/01/2014 08:52:54 Do You Or Have You Ever Used E-cigarettes Or Vape? Never Used Electronic Cigarettes [email or web address] Information not available 08/17/2019 What Was The Date Of Your Most Recent Tobacco Screening? 03/09/2024 [email or web address] Information not available 03/09/2024 Do You Or Have You Ever Used Smokeless Tobacco? Never Used Smokeless Tobacco Information not available 09/14/2019 Do You Use Any Illicit Or Recreational Drugs? No Information not available 08/01/2020 Do You Or Have You Ever Used Any Other Forms Of Tobacco Or Nicotine? No Information not available 08/01/2020 Sex: Unknown Functional Status None recorded. Mental Status None recorded. Family History Relationship Description Onset Age of this Age Resolved Age Notes LastModified by Organization Details LastModified Time Mother Diabetes mellitus [email or web address] Not available 2014 10:05:02 Medical History Condition Response Depression Y Gynecological HistoryNo gynecological history recorded. Obstetrics History GPAL:G 3 P 3 0 0 2 Type Value Multiple Births 0 Full Term 3 Induced 0 Spontaneous 0 Premature 0 Living 2 Ectopics 0 Total 3 Immunizations Vaccine Type Date Status Note Provider Nam e and Address Organization Details Recorded Time COVID-19, mRNA, LNP-S, PF, 100 mcg/0.5mL dose or 50 mcg/0.25mL dose 1 completed Not Available [facility] 01/13/2021 11:58:56 Influenza, split virus, quadrivalent, PF 7 completed Not Available [facility] 05/29/2019 02:50:27 Influenza, split virus, quadrivalent, preservative 0 completed ANNA Kaur [place] [facility] 02/07/2020 11:50:54 Tdap 1 completed Mala trevizo [place] 11/10/2020 12:22:11 MMR 1 completed Mala trevizo [place] [facility] 04/06/2021 11:55:16 Influenza, split virus, trivalent, PF 4 completed Mary Taveras MA [place], [place] [facility] 03/15/2024 13:39:33 Past Encounters Encounter ID Performer Location Encounter Start Date Encounter Closed Date Diagnosis/Indication Diagnosis SNOMED-CT Code Diagnosis ICD10 Code Diagnosis Note [id number] MD [facility] ([address]) [address] [facility] [place] [address] 09/01/2014 08:41:06 09/02/2014 08:55:06 Gynecologic examination 43297099 -Pap collected, no abnormalit y on exam -Using Nexplanon for contracept ion Pain in pelvis 26087944 -Symphysis pain and muscle tightness with popping and discomfort -Women's PT referral Goiter [id number] -asymptom a tic neck mass -Check thyroid labs and US to start, referral based on results Depressive disorder 64853174 -Recurrent depression , post-partu m -Restart sertraline , use, risks, and side effects discussed [id number] Cl[facility] ([address]) [address] [facility] [place] [address] 03/08/2015 12:08:44 03/09/2015 08:45:39 Amenorrhea 96656393 N91.2 [id number] MD [facility] ([address]) [address] [facility] [place] [address] 12/13/2016 14:34:20 12/27/2016 17:49:32 Depressive disorder 35087977 F32.9 -Recurrent depression -Restart sertraline , use, risks, and side effects discussed Uses oral contraception 2020819 Z30.41 Anemia 077486797 D64.9 -h/o anemia with . recheck [id number] MD [facility] ([address]) [address] [facility] [place] [address] 01/14/2017 11:02:23 01/14/2017 14:08:54 Generalized anxiety disorder 99387650 F41.1 -Continued increased dose of sertraline -Letty french recommende d- given hand-out of [facility] counselors -Hydroxyzi ne prn sleep and panic attack-F/U 2 months Active or passive immunization 224395089 Z23 [id number] MD [facility] ([address]) [address] [facility] [place] [address] 10/30/2017 14:04:40 11/10/2017 14:25:16 Depressive disorder 28783219 F32.9 -Recurrent depression -Stop sertraline and start Wellbutrin -Use and common side effects discussed- F/u 6-8 weeks-Coun saulo ruiz [id number] MD [facility] ([address]) [address] [facility] [place] [address] 05/19/2018 09:28:45 05/19/2018 12:44:18 Acute sinusitis 43088375 J01.90 -Failed Augmentin, try cefdinir-S upportive care Acute left otitis media 047767466 H66.92 -Failed Augmentin, try cefdinir [id number] MD [facility] ( [address]) [address] [facility] [place] [address] 09/03/2018 14:47:01 09/08/2018 09:10:24 Contraception care management 617717537 Z30.9 -Restart OCP-Use, risks, benefites, and alternativ es reviewed Depressive disorder 3548 9007 F32.9 -Recurrent depression -Restart sertraline -Use and common side effects discussed- F/u 6-8 weeks-Coun saulo ruiz Allergic rhinitis 453145 04 J30.9 [id number] MD [facility] ( [address]) [address] [facility] [place] [address] 04/27/2019 14:33:59 04/27/2019 15:03:07 Gynecologic examination 29987016 Z01.419 -Pap collected, no abnormalit y on exam-Renew OCP-Health y weight, diet, and exercise reviewed-F /U annual and as needed Contact dermatitis 82451 004 L25.9 -R hand Contracept ion care management 576211474 Z30.9 -Renew OCP-Use, risks, benefites, and alternativ es reviewed [id number] MD Uniuqe [facility] ([address]) [address] [place] [address] 08/17/2019 11:13:32 08/17/2019 11:57:32 Benign paroxysmal positional vertigo 213952432 H81.13 -Meclizine -Mailed home exercises- No red flag symptoms 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 -Restart anti-depre ssant, SNRI-Use and common side effects reviewed-F /U scheduled 4-6 weeks [id number] MD [facility] ([address]) [address] [place] [address] 09/14/2019 13:37:53 09/16/2019 08:10:06 Depressive disorder 10051851 F32.9 -Recurrent depression -Continue venlafaxin e-Use and common side effects discussed- Can increase to 150mg in 2 more weeks if desired-F/ u 4-6 weeks-Jacques ruiz [id number] MD [facility] ([address]) [address] [place] [address] 10/19/2019 15:25:08 10/19/2019 15:50:30 Depressive disorder 31284490 F32.9 -Recurrent depression -Stop venlafaxin e 75mg-Allow 1-2 week wash out-Start sertraline at 25, up to 50 in 1 week-Use and common side effects discussed- F/u 6 weeks [id number] MD [facility] ([address]) [address] [place] [address] 02/07/2020 11:06:01 02/08/2020 09:53:39 Pain of left hip joint 0109991660 35015 M25.552 -Likely secondary to scoliosis- Check XR-Conside r chiropract ic care versus PT after XR Fatigue 44596427 R53.83 Active or passive immunization 879036561 Z23 Depressive disorder 3548 9007 F32.9 -Recurrent depression -Increase sertraline to 100mg-F/u 6 weeks [id number] MD [facility] ([address]) [address] [place] [address] 04/18/2020 14:48:07 04/26/2020 11:07:49 Scoliosis of lumbar spine 574401732 M41.86 -h/o surgical repair by Dr. Roach as a teen-Worse cristina back and hip pain-Scoli osis surgeon evaluation -PT-NSAIDs prn-f/u 2 months Vitamin D deficiency 347 00316 E55.9 [id number] MD [facility] ([address]) [address] [place] [address] 06/09/2020 14:47:06 06/12/2020 10:23:06 Normal 12757603 Z34.90 -PNV-f/u US for subchorion ic hemorrhage -May need referral out for care- obesity and elevated BP-h/o gestationa l HTN-f/u scheduled in 3-4 weeks for full IPN and BP re-evaluat ion Increased blood pressure 67266744 R03.0 -Improved on recheck-h/ o gestationa l HTN, but no diagnosis of cHTN, but risk factors-tessy melendrez OB referral, but since [place] stopped delivery, she is unsure where she wants to go-get initial lab and f/u US and f/u BP next visit, consider home cuff [id number] MD [facility] ([address]) [address] [place] [address] 07/03/2020 12:29:23 07/04/2020 10:09:25 Normal 23009071 Z34.90 -PNV -f/u US for subchorion ic hemorrhage resolved -May need referral out for care- obesity and h/o gestationa l HTN -f/u 4 weeks Eczema 06383214 L30.9 Obesity 372992938 E66.9 -Counseled on weight gain and risk -Normal first trimester A1c, plan early glucola [id number] MD [facility] ([address]) [address] [place] [address] 08/01/2020 14:55:31 08/04/2020 09:07:50 Normal 31510874 Z34.90 -Elevated BP again today with morbid obesity and h/o hypertensi on in ([facility]) -Refer to OB for transfer of care -Check baseline LFTs, creatinine , urine protein Allergic rhinitis 455541 04 J30.9 Atopic dermatitis 304799 01 L20.9 [id number] Mala Bartholomew [place] [facility] ([address]) [address] [place] [address] 11/10/2020 10:25:18 11/14/2020 08:40:40 Active or passive immunization 161048401 Z23 [id number] Malika Savage MD [place] [facility] ([address]) [address] [place] [address] 03/05/2021 11:39:47 03/05/2021 14:20:59 Active or passive immunization 216656926 Z23 [id number] ROSE Briones [place] [facility] ([address] [address]) [address] [place] [address] 11/05/2021 11:55:08 11/06/2021 11:45:17 Acute conjunctivitis 04571778 H10.12 -treat with abx drops-f/u 2-3 days if symptoms do not improve-to ER if pain or loss of vision in eye Morbid obesity 248001915 E66.01 [id number] Jeevan Richmond PA-C [place] [facility] ([address]) [address] [place] [address] 01/11/2022 09:43:37 01/15/2022 09:33:15 COVID-19 852735120 U07.1 I counseled pt on self isolation as detailed below. Pt not getting relief from OTC cold meds so will send Rx for Virtussin. Advised pt this is a controlled substance and one time Rx only. Do not drive or watch children alone while taking this medication as it may cause drowsiness . Rest and plenty of fluids. Go to ER if symptoms worsening or breathing problems develop. Go to ER immediatel y if you develop CP, SOB, hemoptysis or any other worrisome symptoms. I answered all pt questions and they expressed understand ing. GUIDELINES FOR STAYING HOME: - Separate yourself from others in your household, do not share anything (e.g. utensils, phone) and stay at home for at least: - 10 days, and for 3 days with no fever (without fever reducing medicine) and improvemen t of respirator y symptoms (cough, shortness of breath) whichever is longer. - caregivers homecare if you can. GUIDELINES FOR RETURNING TO THE WORKPLACE: - Notify your space control supervisor . - Return to work after 10 days, and for 3 days with no fever (without-f ever reducing medicine) and improvemen t of respirator y symptoms (cough, shortness of breath) whichever is longer. - Stay 6 feet away from co-workers and visitors, if possible. - If it is difficult to stay 6 feet away, wear a mask. [id number] Patrica Houston NP-Tiffanie MIJARES ([facility] [address]) [address] [place] [address] 06/06/2022 14:01:39 06/10/2022 12:07:55 Pharyngitis [id number] J02.9 -completed course of PCN despite neg strep test-filomena rn for mono vs other viral illness-OT C meds as needed for pain-will burst with prednisone -if not better after steroid burst will need to be seen in the office Obesity 530007637 E66.9 [id number] MD Guy Martinez ([facility] [address]) [address] [place] [address] 07/02/2022 12:02:43 07/03/2022 14:14:41 Skin tag [id number] L91.8 -Removal X 1 left shoulder-f /u scheduled for more removal Hypertroph y of tonsils 13525601 J35.1 -Chronic, worse-MIRA symptoms with tonsillar hypertroph y-ENT evaluation Obesity 366209317 E66.9 [id number] MD Unique Martinez FP ([facility] [address]) [address] [place] [address] 03/09/2024 14:03:35 03/11/2024 11:28:16 Administration of influenza vaccine 85356190 Z23 Family his tory of diabetes mellitus 599021838 Z83.3 Anxiety 90245394 F41.9 -Chronic, intermitte nt, uncontroll ed-Restart sertraline -Risks, benefits, alternativ es, and common side effects reviewed-H ydroxyzine prn acute panic-f/u 1 month for Nexplanon removal and pap [id number] Malika Svaage MD [facility] ([facility]) [address] [place] [address] 04/02/2024 16:58:45 04/06/2024 12:04:45 Cough 62492126 R05.9 -Testing neg-Viral syndrome-S ymptomatic care [facility] ion care management 991162518 Z30.9 -Nexplanon removed-Re new OCP-Use, risks, benefits, and alternativ es reviewed-L ast pap at [facility] Obesity 936412007 E66.9 Health Concerns Section Related Observation LastModified by Organization Detai ls LastModified Time None Recorded Concern Status LastModified by Organization Details LastModified Time None Recorded Advance Directives Directive None Recorded Payers Encounter Date Sequence Insurance Name Policy Number Policy Mary Covered Member ID Mary Member ID Guarantor Name 01/11/2022 1 [facility] ON OR AFTER 11/09/20 (MEDICAID REPLACEMENT - HMO) Hannah Watts [id number] Hannah Watts 06/06/2022 1 [facility] ON OR AFTER 11/09/20 (MEDICAID REPLACEMENT - HMO) Hannah Watts [id number] Hannah Watts 07/02/2022 1 [facility] ON OR AFTER 11/09/20 (MEDICAID REPLACEMENT - HMO) Hannah Watts [id number] Hannah Watts 03/09/2024 1 [facility] ON OR AFTER 11/09/20 (MEDICAID REPLACEMENT - HMO) Hannah Watts [id number] Hannah Watts 04/02/2024 1 [facility] ON OR AFTER 11/09/20 (MEDICAID REPLACEMENT - HMO) Hannah Watts [id number] Hannah Watts Notes Date Note Type Note Provider Name and Address Organization Details Recorded Time 01/11/2022 text/html Hannah is callin g today c/o worsening cough after testing positive for Covid on 01/06/22. She states she initially had fever of 104F, chills and productive cough with yellow sputum on 01/03/22. She is afebrile today but cough is not improving. She has been taking OTC Tussin DM with little relief and is requesting something stronger. She denies fever, SOB, wheezing, CP, BALLESTEROS, hemoptysis, abdominal pain, N/V/D/C or rash. Jeevan Richmond PA-C Attn: Accounting, [address] [place], [address], [place] [facility] 01/11/2022 10:18:29 06/06/2022 text/html Hannah is callin gillian today with complaints of sore throat. She went to on 05/27 for sore throat, lymphadenopathy and patches in her throat. She was tested for flu, covid and strep and all were negative. She was still discharged with PCN and she did complete the abx. She notes her lymph nodes have almost resolved and she no longer sees patches in her throat. She reports pain with swallowing. SHANNON BrionesC Attn: Accounting, [address] [place], [address], [place] [facility] 06/06/2022 15:24:40 07/02/2022 text/html Hannah has 2 concerns- skin tag on L shoulder that rubs and gets irritated by bra strap, desires removal. Also, she recently had strep throat and has had over a year of enlarged tonsils, trouble sleeping at night waking up gasping with trouble breathing. No current fever or sore throat. Malika Savage MD Attn: Accounting, [address] [place], [address], [place] [facility] 07/02/2022 22:52:31 03/09/2024 text/html Hannah is here f or anxiety. She has a h/o anxiety but has been off meds for awhile. She had a recent acute panic attack with associated hives. She feels overwhelmed, anxious, and has acute unprovoked panic attacks. Not down, depressed, or tearful. Malika Savage MD Attn: Accounting, [address] [place], [address], [place] [facility] 03/09/2024 20:16:39 04/02/2024 text/html Hannah is here t o remove her Nexplanon which was placed in her R arm. She has irregular bleeding with it and is interested in changing to OCPs. She also has 2 days of headaches, nasal congestion, sore throat, and cough. Malika Savage MD Attn: Accounting[address] [facility], [place], [address], [facility] - [facility] 04/03/2024 16:56:18 OBGyn Episode Ob Episode Information Episode Created Date Number of Fetuses Patient Bloodtype Patient rh Status Prepregnancy Weight lbs Domestic Partner Domestic Partner Phone Father Name Auxiliary Power Equipment Operator Status 08/04/19 21 1 CLOSED Fetus Data First Name Last Name Admitted to NICU Weight (g) Sex Living Outcome Pediatric Complications Fetus ID Race Codes Race Delivery Type 3742.13 4 M Full Term 54808 Vaginal Juan Carlos Calculation Initial Juan Carlos Date [...] Complications Tubal Sterilization Discharge Date Comments 4 41 Discharge Information Feeding Method Contraceptive Method Maternal HG B and HCT Levels Ob Episode Information Episode Created Date Number of Fetuses Patient Bloodtype Patient rh Status Prepregnancy Weight lbs Domestic Partner Domestic Partner Phone Father Name Auxiliary Power Equipment Operator Status 08/04/19 21 1 CLOSED Fetus Data First Name Last Name Admitted to NICU Weight (g) Sex Living Outcome Pediatric Complications Fetus ID Race Codes Race Delivery Type 6973.97 7 M Full Term 63890 Vaginal Juan Carlos Calculation Initial Juan Carlos Date [...] Complications Tubal Sterilization Discharge Date Comments 6 39.2 gestatio n al HTN Discharge Information Feeding Method Contraceptive Method Maternal HG B and HCT Levels Ob Episode Information Episode Created Date Number of Fetuses Patient Bloodtype Patient rh Status Prepregnancy Weight lbs Domestic Partner Domestic Partner Phone Father Name Auxiliary Power Equipment Operator Status 06/09/19 21 1 B Positive CLOSED Fetus Data First Name Last Name Admitted to NICU Weight (g) Sex Living Outcome Pediatric Complications Fetus ID Race Codes Race Delivery Type 2891.64 9 F Full Term 32211 2106-3 White Vaginal Problems Problem Notes Problem Name Start Date End Date Resolution Snomed Code Not e Subcortical hemorrhage 9828646 3 Obesity [id number] Juan Carlos Calculation Initial Juan Carlos Date Initial Exam Date Initial Exam Provider Initial Ultrasound Date Last Menstrual Period Date Ultra Sound Weeks Gestation 01/21/2021 06/09/2020 [email or web address] 06/04/2020 04/21/2020 7 Eighteen To Twenty Week Juan Carlos Update Ultra Sound Date Fundal Height At Umbil Quickening Date Ultra Sound Latest Weeks Gestation Final Juan Carlos Confirmed By Final Juan Carlos Confirmed Date Final Juan Carlos Date Ultra Sound Latest Days Gestation 0 01/27/20 21 0 Pre- Flowsheet Flowsheet Date 06/09/2020 Vee Score Blood Edema Fundus Height Fundus Units Glucose Ketones Leukocytes Nitrite Labor Signs Protein Cervic Dilation Cervic Effacement Cervic Station Type Weight in lbs Pre/Post Dialysis Refused Weight 223.787427746905 BP Diastolic BP Location Tested BP Systolic BP Type 94 140 sitting 86 128 Fetus Heart Rate Present Fetus Movement Comments Flowsheet Date 07/03/2020 Vee Score Blood Edema Fundus Height Fundus Units Glucose Ketones Leukocytes Nitrite Labor Signs Protein Cervic Dilation Cervic Effacement Cervic Station trace Type Weight in lbs Pre/Post Dialysis Refused Weight 219.528653434150 BP Diastolic BP Location Tested BP Systolic BP Type 80 122 sitting Fetus Heart Rate Present A 140s Fetus Movement Comments Flowsheet Date 08/01/2020 Vee Score Blood Edema Fundus Height Fundus Units Glucose Ketones Leukocytes Nitrite Labor Signs Protein Cervic Dilation Cervic Effacement Cervic Station trace Type Weight in lbs Pre/Post Dialysis Refused Weight 219.096670693778 BP Diastolic BP Location Tested BP Systolic BP Type 92 133 sitting Fetus Heart Rate Present A 144 Fetus Movement Comments Elevated BP X 2, transfer ca re to OB Flowsheet Date 11/10/2020 Vee Score Blood Edema Fundus Height Fundus Units Glucose Ketones Leukocytes Nitrite Labor Signs Protein Cervic Dilation Cervic Effacement Cervic Station Type Weight in lbs Pre/Post Dialysis Refused BP Diastolic BP Location Tested BP Systolic BP Type Fetus Heart Rate Present Fetus Movement Comments Menstrual History Last Menstrual Date Menses Monthly On Bcp Conception Prior Menses Frequency Hcg Plus Date Menarche Onset Age 1204/21/2020 Genetic Screening And Infection History Question Response Note Patient's Age Will Be 35 Yea rs Or Older At Estimated Date of Delivery false Thalassemia (Greek, Iraqi, Mediterranean, Or Background): MCV < 80 false Neural Tube Defect (Meningom yelocele, Spina Bifida, Or Anencephaly) false Congenital Heart Defect true Angel Luis wi th ASD, son Down Syndrome false Remi-Sachs (eg, Sikhism, Cajun, Armenian-Austrian) f alse Jose Raul Disease false Sickle Cell Disease Or Trait () false Hemophilia Or Other Blood Disorders false Muscular Dystrophy false Cystic Fibrosis false Dunbar's Chorea false Mental Retardation/Autism false If Yes, Was Person Tested For Fragile X? false Other Inherited Genetic Or Chromosomal Disorder false Maternal Metabolic Disorder (eg, Type 1 Diabetes , PKU) false Patient Or Baby's Father Had A Child With Defects Not Listed Above false Recurrent Loss, Or A Stillbirth false Medications (including Suppl ements, Vitamins, Herbs, OTC Drugs), Illicit/Recreational Drugs, Alcohol false If Yes, Agent(s) And Strength/Dosage false Any Other Genetic History false Live With Someone With TB Or Exposed To TB false Patient Or Partner Has History Of Genital Herpes false Rash Or Viral Illness Since Last Menstrual Perio d false History Of STD, Gonorrhea, Chlamydia, HPV, Syphi lis false Other Infection History false History of HIV false History of Hepatitis false Prior GBS-infected child false Delivery Information Delivery Date Delivery Type Labor Anesthesia Weeks Gestation Incision Type Labor Labor Length Hrs Delivered By Post Complications Tubal Sterilization Discharge Date Comments 1 [facility] 37.5 [facility] Information Feeding Method Contraceptive Method Maternal HG B and HCT Levels
--- OUTSIDE RECORDS SUMMARY | 2024-06-22 02:15 | XMS_ITS | Clinical Summary ---
Author Organization [facility] Address [address] [place] [address] Care Team Providers Care Ballaster Name Role Phone Beatriz Savage MD Primary Care Provider [phone] Source Comments [facility],non-owned Affiliates and Associated Physician Practices is amultiple site organization consisting of ambulatory clinics and hospital sitesin [place], [place], [place] and [place]. This disclosure is being madepursuant to the Care Everywhere program and may not contain all information available regarding this patient. Last updated 18.[facility] Allergies No known active allergies Medications * Be aware that medications may not be up to date on this document. Alwaysverify current medications with the patient. Medication Sig Dispensed Refills Start Date End Date Status Prenat w/o [id number] WEBB (+DHA) 27-1 & 250 MG MISC Take 1 Tab by mouth once daily 30 Each 11 03/28/2015 Active Additional Information Patient not taking.Reported [...] fluticasone propionate (Flonase) 50 MCG/ACT nasal spray [place] 2 (two) sprays into each nostril as [...] different from the original. Patient phone number [phone] [facility] Problem Noted Date Diagnosed Date Encounter for [...] trimester 12/09/2022 (normal spontaneous vaginal delivery) 12/09/2022 Encounters Date Type Department Care Team Description 06/14/2024 9:15 AM COMBATANT SWIMMER Office Visit [facility] - [facility] [address] [place] [phone] Gerardo Rodriguez MD MIRA (obstructive sleep apnea) (Primary Dx); Choking episode occurring at night; Globus sensation; Gastroesophageal reflux disease without esophagitis; Laryngopharyngeal reflux (LPR) 06/14/2024 Travel from Last 3 Months Immunizations Name Administration Dates Next Due FLU VACCINE QUAD IIV4 SPLIT 0.25 ML IM 0 INFLUENZA VACCINE, CELL CULT URE, TRIV. (FLUCELVAX TRIVALENT; 6MO+), 0.5 ML (CCIIV3) 02/07/2014 INFLUENZA VACCINE, QUADR. (F LUZONE; FLULAVAL; FLUARIX; AFLURIA QUADRIVALENT; 6MO+), 0.5 ML (IIV4) 01/14/2017 TDAP (7yrs+) 03/21/2014 Family History Medical History Relation Name Comments Arthritis - Rheumatoid Maternal Grandmother Anesthesia Reaction Mother nausea/v omiting Arthritis - Osteo Mother Cancer Mother at 8 months of age, s/p resection Diabetes Mother Migraine Mother Schizophrenia Paternal Grandfather Relation Name Status Comments Maternal Grandmother Alive Mother Alive Paternal Grandfather Social History Tobacco Use Types Packs/Day Years [...] Comments Blood Pressure 126/82 06/14/2024 9:07 AM COMBATANT SWIMMER Pulse 71 06/14/2024 9:07 AM COMBATANT SWIMMER Temperature 36.4 C (97.5 F) 12/17/2022 3:47 PM CDT Respiratory Rate 16 12/17/2022 5:01 PM CDT Oxygen Saturation 95% 12/17/2022 5:01 PM CDT Inhaled Oxygen Concentration 100% 04/27/2010 7 :00 AM COMBATANT SWIMMER Weight 109.3 kg (241 lb) 06/14/2024 9:07 AM COMBATANT SWIMMER Height 154.9 cm (5' 1 ) 06/14/2024 9:07 AM COMBATANT SWIMMER Body Mass Index 45.54 06/14/2024 9:07 AM COMBATANT SWIMMER Plan of Treatment Upcoming Encounters Date Type Department Care Team (Late st Contact Info) Description 09/13/2024 9:15 AM CDT Office Visit [facility] [address] [place] [phone] Gerardo Rodriguez MD [address] [place] [address] [address] [place] [address] 09/23/2024 10:20 AM CDT [facility] [address] [place] [phone] Twila Ramsey APNP-STEREOTYPER [address] [facility] 2L DIV OF PULMONARY/[place] [address] Health Maintenance Due Date Last Done Comments HEPATITIS C SCREENING 07/25/2011 HEPATITIS B VACCINE (1 of 3 - 19+ 3-dose series) 2012 PNEUMOCOCCAL VACCINE (1 of 2 - PCV) 2012 PAP SMEAR 03/28/2018 03/28/2015 COVID-19 VACCINE (2 - season) 2024 06/09/2020 DTAP/TDAP/TD VACCINES (2 - Td or Tdap) 03/21/2024 03/21/2014 DEPRESSION SCREENING 05/12/2024 ZOSTER VACCINE (1 of 2) 07/30/2043 HIV SCREENING Completed 03/28/2015 INFLUENZA VACCINE Completed 03/09/2024, , 01/14/2017, Additional history exists HIB VACCINE Aged Out No longer eligi ble based on patient's age to complete this topic HPV VACCINE Aged Out No longer eligi ble based on patient's age to complete this topic MENINGOCOCCAL (Group B) VACCINE Aged Out No longer eligible based on patient's age to complete this topic MENINGOCOCCAL VACCINE Aged Out No sva steve eligible based on patient's age to complete this topic Procedures Procedure Name Priority Date/Time Associated Diagnosis Comments CYTOLOGY CERVICAL/VAG PAP SCREEN THIN PREP Routine 03/28/2015 11:56 AM COMBATANT SWIMMER HIV-1 HIV-2 ANTIBODY + HIV P24 AG PANEL Routine 03/28/2015 11:55 AM COMBATANT SWIMMER from Last 3 Months or Most Recently Relevant to Health Maintenance Results * CYTOLOGY CERVICAL/VAG SCREEN THIN PREP (03/28/2015 11:56 AM COMBATANT SWIMMER) ThinPrep Pap See Scanned Report 04/12/2015 10:42 AM COMBATANT SWIMMER [facility] NON INTERF Miscellaneous samples (specimen) ENTIRE ENDOCERVIX / Unknown Collection / Unknown 03/28/2015 11:56 AM COMBATANT SWIMMER 03/29/2015 11:52 AM COMBATANT SWIMMER Kimberly John POWER GENERATION PLANT OPERATOR-[facility] LAB - PATHOLOGY/CY TOLOGY ORDERABLES [facility] NON INTERF [address] * HIV-1 HIV-2 ANTIBODY + HIV P24 AG PANEL (03/28/2015 11:55 AM COMBATANT SWIMMER) HIV1/2 Ab + P24 Ag Non Reactive Non Reactive 03/28/2015 4:56 PM COMBATANT SWIMMER [facility] Blood BLOOD SPECIMEN / Unknown Venipuncture / Unknown 03/28/2015 11:55 AM COMBATANT SWIMMER 03/28/2015 1:03 PM COMBATANT SWIMMER Narrative [facility] - 03/28/2015 4:56 PM COMBATANT SWIMMER No Laboratory evidence of HIV infection. Kimberly Lopez APRN-[facility] LAB - CHEMISTRY OR DERABLES Performing Organization Address City/State/[facility] Co de Phone Number [facility] [address] [place] [address] from Last 3 Months or Most Recently [...] 9:51 PM 07/07/2015 12:47 AM Care Teams Ballaster Relationship Specialty Start Date End Date Beatriz Savage MD PCP - General 10/18/15
[2024-06-22 02:17] VITALS: BP 132/65; PULSE 94; RESP 18; TEMP 36.8; O2SAT 97
--- NOTE | 2024-06-22 08:33 | ED_ITS ---
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 Did recently complete a course of Augmentin. Is sexually active and monogamous with a partner of 12 years with no concern for cheating/STDs. Related Data Home Medications ?Medication ?Instructions ?Recorded ?Confirmed ?Last Taken ?Type 1 tablet PO DAILY 06/01/20 Unknown History Allergies Allergy/AdvReac Type Severity Reaction Status Date / Time No Known Allergies Allergy Verified 08/29/20 18:03 Review of Systems Review of Systems: All systems reviewed & are unremarkable except as noted in HPI and below PMFSH Past Medical History Medical History (Updated 06/22/24 @ 08:33 by Milagros Medrano MD) Anxiety Asthma Surgical History Surgical History (Updated 04/06/20 @ 18:33 by Curry Monroy, PA-C) History of orthopedic surgery Social History Social History (Updated 06/02/20 @ 02:25 by Denisa Islas MD) Smoking status: Never smoker Gender identity (if verbalized by the patient): Female Exam Narrative: EXAMINATION OF ORGAN SYSTEMS/BODY AREAS: Constitutional: Vital signs per nursing GENERAL:[No acute distress, non-toxic appearing.] HEAD: Normal with no signs of head trauma. EYES: EOMI, conjunctiva normal ENT: Hearing grossly intact LUNGS: Nonlabored breathing. HEART: [Regular rate and rhythm] ABD: [Soft], [nontender to palpation] : Some vaginal discharge and discomfort without adnexal or cervical motion tenderness EXT: Normal range of motion SKIN: [No rashes or lesions.] NEURO: [Alert and oriented x 3. No gross focal sensory or strength deficits.] PSYCH: Normal affect Course Vital Signs Vital signs: Vital Signs Temperature 98.2 F 06/22/24 02:17 Pulse Rate 94 06/22/24 02:17 Respiratory Rate 18 06/22/24 02:17 Blood Pressure 132/65 06/22/24 02:17 Pulse Oximetry 97 06/22/24 02:17 Oxygen Delivery Room Air 06/22/24 02:17 Temperature 97.5 F L 06/22/24 09:52 Pulse Rate 78 06/22/24 09:52 Respiratory Rate 15 06/22/24 09:52 Blood Pressure 122/78 06/22/24 09:52 Pulse Oximetry 100 06/22/24 09:52 Oxygen Delivery Room Air 06/22/24 02:17 MDM - Female Genitourinary MDM Narrative Medical decision making narrative: 28-year-old female with vaginal itching/discomfort, did recently finish antibiotic course, I highly suspect yeast infection given her exam and her history, low concern for STDs. Yeast positive. Started on fluconazole, return precautions discussed, I have asked her to follow-up with her PCP for the remainder of for STD screening. Patient agreeable to this plan. Lab Data Labs: Lab Results 06/22/24 06/22/24 06/22/24 Range/Units 08:34 08:40 08:49 Urine Color Yellow (Yellow) Urine Appearance Cloudy H (Clear) Urine pH 6.5 (5.0-9.0) Ur Specific [place] 1.031 (1.001-1.035) Urine Protein Trace (Negative) mg/dL Urine Glucose (UA) Negative (Negative) mg/dL Urine Ketones Trace H (Negative) mg/dL Ur Blood (Man) Negative (Negative) Urine Nitrate Negative (Negative) Urine Bilirubin Negative (Negative) Urine Urobilinogen 1.0 (<2.0) mg/dL Add Ur Microanalysis Reviewed Leukocyte Esterase Rfl 2+ H (Negative) FELY/UL Urine RBC 11-20 H (0-2) /hpf Urine WBC 21-50 H (0-3) /hpf Ur Squamous Epith Cells Moderate (Few) /hpf Urine Bacteria None seen /hpf Urine Casts 0-2 Urine Yeast (Budding) Present H (None) /hpf POC Urine HCG, Qual Negative (Negative) C. trachomatis (PCR) Not detected (NOT DETECTE) HSV I DNA PCR Pending HSV II DNA PCR Pending HSV (PCR) Source Pending N. gonorrhoeae (PCR) Not detected (NOT DETECTE) T. vaginalis (PCR) Not detected (NOT DETECTE) Bact Vaginosis Panel 06/22/24 Range/Units 09:12 Urine Color (Yellow) Urine Appearance (Clear) Urine pH (5.0-9.0) Ur Specific [place] (1.001-1.035) Urine Protein (Negative) mg/dL Urine Glucose (UA) (Negative) mg/dL Urine Ketones (Negative) mg/dL Ur Blood (Man) (Negative) Urine Nitrate (Negative) Urine Bilirubin (Negative) Urine Urobilinogen (<2.0) mg/dL Add Ur Microanalysis Leukocyte Esterase Rfl (Negative) FELY/UL Urine RBC (0-2) /hpf Urine WBC (0-3) /hpf Ur Squamous Epith Cells (Few) /hpf Urine Bacteria /hpf Urine Casts Urine Yeast (Budding) (None) /hpf POC Urine HCG, Qual (Negative) C. trachomatis (PCR) (NOT DETECTE) HSV I DNA PCR HSV II DNA PCR HSV (PCR) Source N. gonorrhoeae (PCR) (NOT DETECTE) T. vaginalis (PCR) (NOT DETECTE) Bact Vaginosis Panel Pending Discharge Plan Discharge Clinical Impression: Vaginitis Patient Disposition: Home, Self-Care Condition: Stable Instructions: Yeast Infection (ED) Additional Instructions: Please follow-up with your doctor in the next few days to get results for the rest of your testing from today. You can always return to the emergency room for further issues. Patient Language: French Prescriptions: New fluconazole 150 mg tablet 150 mg PO ONCE Qty: 1 0RF Rx Instructions: as a single dose No Action 1 tablet PO DAILY promethazine 25 mg tablet 25 mg PO Q6H PRN (Reason: nausea and vomiting) Qty: 20 0RF Follow-up/Referrals: Hussein,Beatriz Clemente MD [Primary Care Provider] - 2 Days
[2024-06-22 08:36] VITALS: BP 140/88; PULSE 71; RESP 16; O2SAT 99
[2024-06-22 08:44] LABS: BEDSIDEPREGUCG Negative (Negative)
[2024-06-22] MEDS: FLUCONAZOLE 150 MG TABLET PO (08:45)
--- OUTSIDE RECORDS SUMMARY | 2024-06-22 08:52 | XMS_ITS | Clinical Summary ---
Author Organization [facility] Address [address] [place] [address] Phone Care Team Providers Care Landscape Nurseryman Name Role Phone Beatriz Savage MD Primary Care Provider [phone] Allergies Active Allergy Reactions Criticality Noted Date [...] on file Legal Sex Female 6:04 PM DIRECTOR OF PREMI[employer] Gender Identity Not on file Sexual Orientation Not on file Last Filed Vital Signs Vital Sign Reading Time Taken Comments Blood Pressure 120/78 04/07/2020 8:13 PM DIRECTOR [employer] Pulse 73 04/07/2020 8:15 PM DIRECTOR OF [employer] Temperature 36.3 C (97.4 F) 04/07/2020 6:08 PM DIRECTOR OF [employer] Respiratory Rate 18 04/07/2020 8:15 PM DIRECTOR OF [employer] Oxygen Saturation 100% 04/07/2020 8:15 PM DIRECTOR OF [employer] Inhaled Oxygen Concentration - - Weight 95.3 kg (210 lb) 04/07/2020 6:08 PM [employer]OR [employer] Height 154.9 cm (5' 1 ) 04/07/2020 6:08 PM DIRECTOR OF [employer] Body Mass Index 39.68 04/07/2020 6:08 PM DIRECTOR OF [employer] Plan of Treatment Health Maintenance Due Date [...] patient's age to complete this topic Insurance Care Teams Landscape Nurseryman Relationship Specialty Start Date End Date Beatriz Savage MD [address] [facility] [address] [place] [address] PCP - General Family Medicine 04/07/20
--- OUTSIDE RECORDS SUMMARY | 2024-06-22 08:52 | XMS_ITS | Encounter Summary ---
Author Organization [facility] Address [facility] [place] [address] Care Team Providers Care Agile Project Manager Name Role Phone Beatriz Savage MD Primary Care Provider [phone] Encounter Details Date Type Department Care Team (Late st Contact Info) Description 02/03/2021 Hospital Follow-up Call [facility] [place] [address] Sagrario Gaitan, RN Anesthesia Record Procedure Summary Procedure Name Responsible Anesthesiologist Anesthesia Start Time Anesthesia Stop Time LABOR EPIDURAL Events Date Time Event Comment 01/10/2021 1453 AN TECHNICAL PROJECT COORDINATOR Prepped 02/07/2021 1547 ANE Not Admin Meds [...] on filedocumented in this encounter Care Teams Agile Project Manager Relationship Specialty Start Date End Date Beatriz Savage MD [address] [facility] [address] [place] [address] PCP - General 12/25/13 documented as of this encounter
--- OUTSIDE RECORDS SUMMARY | 2024-06-22 08:52 | XMS_ITS | Clinical Summary ---
Author Organization [facility] Address [address] [place] [id number] Care Team Providers Care Tube Test Technician Name Role Phone Beatriz Savage MD Primary Care Provider [phone] Allergies No known active allergies Medications 27-1 MG tablet Take 1 tablet by mouth daily. 10/08/2020 Active Active Problems Problem Noted Date Diagnosed Date Spontaneous vaginal delivery ([facility]) ([facility]) 01/10/2021 Social History Tobacco Use Types Packs/Day [...] 1:45 AM 01/10/2021 7:57 PM Care Teams Tube Test Technician Relationship Specialty Start Date End Date Beatriz Savage MD [address] [facility] [address] [place] [address] PCP - General 12/25/13
--- OUTSIDE RECORDS SUMMARY | 2024-06-22 08:53 | XMS_ITS | Referral Summary ---
Author Organization [facility] Address [address] [place] [address] Care Team Providers Care Calciminer Name Role Phone Beatriz Savage MD Primary Care Provider [phone] Source Comments [facility],non-owned Affiliates and Associated Physician Practices is amultiple site organization consisting of ambulatory clinics and hospital sitesin [place], [place], [place] and [place]. This disclosure is being madepursuant to the Care Everywhere program and may not contain all information available regarding this patient. Last updated 18.[facility] Encounters Date Type Department Care Team Description 06/14/2024 Travel 06/14/2024 9:15 AM NOTCHING MACHINE OPERATOR Office Visit [facility] [place] [address] Gerardo Rodriguez MD MIRA (obstructive sleep apnea) [...] Start Date End Date Status Prenat w/o [id number] [id number] (+DHA) 27-1 & 250 MG MISC [...] fluticasone propionate (Flonase) 50 MCG/ACT nasal spray Barron 2 (two) sprays into each nostril as [...] different from the original. Patient phone number [phone] [facility] Problem Noted Date Diagnosed Date Encounter for [...] Comments Blood Pressure 126/82 06/14/2024 9:07 AM NOTCHING MACHINE OPERATOR Pulse 71 06/14/2024 9:07 AM NOTCHING MACHINE OPERATOR Temperature 36.4 C (97.5 F) 12/17/2022 3:47 PM CDT Respiratory Rate 16 12/17/2022 5:01 PM CDT Oxygen Saturation 95% 12/17/2022 5:01 PM CDT Inhaled Oxygen Concentration 100% 04/27/2010 7 :00 AM NOTCHING MACHINE OPERATOR Weight 109.3 kg (241 lb) 06/14/2024 9:07 AM NOTCHING MACHINE OPERATOR Height 154.9 cm (5' 1 ) 06/14/2024 9:07 AM NOTCHING MACHINE OPERATOR Body Mass Index 45.54 06/14/2024 9:07 AM NOTCHING MACHINE OPERATOR Functional Status Functional Status Response Date of [...] Visit [facility] [address] [place] [id number] Gerardo Rodriguez MD [facility] [place] [address] 09/23/2024 10:20 AM CDT Office Visit [facility] [place] [address] Twila Ramsey APNP-PATIENT BILLER [address] OF PULMONARY/[place] [address] Procedures Procedure Name Priority Date/Time Associated Diagnosis Comments CYTOLOGY CERVICAL/VAG PAP SCREEN THIN PREP Routine 03/28/2015 11:56 AM NOTCHING MACHINE OPERATOR HIV-1 HIV-2 ANTIBODY + HIV P24 AG PANEL Routine 03/28/2015 11:55 AM NOTCHING MACHINE OPERATOR from Last 3 Months or Most Recently Relevant to Health Maintenance Results * CYTOLOGY CERVICAL/VAG SCREEN THIN PREP (03/28/2015 11:56 AM NOTCHING MACHINE OPERATOR) ThinPrep Pap See Scanned Report 04/12/2015 10:42 AM NOTCHING MACHINE OPERATOR [facility] NON INTERF Miscellaneous samples (specimen) ENTIRE ENDOCERVIX / Unknown Collection / Unknown 03/28/2015 11:56 AM NOTCHING MACHINE OPERATOR 03/29/2015 11:52 AM NOTCHING MACHINE OPERATOR [facility] - PATHOLOGY/CY TOLOGY ORDERABLES Performing Organization Address City/[facility]/ZIP Co de Phone Number [facility] NON INTERF [address] * HIV-1 HIV-2 ANTIBODY + HIV P24 AG PANEL (03/28/2015 11:55 AM NOTCHING MACHINE OPERATOR) HIV1/2 Ab + P24 Ag Non Reactive Non Reactive 03/28/2015 4:56 PM NOTCHING MACHINE OPERATOR [facility] Blood BLOOD SPECIMEN / Unknown Venipuncture / Unknown 03/28/2015 11:55 AM NOTCHING MACHINE OPERATOR 03/28/2015 1:03 PM NOTCHING MACHINE OPERATOR Narrative [facility] - 03/28/2015 4:56 PM NOTCHING MACHINE OPERATOR No Laboratory evidence of HIV infection. [facility] - CHEMISTRY OR DERABLES [facility] [address] [place] [address] from Last 3 Months or Most Recently [...] 9:51 PM 07/07/2015 12:47 AM Care Teams Calciminer Relationship Specialty Start Date End Date Beatriz Savage MD PCP - General 10/18/15
--- OUTSIDE RECORDS SUMMARY | 2024-06-22 08:53 | XMS_ITS | Patient Health Summary ---
Author Organization [facility] Address [address] [place] [address] Care Team Providers Care National Account Executive Name Role Phone Beatriz Savage MD Primary Care Provider [phone] Note from [facility] [place],non-owned Affiliates and Associated Physician Practices is amultiple site organization consisting of ambulatory clinics and hospital sitesin [place], [place], [place] and [place]. This disclosure is being madepursuant to the Care Everywhere program and may not contain all information available regarding this patient. Last updated 18.[facility] Allergies No known active allergies Medications * Be aware that medications may not be up to date on this document. Alwaysverify current medications with the patient. * Prenat w/o L-KuRmSr-OWH-FA-DHA (+DHA) 27-1 & 250 MG MISC(Started 03/28/2015) [...] fluticasone propionate (Flonase) 50 MCG/ACT nasal spray [place] 2 (two) sprays into each nostril as [...] Comments Blood Pressure 126/82 06/14/2024 9:07 AM BILLET CUTTER Pulse 71 06/14/2024 9:07 AM BILLET CUTTER Temperature 36.4 C (97.5 F) 12/17/2022 3:47 PM CDT Respiratory Rate 16 12/17/2022 5:01 PM CDT Oxygen Saturation 95% 12/17/2022 5:01 PM CDT Inhaled Oxygen Concentration 100% 04/27/2010 7 :00 AM BILLET CUTTER Weight 109.3 kg (241 lb) 06/14/2024 9:07 AM BILLET CUTTER Height 154.9 cm (5' 1 ) 06/14/2024 9:07 AM BILLET CUTTER Body Mass Index 45.54 06/14/2024 9:07 AM BILLET CUTTER Procedures * PATHOLOGY TISSUE(Performed 12/17/2022) Performed for [...] 10/25/2015) Performed for Threatened labor at term ([facility]) * CBC W AUTO DIFFERENTIAL(Performed 10/25/2015) Performed [...] supervision of other normal , first trimester ([facility]) * URINE MICROSCOPIC ONLY REFLEX TO CULTURE(Performed 07/06/2015) Performed for ([facility]) * URINALYSIS REFLEX MICROSCOPIC REFLEX CULTURE(Performed 07/06/2015) Performed for ([facility]) * CULTURE URINE(Performed 07/06/2015) Performed for ([facility]) * GLUCOSE PROTEIN KETONE URINE - POINT OF CAR(Performed 06/16/2015) * SONOGRAM - COMPLETE(Performed 06/16/2015) Performed for Encounter for supervision of other normal , first trimester ([facility]) * ALPHA FETOPROTEIN BLOOD MATERNAL QUAD PANEL(Performed [...] * HCG URINE QUALITATIVE - POCT (IP) [facility](Performed 07/28/2014) * HCG URINE QUALITATIVE - POINT [...] ANTIBODY(Performed 06/05/2009) Performed for Joint Pain-L/Leg * STRUCTURES MECHANIC ANTIBODY(Performed 06/05/2009) Performed for Joint Pain-L/Leg * [...] CDT) Case Report Surgical Pathology Report Case: [id number] Authorizing Provider: Gerardo Rodriguez MD Collected: 12/17/2022 02:25 PM Ordering Location: [facility] OP Received: 12/17/2022 03:25 PM Pathologist: Anisa Lombardi MD Specimens: A) - Tonsil, Right, Right tonsil B) - Tonsil, Left, Left tonsil 12/18/2022 10:29 AM [facility] Final Diagnosis Tonsil, right, tonsillectomy (A): - Reactive follicular hyperplasia Tonsil, left, tonsillectomy (B): - Reactive follicular hyperplasia 12/18/2022 10:29 AM [facility] Microscopic Description and Comment Microscopic examination substantiates the final diagnosis. 12/18/2022 10:29 AM [facility] Clinical History The patient is a 27 year old woman with recurrent tonsillitis. 12/18/2022 10:29 AM [facility] Gross Description The requisition and specimen(s) are identified with the patient's name Hannah Martinez. Received in formalin, specimen A , is a 4 g, cerebriform, 3 x 2 x 1 cm tonsil with cryptic cut surface. Optical Glass Etcher sections submitted in 1 cassette. Received in formalin labeled B are 4 g of pink-mobley cerebriform tissue ranging from 0.5 to 2.5 x 2.0 x 0.8 cm which are sectioned to reveal cryptic cut surfaces. Optical Glass Etcher tissue submitted in 1 cassette. /ml 12/18/2022 10:29 AM [facility] Pathologist Location at [facility] 12/18/2022 10:29 AM CDT [facility] Disclaimer The performance characteristics of all immunohistochemical and indirect immunofluorescence stains (if any) cited in this report were determined by the Histopathology Laboratory of [facility]. Some of these tests were [...] attending (teaching) pathologist. 12/18/2022 10:29 AM CDT [facility] Embedded Images 12/18/2022 10:29 AM T [facility] Resection without Tumor (Tonsil, Right) 12/17/2022 2:25 PM CDT 12/17/2022 3:25 PM CDT Comment:Pre-op diagnosis: RECURRENT ACUTE TONSILLITIS; TONSILLAR HYPERTROPHY Resection without Tumor (Tonsil, Left) 12/17/2022 2:25 PM CDT 12/17/2022 3:25 PM CDT Comment:Pre-op diagnosis: RECURRENT ACUTE TONSILLITIS; TONSILLAR HYPERTROPHY Gerardo Rodriguez MD LAB - PATHOLOGY/CY TOLOGY ORDERABLES Performing Organization Address [facility]/State/[facility] Phone Number [facility] [address] [phone] * ETT LINE PERFORMABLE (12/17/2022 1:32 PM CDT) Narrative Shonna Nassar MD - 12/17/2022 1:32 PM CDT Shonna Nassar MD 12/17/2022 1:32 PM Endotracheal Tube Placement: Patient Location: OR. Intubation Event Date/Time: 12/17/2022 1:21 PM Procedure: intubation ([id number]). Procedure Section: Sedation: under general anesthesia. Indications [...] Urine Negative Negative 12/17/2022 12:32 PM CDT [facility] Urine URINE / Unknown 12/17/2022 1 2:25 PM CDT 12/17/2022 12:32 PM CDT Gerardo Rodriguez MD LAB - POINT OF CAR E ORDERABLES Performing Organization Address City/[facility]/ZIP Co de Phone Number [place] [phone] [place] [address], [facility] [phone] * HCG URINE QUAL POCT NOTIFICATION (12/17/2022 12:22 PM CDT) Comment Notification Label Only - See Separate Report 12/17/2022 1:32 PM CDT [facility] Urine URINE / Unknown 12/17/2022 1 2:22 PM CDT 12/17/2022 12:22 PM CDT Gerardo Rodriguez MD LAB - URINALYSIS O RDERABLES [facility] [address] [place] [address], [facility] [phone] * TYPE + SCREEN PANEL (12/13/2022 1:01 PM CDT) Only the most recent of5 resultswithin the time period is included. Pathologist [facility] Antibody Screen NEG 2:20 PM CDT [facility] ABO Rh B POS 12/13/2022 2:20 PM CDT [facility] Blood Bank BLOOD SPECIMEN / Unknown Lab Venipuncture / Unknown 12/13/2022 1:01 PM CDT 12/13/2022 1:39 PM CDT Harshal Pena POLICY CHANGE CLERKS SUPERVISOR-CLUTCH MECHANIC LAB - BLOOD B ANK ORDERABLES [facility] [address] [place] [address], [facility] [phone] * CBC W/O DIFFERENTIAL (12/13/2022 1:01 PM CDT) [facility] WBC 9.1 3.5 - 10.5 10 3/uL 12/13/2022 1:38 PM CDT [facility] RBC 5.15 3.80 - 5.20 10 6/uL 12/13/2022 1:38 PM CDT [facility] Hemoglobin 13.8 12.0 - 15.6 g/dL 12/13/2022 1:38 PM T [facility] Hematocrit 42.8 35.0 - 45.0 % 12/13/2022 1:38 PM CDT [facility] MCV 83.1 80.7 - 98.3 fL 12/13/2022 1:38 PM CDT [facility] MCH 26.8 26.7 - 34.0 pg 12/13/2022 1:38 PM CDT [facility] MCHC 32.2 30.8 - 35.9 g/dL 12/13/2022 1:38 PM CDT [facility] RDW-SD 40.9 36.0 - 50.0 fL 12/13/2022 1:38 PM CDT [facility] RDW-CV 13.5 11.2 - 14.8 % 12/13/2022 1:38 PM [facility] Platelet Count 335 150 - 400 10 3/uL 12/13/2022 1:38 PM [facility] MPV 10.4 9.4 - 12.9 fL 12/13/2022 1:38 PM [facility] nRBC Absolute 0.00 0 10 3/uL 12/13/2022 1:38 PM [facility] nRBC Auto 0.0 0 /100 WBC 12/13/2022 1:38 PM [facility] Blood BLOOD SPECIMEN / Unknown Lab Venipuncture / Unknown 12/13/2022 1:01 PM CDT 12/13/2022 1:34 PM CDT Nutressa A Pena POLICY CHANGE CLERKS SUPERVISOR-CLUTCH MECHANIC LAB - HEMATOL OGY ORDERABLES [facility] [address] [place] [address], [facility] [phone] * BASIC METABOLIC PANEL (CALCIUM TOTAL) (12/13/2022 1:01 PM CDT) Only the most recent of3 resultswithin the time period is included. BUN 10 7 - 26 mg/dL 12/13/2022 2:04 PM [facility] Creatinine 0.67 0.56 - 0.96 mg/dL 12/13/2022 2:04 PM [facility] Sodium 143 136 - 145 mmol/L 12/13/2022 2:04 PM [facility] Potassium 4.5 3.5 - 4.5 mmol/L 12/13/2022 2:04 PM [facility] Chloride 107 98 - 107 mmol/L 12/13/2022 2:04 PM [facility] CO2 27 22 - 29 mmol/L 12/13/2022 2:04 PM [facility] Glucose 84 70 - 115 mg/dL 12/13/2022 2:04 PM [facility] Calcium 10.1 8.4 - 10.2 mg/dL 12/13/2022 2:04 PM CDT [facility] Anion Gap 14 8 - 18 12/13/2022 2:04 PM CDT [facility] BUN/Creatinine Ratio 15 7 - 23 12/13/2022 2:04 PM CDT [facility] Osmolality Calculated 294 270 - 300 mOsm/kg 12/13/2022 2:04 PM CDT [facility] eGFR by CKD-EPI >90 >=90 mL/min/1.7 3 m2 12/13/2022 2:04 PM T [facility] Blood BLOOD SPECIMEN / Unknown Lab Venipuncture / Unknown 12/13/2022 1:01 PM CDT 12/13/2022 1:34 PM CDT Harshal Pena APRN-CLUTCH MECHANIC LAB - SHREDDER TENDER PEAT RY ORDERABLES [facility] [address] [place] [address], [facility] [phone] * SONOGRAM - COMPLETE (07/03/2020 9:48 AM BILLET CUTTER) Only the most recent of7 resultswithin the time period is included. Anatomical Region Laterality Modality Other 07/03/2020 9:48 AM BILLET CUTTER Narrative 07/03/2020 10:16 AM BILLET CUTTER [facility] PHONE: FAX: Pat. Name: HANNAH MARTINEZ Karen Connelly. No: [id number] Study Date: 07/03/2020 9:48am , Age: 03 1995, 24 Pregnancies: 3, Para 2 Height: 61 in Weight: 225 lb LMP: Unknown GA by US: 11w5d MIKI: 01/17/2021 GA Selected: 11w5d (Sonographic) MIKI: 01/17/2021 Referring MD: Fiona Savage MD Carpenter/Labor: Rivka Terry RDMS CPT4: 84292 BMI: 42.51 Hist/Ind: Dating (Unknown LMP) Class III obesity History of hypertension History of spinal fusion Asthma MEASUREMENTS & AGE GROWTH EVALUATION Measurement GA Range Srce %for GA Ratios ----- ---- ------- CRL 5.0 cm 11w5d ([id number]) Hadl CRL 50% GA for sonogram 11w5d ([id number]) based on (CRL) Avg Heart Rate: 161 [...] GC AMPLIFIED PROBE (STL) (06/04/2020 9:29 PM BILLET CUTTER) Pathologist [facility] Chlamydia Amplified Probe Negative Negative 06/05/2020 10:51 AM BILLET CUTTER [facility] GC Amplified Probe Negative Negative 06/05/2020 10:51 AM BILLET CUTTER [facility] Microbiology PART OF UTERINE CERVIX / Unknown Collection / Unknown 06/04/2020 9:29 PM BILLET CUTTER 06/04/2020 9:34 PM BILLET CUTTER Narrative [facility] - 06/05/2020 10:51 AM BILLET CUTTER Results based on detection/no detection of ribosomal RNA by amplified method. Tita Lares MD LAB - MICROBIOLO GY ORDERABLES [facility] [address] [place], [place] [address], [facility] [phone] * TRICHOMONAS RAPID TEST (06/04/2020 9:29 PM BILLET CUTTER) Pathologist [facility] Trichomonas Rapid Test Negative Negative 06/04/2020 9:47 PM BILLET CUTTER [facility] Microbiology VAGINAL SWAB / Unknown Collection / Unknown 06/04/2020 9:29 PM BILLET CUTTER 06/04/2020 9:33 PM BILLET CUTTER Tita Lares MD LAB - MICROBIOLO GY ORDERABLES Performing Organization Address City/[facility]/ZIP Co de Phone Number [facility] [address] [place] [address] * HCG URINE QUALITATIVE - POINT OF CARE (IP) (12/12/2015 10:34 AM CDT) Only the most recent of4 resultswithin the time period is included. [facility] HCG Qual Urine Negative Negative [facility] POCT [facility] QC Verified Yes Yes [facility] POC T TESTING Urine specimen (specimen) URINE / Unknown 12/12/2015 10:34 AM CDT Elena Chau MD LAB - POINT OF CARE ORDERABLES Performing Organization Address [facility] Co de Phone Number [facility] PO[facility] TEST[facility] [address] [place] [address] * IMAGING/RADIOLOGY/XRAY RESULTS ORDER (10/28/2015 11:39 PM CDT) Only the most recent of10 resultswithin the time period is included. Anatomical Region Laterality Modality Other Narrative 10/28/2015 11:39 PM CDT Ordered by an unspecified provider. Scanned Document IMAGING * (ABNORMAL) HGB HCT PANEL (10/26/2015 5:52 AM CDT) Only the most recent of2 resultswithin the time period is included. Pathologist [facility] Hemoglobin 8.8(L) 12.0 - 15.6 gm/dL 10/26/2015 6:13 AM CDT [facility] Hematocrit 28.2(L) 35.9 - 45.5 % 10/26/2015 6:13 AM CDT [facility] Blood BLOOD SPECIMEN / Unknown Lab Venipuncture / Unknown 10/26/2015 5:52 AM CDT 10/26/2015 6:03 AM CDT Zuri Turner MD LAB - HEMATOLOGY ORD ERABLES [facility] [address] [place] [address] * (ABNORMAL) CBC W AUTO DIFFERENTIAL (10/25/2015 5:22 PM CDT) Only the most recent of10 resultswithin the time period is included. [facility] WBC 14.0(H) 4.4 - 10.7 x10E9/L 10/25/2015 5:42 PM CDT [facility] WBC Corrected x10E9/L 10/25/2015 5:42 PM CDT [facility] RBC 4.42 3.80 - 5.20 x10E12/L 10/25/2015 5:42 PM CDT [facility] Hemoglobin 9.9(L) 12.0 - 15.6 gm/dL 10/25/2015 5:42 PM CDT [facility] Hematocrit 31.1(L) 35.9 - 45.5 % 10/25/2015 5:42 PM CDT [facility] MCV 70.4(L) 80.7 - 98.3 fl 10/25/2015 5:42 PM CDT [facility] MCH 22.4(L) 26.7 - 34.0 pg 10/25/2015 5:42 PM CDT [facility] MCHC 31.8 30.8 - 35.9 gm/dL 10/25/2015 5:42 PM CDT [facility] Platelet Count 291 153 - 416 x10E9/L 10/25/2015 5:42 PM CDT [facility] RDW-CV 16.2(H) 12.1 - 14.9 % 10/25/2015 5:42 PM CDT [facility] MPV 10.7 9.4 - 12.9 fl 10/25/2015 5:42 PM CDT [facility] Neutrophils % 77.8(H) 44.0 - 73.0 % 10/25/2015 5:42 PM CDT [facility] Lymphocytes % 16.2(L) 20.0 - 43.0 % 10/25/2015 5:42 PM CDT [facility] Monocytes % 4.7(L) 5.0 - 13.0 % 10/25/2015 5:42 PM CDT [facility] Eosinophils % 0.3 0.0 - 6.0 % 10/25/2015 5:42 PM CDT [facility] Basophils % 0.4 0.0 - 2.0 % 10/25/2015 5:42 PM CDT [facility] Immature Granulocytes 0.6 0 - 1 % 10/25/2015 5:42 PM CDT [facility] Neutrophil Absolute 10.92(H) 2.01 - 7.14 x10E9/L 10/25/2015 5:42 PM CDT [facility] Lymphocytes Absolute 2.27 1.07 - 3.94 x10E9/L 10/25/2015 5:42 PM CDT [facility] Monocytes Absolute 0.66 0.26 - 1.07 x10E9/L 10/25/2015 5:42 PM CDT [facility] Eosinophils Absolute 0.04 0 - 0.47 x10E9/L 10/25/2015 5:42 PM CDT [facility] Basophils Absolute 0.05 0 - 0.08 x10E9/L 10/25/2015 5:42 PM CDT [facility] Immature Granulocytes Absolute 0.08(H) 0.00 - 0.06 x10E9/L 10/25/2015 5:42 PM CDT [facility] nRBC Auto 0 /100 WBC 10/25/2015 5:42 PM CDT [facility] Blood BLOOD SPECIMEN / Unknown Venipuncture / Unknown 10/25/2015 5:22 PM CDT 10/25/2015 5:33 PM CDT Pat Sims POLICY CHANGE CLERKS SUPERVISOR-CLUTCH MECHANIC LAB - HEMATOL OGY ORDERABLES [facility] [address] [place] [address] * GLUCOSE PROTEIN KETONE URINE - POINT OF CAR (10/24/2015 1:49 PM CDT) Only the most recent of23 resultswithin the time period is included. Glucose UA neg Negative [facility] POCT TEST[facility] Protein UA trace Negative [facility] Ketone UA neg Negative [facility] QC Verified Yes Yes [facility] POC T TESTING Urine specimen (specimen) URINE / Unknown 10/24/2015 1:49 PM CDT Chanelle Shelton MD LAB - POINT OF CARE ORDERABLES Performing Organization Address [facility]/ZIP Co de Phone Number [facility] [address] [place] [phone] [place] [address] * CULTURE STREP B (10/03/2015 2:19 PM CDT) Only the most recent of2 resultswithin the time period is included. [facility] Culture Negative for Beta Hemolytic Streptococcus Group B JOHN 10/06/2015 9:25 AM CDT [facility] Microbiology MISCELLANEOUS SAMPLES / Unknown Collection / Unknown 10/03/2015 2:19 PM CDT 10/03/2015 2:40 PM CDT Zuri Turner MD LAB - MICROBIOLOGY O RDERABLES Performing Organization Address [facility] Co de Phone Number [facility] [address] [place], [place] [address] [phone] * RPR (09/05/2015 3:12 PM CDT) Only the most recent of3 resultswithin the time period is included. Pathologist [facility] RPR Non Reactive Non Reactive 09/06/2015 8:25 AM CDT [facility] Blood BLOOD SPECIMEN / Unknown Venipuncture / Unknown 09/05/2015 3:12 PM CDT 09/05/2015 3:21 PM CDT Jacki Theodore MD LAB - CHEMISTRY TYRONE RENTERIA Performing Organization Address City/[facility]/ZIP Co de Phone Number [facility] [address] [place] [phone] * GLUCOSE CHALLENGE (09/05/2015 3:12 PM CDT) Only the most recent of3 resultswithin the time period is included. Pathologist [facility] Glucose Challenge 92 64 - 140 mg/dL 09/05/2015 4:07 PM CDT [facility] Glucose Challenge Time 1510 09/05/2015 4:07 PM CDT [facility] Blood BLOOD SPECIMEN / Unknown Venipuncture / Unknown 09/05/2015 3:12 PM CDT 09/05/2015 3:21 PM CDT Jacki Theodore MD LAB - CHEMISTRY TYRONE RENTERIA [facility] [address] [place] [address] * ECHO CONSULT - (07/18/2015 10:46 AM BILLET CUTTER) 07/18/2015 10:4 6 AM BILLET CUTTER Narrative Procedure Note Reading, No - 07/18/2015 [facility] [place] [id number] Fax Echocardiogram Report Pat.Name: HANNAH MARTINEZ Pat.ID: [id number] St.Date: 07/18/2015 Exam Time: 10:46:00 AM Study Type: Echo Age: 1 1995,19Y Sex: FEMALE Sonogrphr: Susy Agrawal RDCS Pat. Stat.:Outpatient Procedures: 2D Complete, Doppler Complete, Color Flow Visit ID: [id number] SUMMARY: Study Data: GA: 25 weeks. MIKI: [...] Coon MD ECHO ORDERABLES Performing Organization Address City/[facility]/ZIP Co de Phone Number [facility] [address] [place] [address] * (ABNORMAL) URINALYSIS MICROSCOPIC ONLY W/REFLEX CULTURE (07/06/2015 10:03 PM BILLET CUTTER) WBC UA 10-20(A) 0-2, 2-5 # /hpf 07/06/2015 11:09 PM [facility] Bacteria UA 2+(A) None Seen 07/06/2015 11:09 PM [facility] Epithelial Cell UA 10-20(A) 0-2, 2-5 # /hpf 07/06/2015 11:09 PM [facility] Reflex Status Culture to follow 07/06/2015 11:09 PM [facility] Urine URINE SPECIMEN OBTAINED BY CLEAN CATCH PROCEDURE / Unknown Collection / Unknown 07/06/2015 10:03 PM BILLET CUTTER 07/06/2015 10:35 PM BILLET CUTTER Natividad Khan DO LAB - URINALYSIS ORD ERABLES Performing Organization Address City/[facility] Co de Phone Number [facility] [address] [place] [address] * (ABNORMAL) URINALYSIS ROUTINE W/REFLEX TO CULTURE (07/06/2015 10:03 PM BILLET CUTTER) Only the most recent of5 resultswithin the time period is included. Color UA Angella(A) Straw, Yellow, Dark Yellow 07/06/2015 11:01 PM BILLET CUTTER [facility] Clarity UA Clear 07/06/2015 11:01 PM [facility] Specific Garber UA >1.030(H) 1.005 - 1.030 07/06/2015 11:01 PM [facility] pH UA 6.0 5.0 - 8.0 pH 07/06/2015 11:01 PM [facility] Protein UA 1+(A) Negative 07/06/2015 11:01 PM [facility] Blood UA Negative Negative 07/06/2015 11:01 PM [facility] Leukocyte UA Negative Negative 07/06/2015 11:01 PM [facility] Nitrite UA Negative Negative 07/06/2015 11:01 PM [facility] Glucose UA Negative Negative 07/06/2015 11:01 PM [facility] Ketone UA 1+(A) Negative 07/06/2015 11:01 PM [facility] Bilirubin UA Negative Negative 07/06/2015 11:01 PM [facility] Urobilinogen UA 1.0 0.1 - 1.0 EU/dL 07/06/2015 11:01 PM [facility] WBC UA Auto 10-20(A) 0-2, 2-5 # /hpf 07/06/2015 11:01 PM [facility] RBC UA Auto 5-10(A) 0-2, 2-5 # /hpf 07/06/2015 11:01 PM [facility] Bacteria UA Auto 1+(A) None seen 07/06/2015 11:01 PM [facility] Hyaline Casts UA Auto Reflex to manual(A) 0 - 2 #/lpf 07/06/2015 11:01 PM [facility] Reflex Status Culture to follow 07/06/2015 11:01 PM [facility] Urine URINE SPECIMEN OBTAINED BY CLEAN CATCH PROCEDURE / Unknown Collection / Unknown 07/06/2015 10:03 PM BILLET CUTTER 07/06/2015 10:35 PM [facility] Natividad Khan DO LAB - URINALYSIS ORD ERABLES [facility] [address] [place] [address] * CULTURE URINE (07/06/2015 10:03 PM [facility]) Only the most recent of4 resultswithin the time period is included. Culture 10,000-50,000 CFU/mL urogenital george JOHN 07/08/2015 1:55 PM BILLET CUTTER [facility] Urine URINE SPECIMEN OBTAINED BY CLEAN CATCH PROCEDURE / Unknown Collection / Unknown 07/06/2015 10:03 PM BILLET CUTTER 07/06/2015 10:35 PM BILLET CUTTER Natividad Khan DO LAB - MICROBIOLOGY O RDERABLES [facility] [address] [place], [place] [address], [facility] [phone] * ALPHA FETOPROTEIN BLOOD MATERNAL QUAD PANEL (05/19/2015 10:58 AM BILLET CUTTER) Results Report 05/20/2015 10:06 PM BILLET CUTTER [facility] ([facility]) Test Results *Screen Negative* 05/20/2015 10:06 PM BILLET CUTTER [facility] ([facility]) Gestational Age Weeks 16.4 WEEKS 05/20/2015 10:06 PM BILLET CUTTER [facility] ([facility]) Gestational Age Based On Ultrasound 05/20/2015 10:06 PM BILLET CUTTER [facility] ([facility]) Comment:16.4 on 05/19/2015 M[age] at [age]KI 22[age]2 YEARS 05/20/2015 10:06 PM [facility] ([facility]) Race 05/20/2015 10:06 PM [facility] ([facility]) Weight 204 lbs 05/20/2015 10:06 PM [facility] ([facility]) Insulin Dependent Diabetes No 05/20/2015 10:06 PM [facility] ([facility]) Multiple Gestation No 05/20/2015 10:06 PM [facility] ([facility]) Alpha-Fetoprotein Value (EIA) 32.3 ng/mL 05/20/2015 10:06 PM [facility] ([facility]) AFP MoM Value 1.10 05/20/2015 10:06 PM [facility] ([facility]) hCG Value 70454 mIU/mL 05/20/2015 10:06 PM [facility] ([facility]) hCG Mom 1.13 05/20/2015 10:06 PM BILLET CUTTER [facility] ([facility]) Estriol Value 0.55 ng/mL 05/20/2015 10:06 PM BILLET CUTTER [facility] ([facility]) Estriol MoM 0.64 05/20/2015 10:06 PM BILLET CUTTER [facility] ([facility]) MINA Value 144.06 pg/mL 05/20/2015 10:06 PM BILLET CUTTER [facility] ([facility]) Mina MoM Value 0.95 05/20/2015 10:06 PM BILLET CUTTER [facility] ([facility]) OSBR Risk 1 IN 8933 05/20/2015 10:06 PM BILLET CUTTER [facility] ([facility]) DSR (2nd Trimester) 1 IN 2367 05/20/2015 10:06 PM BILLET CUTTER [facility] ([facility]) DSR (By Age) 1 IN 1124 05/20/2015 10:06 PM BILLET CUTTER [facility] ([facility]) T18 Risk Not increased 05/20/2015 10:06 PM BILLET CUTTER [facility] ([facility]) T18 (by Age) 1:4377 05/20/2015 10:06 PM BILLET CUTTER [facility] ([facility]) Interpretation Comment 05/20/2015 10:06 PM BILLET CUTTER [facility] ([facility]) Comment: Interpretation: Screen Negative This result [...] identifies 60% of Trisomy 18 pregnancies. The [employer] recommends amniocentesis be offered to women age 35 and older. Recalculations are not recommended when gestational dating by LMP and ultrasound are within 10 days. Comments Comment 05/20/2015 10:06 PM BILLET CUTTER [facility] ([facility]) Comment: Purnima Laughlin, Ph.D., [facility] Principal Genetics Weaving Loom Operator References: Available Upon Request. Multiples Of Median Cutoffs Abbreviation Definitions For AFP Elevations IDD- Insulin Dep Diabetes Bradley 2.5 Black 2.8 OSBR- Open Spina Bifida IDD 2.0 Twins 4.5 Risk DSR Cutoff 1:270 DSR- Down Syndrome Risk T18 Cutoff 1:100 T18- Trisomy 18 Down Syndrome and Trisomy 18 screening are considered Investigational For further inquiries contact [facility] [employer] at [phone]. Blood specimen (specimen) BLOOD SPECIMEN / Unknown Venipuncture / Unknown 05/19/2015 10:58 AM BILLET CUTTER 05/19/2015 11:06 AM BILLET CUTTER Narrative [facility] ([facility]) - 05/20/2015 10:06 PM BILLET CUTTER Performed at: [facility] [place], [place] [id number] Marketing Project Specialist: Norma Paz MD, Phone: [phone] Patrica Camp POLICY CHANGE CLERKS SUPERVISOR-CLUTCH MECHANIC LAB - CHEMISTR Y ORDERABLES [facility] ([facility]) * TSH REFLEX FREE T4 (03/28/2015 11:57 AM BILLET CUTTER) Pathologist [facility] TSH 1.45 0.358 - 3.740 ulU/mL 03/28/2015 7:51 PM BILLET CUTTER [facility] Blood BLOOD SPECIMEN / Unknown Venipuncture / Unknown 03/28/2015 11:57 AM BILLET CUTTER 03/28/2015 7:27 PM BILLET CUTTER Kimberly Lopez POLICY CHANGE CLERKS SUPERVISOR-CNM LAB - CHEMISTRY OR DERABLES Performing Organization Address City/[facility]/ZIP Co de Phone Number [facility] [address] [place] [address] * RUBELLA ANTIBODY IGG TITER (03/28/2015 11:57 AM BILLET CUTTER) Pathologist [facility] Rubella Antibody IgG 12.8 IU/mL 03/30/2015 5:57 PM BILLET CUTTER [facility] ([facility]) Comment: INTERPRETIVE INFORMATION: Rubella Antibody, IgG [...] Unknown Venipuncture / Unknown 03/28/2015 11:57 AM BILLET CUTTER 03/28/2015 1:03 PM BILLET CUTTER Kimberly Lopez APRN-FLORENTIN LAB - SEROLOGY ORD ERABLES [facility] ([facility]) [address] [place] [address], [facility] * CYTOLOGY CERVICAL/VAG SCREEN THIN PREP (03/28/2015 11:56 AM BILLET CUTTER) ThinPrep Pap See Scanned Report 04/12/2015 10:42 AM BILLET CUTTER [facility] REF LAB NON INTERF Miscellaneous samples (specimen) ENTIRE ENDOCERVIX / Unknown Collection / Unknown 03/28/2015 11:56 AM BILLET CUTTER 03/29/2015 11:52 AM BILLET CUTTER Kimberly Lopez APRN-[facility] LAB - PATHOLOGY/CY TOLOGY ORDERABLES Performing Organization Address City/[facility]/ZIP Co de Phone Number [facility] REF LAB NON INTERF [address] * (ABNORMAL) URINALYSIS ROUTINE AUTO (03/28/2015 11:56 AM BILLET CUTTER) Only the most recent of5 resultswithin the time period is included. Color UA Yellow Straw, Yellow, Dark Yellow 03/28/2015 1:26 PM BILLET CUTTER [facility] Clarity UA Cloudy 03/28/2015 1:26 PM BILLET CUTTER [facility] Specific Garber UA 1.018 1.005 - 1.030 03/28/2015 1:26 PM BILLET CUTTER [facility] pH UA 6.0 5.0 - 8.0 pH 03/28/2015 1:26 PM BILLET CUTTER [facility] Protein UA Trace(A) Negative 03/28/2015 1:26 PM BILLET CUTTER [facility] Blood UA Negative Negative 03/28/2015 1:26 PM BILLET CUTTER [facility] Leukocyte UA 1+(A) Negative 03/28/2015 1:26 PM BILLET CUTTER [facility] Nitrite UA Negative Negative 03/28/2015 1:26 PM BILLET CUTTER [facility] Glucose UA Negative Negative 03/28/2015 1:26 PM BILLET CUTTER [facility] Ketone UA Negative Negative 03/28/2015 1:26 PM BILLET CUTTER [facility] Bilirubin UA Negative Negative 03/28/2015 1:26 PM BILLET CUTTER [facility] Urobilinogen UA 0.2 0.1 - 1.0 EU/dL 03/28/2015 1:26 PM BILLET CUTTER [facility] WBC UA Auto 5-10(A) 0-2, 2-5 # /hpf 03/28/2015 1:26 PM BILLET CUTTER [facility] RBC UA Auto 10-20(A) 0-2, 2-5 # /hpf 03/28/2015 1:26 PM BILLET CUTTER [facility] Epithelial Cell UA Auto 5-10(A) 0-2, 2-5 # /hpf 03/28/2015 1:26 PM BILLET CUTTER [facility] Bacteria UA Auto 1+(A) None seen 03/28/2015 1:26 PM BILLET CUTTER [facility] Hyaline Casts UA Auto 2-5(A) 0 - 2 #/lpf 03/28/2015 1:26 PM [facility] Urine URINE SPECIMEN OBTAINED BY CLEAN CATCH PROCEDURE / Unknown Venipuncture / Unknown 03/28/2015 11:56 AM BILLET CUTTER 03/28/2015 1:10 PM BILLET CUTTER Kimberly Lopez APRN-SARAH LAB - URINALYSIS O RDERABLES [facility] [address] [place] [address] * RUBELLA IMMUNE STATUS (03/28/2015 11:56 AM BILLET CUTTER) Rubella Antibody IgG Immune Status Positive - Immune 03/28/2015 2:05 PM [facility] Blood BLOOD SPECIMEN / Unknown Venipuncture / Unknown 03/28/2015 11:56 AM BILLET CUTTER 03/28/2015 1:04 PM BILLET CUTTER Kimberly Lopez APRN-CN LAB - CHEMISTRY OR DERABLES Performing Organization Address City/[facility]/[place] [address] * CHLAMYDIA + GC AMPLIFIED PROBE (03/28/2015 11:56 AM BILLET CUTTER) Chlamydia Amplified Probe Negative Negative 03/29/2015 12:13 PM BILLET CUTTER [facility] GC Amplified Probe Negative Negative 03/29/2015 12:13 PM BILLET CUTTER [facility] Microbiology ENTIRE ENDOCERVIX / Unknown Venipuncture / Unknown 03/28/2015 11:56 AM BILLET CUTTER 03/28/2015 1:10 PM BILLET CUTTER Narrative [facility] - 03/29/2015 12:13 PM BILLET CUTTER Results based on detection/no detection of ribosomal RNA by amplified method. Kimberly Lopez [facility] LAB - MICROBIOLOGY ORDERABLES [facility] [address] [place], [place] [id number] [place] [address] * HEPATITIS B SURFACE ANTIGEN (03/28/2015 11:56 AM BILLET CUTTER) HBsAg Non Reactive Non Reactive 03/28/2015 2:05 PM BILLET CUTTER [facility] Blood BLOOD SPECIMEN / Unknown Venipuncture / Unknown 03/28/2015 11:56 AM BILLET CUTTER 03/28/2015 1:03 PM BILLET CUTTER Kimberly Lopez [facility] LAB - CHEMISTRY OR DERABLES Performing Organization Address [facility] Co de Phone Number [facility] [address] [place] [address] * HIV-1 HIV-2 ANTIBODY + HIV P24 AG PANEL (03/28/2015 11:55 AM BILLET CUTTER) Pathologist [facility] HIV1/2 Ab + P24 Ag Non Reactive Non Reactive 03/28/2015 4:56 PM BILLET CUTTER [facility] Blood BLOOD SPECIMEN / Unknown Venipuncture / Unknown 03/28/2015 11:55 AM BILLET CUTTER 03/28/2015 1:03 PM BILLET CUTTER Narrative [facility] - 03/28/2015 4:56 PM BILLET CUTTER No Laboratory evidence of HIV infection. Kimberly Lopez [facility] LAB - CHEMISTRY OR DERABLES Performing Organization Address City/[facility]/ZIP Co de Phone Number [facility] [address] [place] [address] * HCG URINE QUALITATIVE - POCT (IP) [facility] (07/28/2014 10:25 AM CDT) Test Urine neg REPLACED BY [facility] Urine specimen (specimen) 07/28/2014 10:25 AM CDT Shirley Mendez MD LAB - POINT OF CA RE ORDERABLES REPLACED BY [facility] * LAB RESULTS ORDER (05/13/2014 8:00 PM BILLET CUTTER) Narrative 05/13/2014 8:00 PM BILLET CUTTER Ordered by an unspecified provider. Scanned Document LAB - THERAPEUTIC DR ALEX MONITORING ORDERABLES * (ABNORMAL) BLOOD GASES CORD KEARA (ISTAT) (05/09/2014 10:59 PM BILLET CUTTER) pH Cord Venous POCT 7.28 7.28 - 7.40 pH 05/09/2014 11:03 PM BILLET CUTTER [facility] pCO2 Cord Venous POCT 44 35 - 45 mmHg 05/09/2014 11:03 PM BILLET CUTTER [facility] pO2 Cord Venous POCT 33 22 - 33 mmHg 05/09/2014 11:03 PM [facility] HCO3 Cord Arterial POCT 21(L) 22 - 24 mmol/L 05/09/2014 11:03 PM [facility] BE Cord Venous POCT Calc -6 -6 - 2 mmol/L 05/09/2014 11:03 PM [facility] TCO2 Cord Venous POCT 22 22 - 30 mmol/L 05/09/2014 11:03 PM [facility] O2 Saturation % Cord Venous Calc POCT 55 % 05/09/2014 11:03 PM BILLET CUTTER [facility] Site CORD KEARA 05/09/2014 11:03 PM [facility] Sample iSTAT CORD V 05/09/2014 11:03 PM [facility] Blood CORD BLOOD SPECIMEN / Unknown 05/09/2014 10:59 PM BILLET CUTTER 05/09/2014 11:03 PM BILLET CUTTER Gosia Chu MD LAB - POINT OF CARE ORDERABLES [facility] [address] [place] [address] * GROSS + MICRO EXAM (STL) (05/09/2014 10:59 PM BILLET CUTTER) Case Report Surgical Pathology Report Case: [id number] Authorizing Provider: Ameena Yates MD Collected: 05/09/2014 10:59 PM Ordering Location: [address] Received: 05/10/2014 08:53 AM Pathologist: Shailesh Maria MD Specimen: Placenta 05/11/2014 3:19 PM BILLET CUTTER [facility] Final Diagnosis 1. Placenta, delivery: -- Third trimester placenta -- Three vessel umbilical cord -- Unremarkable membranes /[facility] 05/11/2014 3:19 PM [facility] Gross Description Received in formalin in [...] are no lesions or masses grossly identified. Optical Glass Etcher sections are submitted as follows: A1 - Membranes and umbilical cord A2 - and maternal surface A3 - Maternal surface. DYT/rtc 05/11/2014 3:19 PM BILLET CUTTER [facility] Microscopic Description Sections of the umbilical cord show three vessels with no evidence of vasculitis or funisitis. Sections of the membranes show unremarkable histology and are free of inflammation. Meconium is not identified. Sections of the placental disc show mature chorionic villi with no evidence of hemorrhage or infarction. Subchorionic fibrin deposition is noted. /[facility] 05/11/2014 3:19 PM [facility] Pathology/Cytolo gy ENTIRE PLACENTA / Unknown 05/09/2014 10:59 PM BILLET CUTTER 05/10/2014 8:53 AM BILLET CUTTER Jacki Theodore MD LAB - PATHOLOGY/CYTO LOGY ORDERABLES [facility] [address] [place] [address] * (ABNORMAL) BLOOD GASES CORD ART (ISTAT) (05/09/2014 10:55 PM BILLET CUTTER) pH Cord Arterial POCT 7.21 7.20 - 7.34 pH 05/09/2014 11:03 PM BILLET CUTTER [facility] pCO2 Cord Arterial POCT 62.5(H) 45 - 55 mmHg 05/09/2014 11:03 PM BILLET CUTTER [facility] pO2 Cord Arterial POCT 14 12 - 25 mmHg 05/09/2014 11:03 PM BILLET CUTTER [facility] HCO3 Cord Arterial POCT 24.9 15 - 29 mmol/L 05/09/2014 11:03 PM BILLET CUTTER [facility] BE Cord Arterial POCT -5(L) -2.9 - 8.3 mmol/L 05/09/2014 11:03 PM BILLET CUTTER [facility] TCO2 Cord Arterial POCT 27 mmol/L 05/09/2014 11:03 PM [facility] O2 Saturation Cord Art % Calc POCT 12 % 05/09/2014 11:03 PM [facility] Site CORD ART 05/09/2014 11:03 PM [facility] Sample iSTAT CORD A 05/09/2014 11:03 PM BILLET CUTTER [facility] Blood CORD BLOOD SPECIMEN / Unknown 05/09/2014 10:55 PM BILLET CUTTER 05/09/2014 11:03 PM BILLET CUTTER Gosia Chu MD LAB - POINT OF CARE ORDERABLES [facility] [address] [place] [address] * BLOOD TYPE ABO+ RH PANEL (05/09/2014 10:36 AM BILLET CUTTER) Miscellaneous samples (specimen) BLOOD SPECIMEN / Unknown Venipuncture / Unknown 05/09/2014 10:36 AM BILLET CUTTER 05/09/2014 10:51 AM BILLET CUTTER Walter Samuel MD LAB - BLOOD BANK ORD ERABLES [facility] B[facility] [address] [place] [id number], [facility] * US THYROID (03/07/2014 9:55 AM CDT) [...] this nodule is also recommended. Edna Chaudhry POLICY CHANGE CLERKS SUPERVISOR-CLUTCH MECHANIC US ORDERAB LES * PROTEIN CREATININE RATIO URINE TIMED PNL (02/07/2014 4:21 PM CDT) Volume 24 Hour Urine 2,330 mL 02/07/2014 4:30 PM CDT [facility] Collection Time Hours 24 hrs 02/07/2014 4:30 PM CDT [facility] Protein Urine 7.4 mg/dL 02/07/2014 4:30 PM CDT [facility] Creatinine Urine 41.98 mg/dL 02/07/2014 4:30 PM CDT [facility] Protein/Creatin ine Ratio Urine 0.18 02/07/2014 4:30 PM CDT [facility] Urine TIMED URINE SPECIMEN / Unknown 02/07/2014 4:21 PM CDT 02/07/2014 4:21 PM CDT Jacki Theodore MD LAB - URINE CHEMISTR Y ORDERABLES [facility] [address] [place] [address] * PROTEIN URINE TIMED QUANTITATIVE (02/07/2014 4:21 PM CDT) Volume 24 Hour Urine 2,330 mL 02/07/2014 4:30 PM CDT [facility] Collection Time Hours 24 hrs 02/07/2014 4:30 PM CDT [facility] Protein 24 Hour Urine 172 42 - 225 mg/24hr 02/07/2014 4:30 PM CDT [facility] Protein Urine 7.4 mg/dL 02/07/2014 4:30 PM CDT [facility] Urine TIMED URINE SPECIMEN / Unknown 02/07/2014 4:21 PM CDT 02/07/2014 4:21 PM CDT Jacki Theodore MD LAB - URINE CHEMISTR Y ORDERABLES Performing Organization Address [facility] Co de Phone Number [facility] [address] [place] [address] * TSH (02/07/2014 9:52 AM CDT) Only the most recent of2 resultswithin the time period is included. TSH 2.73 0.358 - 3.740 uIU/mL 02/07/2014 4:11 PM CDT [facility] Comment: Blood BLOOD SPECIMEN / Unknown 02/07/2014 9:52 AM CDT 02/07/2014 3:37 PM CDT Lorena Hopson Jarad T[facility] LAB - SHREDDER TENDER PEAT RY ORDERABLES Performing Organization Address [facility] de Phone Number [facility] [address] [place] [address] * T4 FREE (02/07/2014 9:52 AM CDT) Pathologist [facility] T4 Free 1.09 0.65 - 1.34 ng/dL 02/07/2014 4:06 PM CDT [facility] Comment: Blood BLOOD SPECIMEN / Unknown 02/07/2014 9:52 AM CDT 02/07/2014 3:37 PM CDT Lorena Hopson Jarad [facility] LAB - SHREDDER TENDER PEAT RY ORDERABLES Performing Organization Address [facility] de Phone Number [facility] [address] [place] [address] * (ABNORMAL) COMPREHENSIVE METABOLIC PANEL (02/07/2014 8:57 AM CDT) Only the most recent of4 resultswithin the time period is included. Glucose 56(L) 74 - 106 mg/dL 02/07/2014 4:06 PM CDT [facility] Sodium 137 136 - 145 mmol/L 02/07/2014 4:06 PM CDT [facility] Potassium 4.3 3.5 - 5.1 mmol/L 02/07/2014 4:06 PM CDT [facility] Chloride 104 98 - 107 mmol/L 02/07/2014 4:06 PM CDT [facility] CO2 26 22 - 31 mmol/L 02/07/2014 4:06 PM CDT [facility] Calcium 9.2 8.5 - 10.1 mg/dL 02/07/2014 4:06 PM CDT [facility] Anion Gap 7 5 - 15 mmol/L 02/07/2014 4:06 PM CDT [facility] BUN 4(L) 7 - 21 mg/dL 02/07/2014 4:06 PM CDT [facility] Creatinine 0.31(L) 0.50 - 1.30 mg/dL 02/07/2014 4:06 PM CDT [facility] eGFR by MDRD >60 >60 mL/min/1.7 3m2 02/07/2014 4:06 PM CDT [facility] eGFR by MDRD >60 >60 mL/min/1.7 3m2 02/07/2014 4:06 PM CDT [facility] Alkaline Phosphatase 113 38 - 126 U/L 02/07/2014 4:06 PM CDT [facility] ALT 14 12 - 78 U/L 02/07/2014 4:06 PM CDT [facility] AST 8 5 - 40 U/L 02/07/2014 4:06 PM CDT [facility] Protein Total 7.4 6.4 - 8.2 gm/dL 02/07/2014 4:06 PM CDT [facility] Albumin 2.7(L) 3.4 - 5.0 gm/dL 02/07/2014 4:06 PM CDT [facility] Bilirubin Total 0.2 0.2 - 1.0 mg/dL 02/07/2014 4:06 PM T [facility] Blood BLOOD SPECIMEN / Unknown 02/07/2014 8:57 AM CDT 02/07/2014 3:37 PM CDT Raven Coon MD LAB - CHEMISTRY [facility] Address City/State/ZIP Co de Phone Number [facility] [address] [place] [address] * (ABNORMAL) CREATININE CLEARANCE URINE TIMED (02/07/2014 8:53 AM CDT) Volume 24 Hour Urine 2,330 mL 02/07/2014 3:59 PM [facility] Collection Time Hours 24 hrs 02/07/2014 3:59 PM T [facility] Height Inches 61 inches 02/07/2014 3:59 PM T [facility] Weight in Pounds 204 pounds 02/07/2014 3:59 PM CDT [facility] Surface Area 1.91 02/07/2014 3:59 PM CDT [facility] Creatinine 0.31(L) 0.50 - 1.30 mg/dL 02/07/2014 3:59 PM CDT [facility] Creatinine Urine 43.08 mg/dL 02/07/2014 3:59 PM [facility] Creatinine 24 Hour Urine 1,004 800 - 1,800 mg/24hr 02/07/2014 3:59 PM [facility] Creatinine Clearance 204(H) 87 - 107 mL/min/1.73 m2 02/07/2014 3:59 PM [facility] Urine TIMED URINE SPECIMEN / Unknown 02/07/2014 8:53 AM CDT 02/07/2014 3:39 PM CDT Jacki Theodore MD LAB - URINE CHEMISTR Y ORDERABLES Performing Organization Address City/State/[facility] Co de Phone Number [facility] [address] [place] [address] * (ABNORMAL) URINALYSIS MICROSCOPIC ONLY (11/10/2013 6:58 AM CDT) RBC UA 0-2, 2-5 # /hpf 11/10/2013 7:24 AM [facility] WBC UA 2-5 0-2, 2-5 # /hpf 11/10/2013 7:24 AM [facility] Bacteria UA 3+(A) None Seen, Trace 11/10/2013 7:24 AM [facility] Epithelial Cell UA 2-5 0-2, 2-5 11/10/2013 7:24 AM T [facility] Mucus UA 2+ 11/10/2013 7:24 AM [facility] Amorphous Urate Crystals 2+(A) None Seen 11/10/2013 7:24 AM [facility] Urine URINE SPECIMEN OBTAINED BY CLEAN CATCH PROCEDURE / Unknown 11/10/2013 6:58 AM CDT 11/10/2013 7:01 AM CDT Manny Irwin MD LAB - URINALYSIS ORD ERABLES [facility] [address] [place] [address] * MRI SPINE LUMBAR WITH AND WITHOUT CONTRAST (04/21/2012 6:44 PM BILLET CUTTER) Anatomical Region Laterality Modality Spine Magnetic Resonan ce Impressions 04/22/2012 3:54 PM BILLET CUTTER 1. Minimal diffuse disc bulges and facet [...] Piyush Beach MD Narrative 04/22/2012 3:54 PM BILLET CUTTER EXAMINATION: Magnetic resonance imaging (MRI) of the [...] * XR SCOLIOSIS ERECT (03/27/2012 8:14 AM BILLET CUTTER) Only the most recent of5 resultswithin the time period is included. Anatomical Region Laterality Modality Spine Radiographic Angy ging 03/27/2012 12:5 9 PM BILLET CUTTER Impressions 03/27/2012 12:59 PM BILLET CUTTER Idiopathic scoliosis, fused, unchanged. Narrative 03/27/2012 12:59 PM BILLET CUTTER Scoliosis standing PA and lateral The spine [...] THORACIC SPINE 3 VW (05/10/2011 3:40 AM BILLET CUTTER) Anatomical Region Laterality Modality Spine Radiographic Angy ging 05/10/2011 7:27 AM BILLET CUTTER Impressions 05/10/2011 7:27 AM BILLET CUTTER Stable postoperative spine. Narrative 05/10/2011 7:27 AM BILLET CUTTER Thoracic spine examination dated May 10, 2011 [...] 2 OR 3 VW (05/10/2011 3:40 AM BILLET CUTTER) Anatomical Region Laterality Modality Spine Radiographic Angy ging 05/10/2011 7:25 AM BILLET CUTTER Impressions 05/10/2011 7:25 AM BILLET CUTTER Postoperative and degenerative changes, stable from the prior study. Narrative 05/10/2011 7:25 AM BILLET CUTTER Lumbosacral spine 2 views dated May 10, [...] * HCG URINE QUALITATIVE (05/10/2011 2:45 AM BILLET CUTTER) Only the most recent of2 resultswithin the time period is included. HCG Qual Urine Negative Negative [facility] Urine specimen (specimen) URINE / Unknown 05/10/2011 2:45 AM BILLET CUTTER 05/10/2011 3:04 AM BILLET CUTTER Roxie Bustillo MD LAB - URINALYSIS ORD ERABLES Performing Organization Address City/State/[facility] Co de Phone Number [facility] [address] [address] * CT ANGIO CHEST W WO CONTRAST (05/01/2010 12:54 AM BILLET CUTTER) Anatomical Region Laterality Modality Chest Computed Tomogra phy 05/01/2010 8:53 AM BILLET CUTTER Impressions 05/01/2010 11:[address] scan of the chest. No pulmonary embolism. D: Addison Ng M.D. Narrative 05/01/2010 11:43 AM BILLET CUTTER EXAMINATION: CTA chest with contrast dated May [...] * PT PTT PANEL (04/30/2010 11:36 PM BILLET CUTTER) PT 13.9 12.2-14.5 seconds seconds [facility] INR 1.1 0.8 - 1.2 [facility] PTT 32 23-36 seconds seconds [facility] BLOOD SPECIMEN / Unknown 04/30/2010 11:36 PM BILLET CUTTER 04/30/2010 11:41 PM BILLET CUTTER Yao Bose MD LAB - COAGULATION OR DERABLES Performing Organization Address City/[facility] Phone Number [facility] [address] [place] [address] * (ABNORMAL) DIFFERENTIAL MANUAL (04/30/2010 11:36 PM BILLET CUTTER) Only the most recent of2 resultswithin the time period is included. Comment Manual Diff Done [facility] Band % Manual 4 % [facility] Neutrophils % Manual 71(H) 24 - 66 % ROBERT [facility] Lymphocytes % Manual 15(L) 22 - 61 % [facility] Monocytes % Manual 9 3 - 15 % [facility] Dante Manual 1 % [facility] RBC Morphology Slight Anisocytosis [facility] BLOOD SPECIMEN / Unknown 04/30/2010 11:36 PM BILLET CUTTER 04/30/2010 11:53 PM BILLET CUTTER Yao Bose MD LAB - HEMATOLOGY ORD ERABLES Performing Organization Address City/[facility]/ZIP Co de Phone Number [facility] [address] [place] [address] * (ABNORMAL) D-DIMER (04/30/2010 10:12 PM BILLET CUTTER) D-Dimer 800-1600 ng/ml(H) 0 - 200 ng/ml [facility] Disclaimer D-Dimer This qualitative latex agglutination assay may not be sensitive enough for evaluation of deep vein thrombosis and or pulmonary embolism. Quantitative D-Dimer assays are available through reference lab. [facility] BLOOD SPECIMEN / Unknown 04/30/2010 10:12 PM BILLET CUTTER 04/30/2010 10:19 PM BILLET CUTTER Babs Pickering MD LAB - COAGULATION OR DERABLES Performing Organization Address [facility] Co de Phone Number [facility] [address] [place] [address] * XR CHEST PA AND LATERAL (04/30/2010 7:55 PM BILLET CUTTER) Anatomical Region Laterality Modality Chest Radiographic Angy ging 05/04/2010 8:42 AM BILLET CUTTER Impressions 05/04/2010 8:42 AM BILLET CUTTER Postoperative chest with no definite acute pulmonic process. Narrative 05/04/2010 8:42 AM BILLET CUTTER EXAMINATION:Two-view chest dated Apr 30, 2010 07:55:51 [...] THORACOLUMBAR SPINE 2 VW (04/24/2010 1:09 PM BILLET CUTTER) Anatomical Region Laterality Modality Spine Radio Fluoroscop y 04/24/2010 1:32 PM BILLET CUTTER Narrative 04/24/2010 3:52 PM BILLET CUTTER Exam: Fluoroscopic images of the thoracolumbar spine. [...] GLUC K CA+ PANEL (04/24/2010 12:22 PM BILLET CUTTER) pH Arterial 7.385 7.35 - 7.45 pH Units [facility] pCO2 Arterial 36.8 32 - 45 mm Hg [facility] pO2 Arterial 192(H) 83 - 108 mm Hg [facility] Hemoglobin Arterial 11.6(L) 12.0 - 16.0 gm/dl [facility] O2 Saturation Arterial 99.2(H) 95 - 99 % [facility] Oxyhemoglobin Arterial 97.6 94 - 98 % [facility] Carboxyhemoglobin Arterial 0.6 0.0 - 0.8 % [facility] Methemoglobin Arterial 1.0(H) 0.2 - 0.6 % [facility] O2 Content Arterial 16.4 15 - 23 mg/dl [facility] Base Excess Arterial -2.7 -2.0 - 2.0 mmol/L [facility] P50 Arterial 26.66 25.3 - 26.8 mm Hg [facility] Potassium Whole Blood 4.1 3.4 - 4.5 mmol/L [facility] Glucose WB 158(H) 70 - 106 mg/dl [facility] Calcium Ionized 1.10 mmol/L [facility] Calcium Ionized Adjusted 1.10(L) 1.15 - 1.29 mmol/L [facility] Specimen Type/Condition Blood Gas Art/ABL [facility] ARTERIAL BLOOD SPECIMEN / Unknown 04/24/2010 12:22 PM BILLET CUTTER 04/24/2010 12:32 PM BILLET CUTTER Ale Mcbride MD LAB - BLOOD GASES OR DERABLES Performing Organization Address [facility] Co de Phone Number [facility] [address] [place] [address] * TYPE SCRN XMATCH RBC X2 (04/24/2010 6:15 AM BILLET CUTTER) ABO Rh B POS [facility] Antibody Screen NEG Negative [facility] Products Ready 2 [facility] BLOOD SPECIMEN / Unknown 04/24/2010 6:15 AM BILLET CUTTER 04/24/2010 6:37 AM BILLET CUTTER Frank Roach MD LAB - BLOOD BANK ORD ERABLES Performing Organization Address [facility] de Phone Number [facility] [address] [place] [address] * PTT (04/16/2010 3:05 PM BILLET CUTTER) PTT 29 23-36 seconds seconds [facility] BLOOD SPECIMEN / Unknown 04/16/2010 3:05 PM BILLET CUTTER 04/16/2010 3:13 PM BILLET CUTTER Beti Sanford MD LAB - COAGULATION OR DERABLES Performing Organization Address [facility] Co de Phone Number [facility] [address] [place] [address] * PT-INR (04/16/2010 3:05 PM BILLET CUTTER) PT 12.6 12.2-14.5 seconds seconds [facility] INR 0.9 0.8 - 1.2 [facility] BLOOD SPECIMEN / Unknown 04/16/2010 3:05 PM BILLET CUTTER 04/16/2010 3:13 PM BILLET CUTTER Beti Sanford MD LAB - COAGULATION OR DERABLES Performing Organization Address [facility] de Phone Number [facility] [address] [place] [phone] * (ABNORMAL) PHOSPHORUS BLOOD (04/16/2010 3:05 PM BILLET CUTTER) Phosphorus 4.7(H) 2.8 - 4.6 mg/dl [facility] BLOOD SPECIMEN / Unknown 04/16/2010 3:05 PM BILLET CUTTER 04/16/2010 3:13 PM BILLET CUTTER Beti Sanford MD LAB - CHEMISTRY TYRONE RENTERIA Performing Organization Address [facility] de Phone Number [facility] [address] [place] [address] * MAGNESIUM BLOOD (04/16/2010 3:05 PM BILLET CUTTER) Pathologist [facility] Magnesium 1.9 1.6 - 2.3 mg/dl [facility] BLOOD SPECIMEN / Unknown 04/16/2010 3:05 PM BILLET CUTTER 04/16/2010 3:13 PM BILLET CUTTER Beti Sanford MD LAB - CHEMISTRY TYRONE RENTERIA Performing Organization Address [facility] de Phone Number [facility] [address] [place] [phone] * XR THORACIC SPINE BENDING VIEWS (04/16/2010 2:22 PM BILLET CUTTER) Anatomical Region Laterality Modality Spine Radiographic Angy ging 04/16/2010 2:57 PM BILLET CUTTER Impressions 04/16/2010 2:58 PM BILLET CUTTER Idiopathic scoliosis, decreased with bending to the right. Narrative 04/16/2010 2:58 PM BILLET CUTTER Thoracic spine bending views Correlation is made [...] included. C-Reactive Protein <0.5 <1.0 mg/dl mg/dl [facility] BLOOD SPECIMEN / Unknown 11/27/2009 3:25 PM CDT 11/27/2009 4:12 PM CDT Bobby Marcano MD LAB - CHEMISTRY ORD ERABLES Performing Organization Address City/[facility]/ZIP Co de Phone Number [facility] [address] [place] [phone] * (ABNORMAL) VITAMIN D 25-HYDROXY (11/27/2009 3:25 PM CDT) Only the most recent of2 resultswithin the time period is included. Vitamin D, 25 Hydroxy 22.12(L) 30 - 100 ng/ml [facility] BLOOD SPECIMEN / Unknown 11/27/2009 3:25 PM CDT 11/27/2009 4:12 PM CDT Narrative Resulting Agency Comment Performed By [facility] [address] [place] [address] Bobby Marcano MD LAB - CHEMISTRY ORD ERABLES [facility] [address] [place] [address] * (ABNORMAL) SED RATE WESTERGREN AUTO (11/27/2009 3:25 PM CDT) Only the most recent of2 resultswithin the time period is included. Erythrocyte Sedimentation Rate Westergren 16(H) 0 - 13 mm/Hr [facility] BLOOD SPECIMEN / Unknown 11/27/2009 3:25 PM CDT 11/27/2009 4:12 PM CDT Bobby Marcano MD LAB - HEMATOLOGY OR DERABLES Performing Organization Address City/State/[facility] Co wi Phone Number [facility] [address] [place] [address] * XR TIBIA AND FIBULA 2 VW LEFT (06/05/2009 2:13 PM BILLET CUTTER) Anatomical Region Laterality Modality Lower Extremity Other 06/05/2009 2:13 PM BILLET CUTTER Narrative 06/05/2009 4:49 PM BILLET CUTTER Exam- Left tibia and fibula AP and lateral views The osseous, joint and soft tissues are normal. Impression- Normal. Reading Amanda RICHMOND MD Releasing Amanda RICHMOND MD Released Date Time- 06/05/091649 [employer] NetLeny RICHMOND MD ADM- VALERIANO,BOBBY H ATT- VALERIANO,BOBBY H ORD- VALERIANO,BOBBY H CON- PCP- TATE BARBOZA- TATE BARBOZA Procedure Note Bonnie Richmond MD, - 06/05/2009 Exam- Left tibia and fibula AP and lateral views The osseous, joint and soft tissues are normal. Impression- Normal. Reading Amanda RICHMOND MD Releasing Amanda RICHMOND MD Released Date Time- 06/05/091649 [employer] Netsincere RICHMOND MD ADM- VALERIANO,BOBBY H ATT- VALERIANO,BOBBY H ORD- VALERIANO,BOBBY H CON- MARICHUY- ATTE BARBOZA- TATE BARBOZA Bobby Marcano MD DIAGNOSTIC IMAGING ORDERABLES * SM ANTIBODY DAQUAN (06/05/2009 1:55 PM BILLET CUTTER) Pathologist [facility] [place] (DAQUAN) Antibody 1.61 SEE BELOW EU [facility] Comment: <20 Negative 20-25 Borderline Positive >25 Positive Interpretation Autoimmune Antibody [facility] Comment: Borderline results have been retested. Rv Repair Technician states that if results are still borderline, the test sample has no significant antibodies. BLOOD SPECIMEN / Unknown 06/05/2009 1:55 PM BILLET CUTTER Narrative Resulting Agency Comment Performed By [facility] [address] [place] [address] Bobby Marcano MD LAB - CHEMISTRY ORD GetThisBLES Performing Organization Address City/[facility]/ZIP Co de Phone Number [facility] * STRUCTURES MECHANIC ANTIBODY (06/05/2009 1:55 PM BILLET CUTTER) [facility] STRUCTURES MECHANIC Antibody 5.26 SEE BELOW [facility] Comment: <20 Negative 20-25 Borderline Positive >25 Positive Interpretation Autoimmune Antibody [facility] Comment: Borderline results have been retested. Rv Repair Technician states that if results are still borderline, the test sample has no significant antibodies. BLOOD SPECIMEN / Unknown 06/05/2009 1:55 PM BILLET CUTTER Narrative Resulting Agency Comment Performed By [facility] Bobby Marcano MD LAB - CHEMISTRY ORD ERABLES [facility] * RHEUMATOID FACTOR BLOOD QUANTITATIVE (06/05/2009 1:55 PM BILLET CUTTER) Rheumatoid Factor 8.3 <60.0 IU/ml [facility] BLOOD SPECIMEN / Unknown 06/05/2009 1:55 PM BILLET CUTTER Narrative Resulting Agency Comment Performed By [facility] [address] [place] [address] Bobby Marcano MD LAB - CHEMISTRY ORD ERABLES Performing Organization Address City/[facility]/ZIP Co de Phone Number [facility] * DIANA BLOOD TITER (06/05/2009 1:55 PM BILLET CUTTER) DIANA Positive, less than 1 to 40 Negative [facility] DIANA Pattern No pattern detected. [facility] BLOOD SPECIMEN / Unknown 06/05/2009 1:55 PM BILLET CUTTER Narrative Resulting Agency Comment Performed By [facility] [address] [place] [address] Bobby Marcano MD LAB - CHEMISTRY ORD ERABLES Performing Organization Address [facility]/ZIP Co de Phone Number [facility] * DIANA BLOOD SCREEN (06/05/2009 1:55 PM BILLET CUTTER) DIANA Positive, reflexed to Titer Negative [facility] Comment DIANA [facility] Comment: Titer will be performed on all positive results. BLOOD SPECIMEN / Unknown 06/05/2009 1:55 PM BILLET CUTTER Narrative Resulting Agency Comment Performed By [facility] [address] [place] [address] Bobby Marcano MD LAB - CHEMISTRY ORD ERABLES Performing Organization Address City/[facility]/ZIP Co de Phone Number [facility] * HLA TYPING B27 (06/05/2009 1:55 PM BILLET CUTTER) HLA-B27 Negative Negative [facility] Comment Ref Lab CARD INAL [facility] Comment: TEST INFORMATIONF HLA-B27 HLA-B27 is a serologically defined allele of the human HLA-B locus. The presence of the HLA-B27 antigen is strongly associated with ankylosing spondylitis and related disorders. The performance characteristics of this test were determined by [employer]. BLOOD SPECIMEN / Unknown 06/05/2009 1:55 PM BILLET CUTTER Narrative Resulting Agency Comment Performed By [employer] [address] [place], [place] [address] Bobby Marcano MD LAB - CHEMISTRY ORD ERABLES Performing Organization Address [facility] de Phone Number [facility] * SS-B ANTIBODY (06/05/2009 1:55 PM BILLET CUTTER) SS-B Antibody 1.38 SEE BELOW EU [facility] Comment: <20 Negative 20-25 Borderline Positive >25 Positive Interpretation Autoimmune Antibody [facility] Comment: Borderline results have been retested. Rv Repair Technician states that if results are still borderline, the test sample has no significant antibodies. BLOOD SPECIMEN / Unknown 06/05/2009 1:55 PM BILLET CUTTER Narrative Resulting Agency Comment Performed By [facility] [address] [place] [address] Bobby Marcano MD LAB - CHEMISTRY ORD ERABLES Performing Organization Address [facility] de Phone Number [facility] * SS-A ANTIBODY (06/05/2009 1:55 PM BILLET CUTTER) SS-A Antibody 1.66 SEE BELOW EU [facility] Comment: <20 Negative 20-25 Borderline Positive >25 Positive Interpretation Autoimmune Antibody [facility] Comment: Borderline results have been retested. Rv Repair Technician states that if results are still borderline, the test sample has no significant antibodies. BLOOD SPECIMEN / Unknown 06/05/2009 1:55 PM BILLET CUTTER Narrative Resulting Agency Comment Performed By [facility] [address] [place] [address] Bobby Marcano MD LAB - CHEMISTRY ORD ERABLES Performing Organization Address [facility]/ZIP Co de Phone Number [facility] * SCL70 ANTIBODY (06/05/2009 1:55 PM BILLET CUTTER) SCL-70 Antibody 3.48 SEE BELOW CARD INAL [facility] Comment: <20 Negative 20-25 Borderline Positive >25 Positive Interpretation Autoimmune Antibody [facility] Comment: Borderline results have been retested. Rv Repair Technician states that if results are still borderline, the test sample has no significant antibodies. BLOOD SPECIMEN / Unknown 06/05/2009 1:55 PM BILLET CUTTER Narrative Resulting Agency Comment Performed By [facility] [address] [place] [address] Bobby Marcano MD LAB - CHEMISTRY ORD ERABLES Performing Organization Address [facility] Co de Phone Number [facility] * DNA ANTIBODY DOUBLE STRAND (06/05/2009 1:55 PM BILLET CUTTER) dsDNA Antibody 12.46 SEE BELOW IU [facility] Comment: <25 Negative 25-30 Borderline Positive 30-60 Low Positive 60-200 Positive >200 Strong Positive Comment dsDNA [facility] Comment: dsDNA antibodies are screened using an SCOTT assay. Positive results are reflexed to titer by [employer]. BLOOD SPECIMEN / Unknown 06/05/2009 1:55 PM BILLET CUTTER Narrative Resulting Agency Comment Performed By [facility] [address] [place] [address] Bobby Marcano MD LAB - HEMATOLOGY OR DERABLES [facility] * ALDOLASE (06/05/2009 1:55 PM BILLET CUTTER) Aldolase 5.0 3.3 - 9.7 U/L [facility] BLOOD SPECIMEN / Unknown 06/05/2009 1:55 PM BILLET CUTTER Narrative Resulting Agency Comment Performed By [employer] [address] [place] [id number] Bobby Marcano MD LAB - CHEMISTRY ORD ERABLES Performing Organization Address City/[facility]/ZIP Co de Phone Number [facility] * CYCLIC CITRUL PEPTIDE AB IGG (CCP) (06/05/2009 1:55 PM BILLET CUTTER) Cyclic Citrullinated Peptide Antibody IgG 0.00 <5.0 units [facility] BLOOD SPECIMEN / Unknown 06/05/2009 1:55 PM BILLET CUTTER Narrative Resulting Agency Comment Performed By [facility] [address] [place] [address] Bobby Marcano MD LAB - CHEMISTRY ORD ERABLES Performing Organization Address [facility] Co de Phone Number [facility] * (ABNORMAL) CK BLOOD (06/05/2009 1:55 PM BILLET CUTTER) CK 30(L) 50 - 240 Units/L [facility] Specimen Type/Condition NVH [facility] BLOOD SPECIMEN / Unknown 06/05/2009 1:55 PM BILLET CUTTER Bobby Marcano MD LAB - CHEMISTRY ORD ERABLES Performing Organization Address [facility]/ZIP Co de Phone Number [facility] Care Teams National Account Executive Relationship Specialty Start Date End Date Beatriz Savage MD PCP - General 10/18/15
--- OUTSIDE RECORDS SUMMARY | 2024-06-22 08:53 | XMS_ITS | Clinical Summary ---
Author Organization [facility] [employer] Address [address] [place] [address] Care Team Providers Care Animal Attendants And Trainers Name Role Phone Beatriz Savage MD Primary Care Provider [phone] Source Comments [facility] [employer],non-owned Affiliates and Associated Physician Practices is amultiple site organization consisting of ambulatory clinics and hospital sitesin [place], [place], [place] and [place]. This disclosure is being madepursuant to the Care Everywhere program and may not contain all information available regarding this patient. Last updated 18.[facility] [employer] Allergies No known active allergies Medications * Be aware that medications may not be up to date on this document. Alwaysverify current medications with the patient. Medication Sig Dispensed Refills Start Date End Date Status Prenat w/o [id number] WEBB (+DHA) 27-1 & 250 MG MISC [...] fluticasone propionate (Flonase) 50 MCG/ACT nasal spray [place] 2 (two) sprays into each nostril as [...] different from the original. Patient phone number [phone] [facility] Problem Noted Date Diagnosed Date Encounter [...] Department Care Team Description 06/14/2024 9:15 AM [employer] Office Visit [facility] [address] [place] [phone] Gerardo Rodriguez MD MIRA (obstructive sleep apnea) [...] Comments Blood Pressure 126/82 06/14/2024 9:07 AM [employer] Pulse 71 06/14/2024 9:07 AM [employer] Temperature 36.4 C (97.5 F) 12/17/2022 3:47 PM CDT Respiratory Rate 16 12/17/2022 5:01 PM CDT Oxygen Saturation 95% 12/17/2022 5:01 PM CDT Inhaled Oxygen Concentration 100% 04/27/2010 7 :00 AM [employer] Weight 109.3 kg (241 lb) 06/14/2024 9:07 AM [employer] Height 154.9 cm (5' 1 ) 06/14/2024 9:07 AM [employer] Body Mass Index 45.54 06/14/2024 9:07 AM [employer] Plan of Treatment Upcoming Encounters Date Type Department Care Team (Late st Contact Info) Description 09/13/2024 9:15 AM CDT Office Visit [facility] [address] [place] [phone] Gerardo Rodriguez MD [address] [place] [address] [address] [place] [address] 09/23/2024 10:20 AM CDT [facility] [address] [place] [phone] Twila Ramsey APNP-METAL FLOORING INSTALLER [address] DIV OF PULMONARY/[place] [address] Health Maintenance Due Date Last Done Comments [...] this topic MENINGOCOCCAL VACCINE Aged Out No sav steve eligible based on patient's age to complete this topic Procedures Procedure Name Priority Date/Time Associated Diagnosis Comments CYTOLOGY CERVICAL/VAG PAP SCREEN THIN PREP Routine 03/28/2015 11:56 AM [employer] HIV-1 HIV-2 ANTIBODY + HIV P24 AG PANEL Routine 03/28/2015 11:55 AM [employer] from Last 3 Months or Most Recently Relevant to Health Maintenance Results * CYTOLOGY CERVICAL/VAG SCREEN THIN PREP (03/28/2015 11:56 AM [employer]) ThinPrep Pap See Scanned Report 04/12/2015 10:42 AM [employer] [facility] NON INTERF Miscellaneous samples (specimen) ENTIRE ENDOCERVIX / Unknown Collection / Unknown 03/28/2015 11:56 AM [employer] 03/29/2015 11:52 AM [employer] Kimberly John GLOBAL SALES EXECUTIVE-CNM LAB - PATHOLOGY/CY TOLOGY ORDERABLES [facility] RE[facility] NON INTERF [address] * HIV-1 HIV-2 ANTIBODY + HIV P24 AG PANEL (03/28/2015 11:55 AM [employer]) HIV1/2 Ab + P24 Ag Non Reactive Non Reactive 03/28/2015 4:56 PM [employer] [facility] Blood BLOOD SPECIMEN / Unknown Venipuncture / Unknown 03/28/2015 11:55 AM [employer] 03/28/2015 1:03 PM [employer] Narrative [facility] - 03/28/2015 4:56 PM [employer] No Laboratory evidence of HIV infection. Kimberly Lopez APRN-SARAH LAB - CHEMISTRY OR DERABLES Performing Organization Address City/State/[facility] Co de Phone Number [facility] [address] [place] [address] from Last 3 Months or Most Recently [...] 9:51 PM 07/07/2015 12:47 AM Care Teams Animal Attendants And Trainers Relationship Specialty Start Date End Date Beatriz Savage MD PCP - General 10/18/15
[2024-06-22 09:20] LABS: Add Urine Microscopic? YES; Appearance Urine Cloudy (Clear); Bacteria Urine None Seen /hpf; Bilirubin Urine Negative (Negative); Blood Urine Negative (Negative); Budding Yeast Urine Present /hpf; Color Urine Yellow (Yellow); Glucose Urine UA Negative (Negative); Ketones Urine Trace mg/dL (Negative); Leukocyte Esterase Ur 2+ LEU/UL (Negative); Need Manual Microscopic Reviewed; Nitrate Urine Negative (Negative); Non Pathogenic Casts 0-2; Protein Urine Trace mg/dL (Negative); Specific Grav Ur 1.031 (1.001-1.035); Squamous Epithelial Cell Urine Moderate /hpf (Few); WBC Urine 21-50 /hpf (0-3); pH Urine 6.5 (5.0-9.0)
[2024-06-22 09:52] VITALS: BP 122/78; PULSE 78; RESP 15; TEMP 36.4; O2SAT 100
[2024-06-22 10:16] LABS: Trichomonas Vag PCR NOT DETECTED (NOT DETECTE)
[2024-06-22 10:38] LABS: Chlamydia trachomatis NOT DETECTED (NOT DETECTE); Neisseria gonorrhoeae PCR NOT DETECTED (NOT DETECTE)
[2024-06-23 09:59] LABS: Bacterial Vaginosis NEGATIVE (NEGATIVE)
[2024-06-25 10:08] LABS: Herpes Simplex Type 1 DNA PCR Not Detected (Not Detected); Herpes Simplex Type 2 DNA PCR Not Detected (Not Detected)
== END 2024-06-22 09:54 | disposition home or self-care (01) ==
PROVIDERS: Student in an Organized Health Care Education/Training Program; Emergency Provider Emergency Medicine; PCP Family Medicine
DX: N76.0 Acute vaginitis (principal); F41.9 Anxiety disorder, unspecified; J45.909 Unspecified asthma, uncomplicated
CPT/HCPCS: 36415; 81001; 81025; 81513; 87491; 87529; 87591; 87661; 99284; A9270